=== PATIENT | male | born 1955 | race Caucasian/White ===

== ENCOUNTER 2019-12-01 15:38 | Emergency (ER) | payer MEDICARE, SELFPAY ==
[2019-12-01 15:40] VITALS: BP 156/96; PULSE 65; RESP 12; TEMP 37.3; O2SAT 98; BMI 23.6
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
== END 2019-12-01 17:07 | disposition home or self-care (01) ==
LOC: ED 17:04
PROVIDERS: Emergency Provider Emergency Medicine
DX: S06.9X1A Unspecified intracranial injury with loss of consciousness of 30 minutes or less, initial encounter (principal); S16.1XXA Strain of muscle, fascia and tendon at neck level, initial encounter; S70.01XA Contusion of right hip, initial encounter; V43.54XA Car driver injured in collision with van in traffic accident, initial encounter; Y93.89 Activity, other specified; Y92.9 Unspecified place or not applicable; E78.00 Pure hypercholesterolemia, unspecified; Z72.0 Tobacco use; Z86.73 Personal history of transient ischemic attack (TIA), and cerebral infarction without residual deficits
CPT/HCPCS: 70450; 72125; 73502; 99282

== ENCOUNTER 2020-04-28 11:32 | Inpatient (IN) | payer MEDICARE, SELFPAY ==
[2020-04-28] VITALS (30 sets, daily range): BP systolic 94–154; BP diastolic 35–95; PULSE 70–141; RESP 17–31; TEMP 36.3–36.6; O2SAT 95–100; BMI 23.7; BMI 24.2
--- NOTE | 2020-04-28 11:40 | RAD_ITS ---
STUDY: X-RAY CHEST REASON FOR EXAM: Male, 65 years old. Chest pain TECHNIQUE: Frontal view of the chest COMPARISON: None. FINDINGS: There is patchy opacity in the left lower lung field. The lungs are otherwise clear. There are no pleural effusions. There is no pneumothorax. The heart is normal in size. The visualized osseous structures are within normal limits. RAD/Chest 1 View (Portable) IMPRESSION: Patchy opacity in the left lower lung field which is likely infectious in etiology. Electronically Signed: Gavin Noel, at 12:05 EDT Tel , Service support ,
--- NOTE | 2020-04-28 11:40 | EKG12_ITS ---
Test Reason : CHEST PAIN Blood Pressure : / mmHG Vent. Rate : 082 BPM Atrial Rate : 082 BPM P-R Int : 156 ms QRS Dur : 094 ms QT Int : 366 ms P-R-T Axes : 037 -14 -35 degrees QTc Int : 427 ms Normal sinus rhythm Inferior infarct , recent T wave abnormality, consider anterolateral ischemia Abnormal ECG Confirmed by ANGELINE COLLINS, JAZ ([id number]), assignment desk editor ELLIOTT TRACEY ([id number]) on 04/30/2020 1:07:09 PM Referred By: Fito Qiu Confirmed By:JAZ MARCUS MD
--- NOTE | 2020-04-28 11:45 | CM.ED ---
SOCIAL WORK Reason for Consult: STEMI Responded to STEMI alert. Nursing and physician in with patient. No family present at this time. This worker to remain available for needs. Barbara Malhotra, PROTECTIVE SIGNAL REPAIRER, BALLOON TESTER
--- NOTE | 2020-04-28 11:54 | ED.VIS.GEN ---
History of Present Illness Chief Complaint: Chest Pain Informant: Patient Narrative: Patient is a 65-year-old male who presents to the emerge department for chest pain which is been ongoing for the past 2 days. He initially stated that lying down flat relieved his pain but his pain has become more constant and that is why is coming into the emerge department today. No associated shortness of breath. He feels like the pain is sharp stabbing over his left chest wall. He states feels like my lung is collapsed. He has not taken any aspirin today. He has never had this pain before in the past. Otherwise no known aggravating or relieving factors. No swelling or pain in his calves. No history of heart attacks, DVT/PE. He does have a distant history of stroke. He does not currently take any medications. He does have history of hyperlipidemia. Current every day smoker. Denies any alcohol or drug abuse. Past Medical History - Allergies and Home Meds Allergies/Adverse Reactions: Allergies BEES Allergy (Uncoded 04/28/20 11:38) Anaphylaxis Prior records reviewed: Yes Past Medical History: - - Stroke, hyperlipidemia Smoking Status: Current every day smoker Alcohol: None Drugs: None Review of Systems All systems negative except as indicated General: Denies: Chills, Fever, Sweats Eyes: Denies: Visual changes - bilaterally, Diplopia ENT: Denies: Rhinorrhea, Sore throat Cardiovascular: Reports: Chest pain. Denies: Palpitations Respiratory: Denies: Dyspnea, Cough, Dyspnea on exertion Gastrointestinal: Denies: Abdominal pain, Nausea, Vomiting, Diarrhea Genitourinary: Denies: Dysuria, Hematuria, Frequency Musculoskeletal: Denies: Back pain, Extremity Pain Skin: Denies: Rash, Wounds Neurological: Denies: Headache, Weakness, Numbness Physical Exam Vital Signs/Narrative: Vital Signs Temp Pulse Resp BP Pulse Ox 04/28/20 11:36 97.4 F L 85 22 H 132/35 H 95 Inital Vital Signs reviewed: Yes General: Well nourished, Well developed, Acute Distress, - - Patient moaning and grunting holding his chest. Head: Normocephalic, Atraumatic Eyes: Perrl, EOMI ENT: Moist mucous membranes, No rhinorrhea Neck: Supple, Nontender Cardiovascular: Regular rate, Regular rhythm, No murmurs Respiratory: No distress, CTA bilaterally, Chest nontender Abdomen: Soft, Nontender, Nondistended, Normal bowel sounds Back: Nontender, Normal Inspection Extremities: Nontender, No edema Skin: Normal color, No rash Neurological: Alert, Oriented x3, Cranial nerves II-XII grossly intact, Normal Strength, Normal Sensation Diagnostic/Tx/Re-eval - EKG Initial EKG Interpretation: - - EKG shows a rate of 82 bpm in sinus rhythm. Normal intervals. Left axis deviation. He does have ST elevations in lead II, III and aVF. He also has some elevations in V3 through V5. There are some Q wave changes. No prior EKG for comparison. STEMI alert is called. - Medical Decision Making Patient presents to the emerge department for chest pain last 2 days. Upon arrival an EKG was obtained which did show evidence of ST elevation ND. Heart stat was called and I spoke to Dr. Qiu. Give aspirin, Brilinta, heparin and morphine. Blood work being obtained along with chest x-ray. Patient's chest x-ray did show evidence of consolidation and will treat with community-acquired antibiotics including azithromycin and Rocephin. Blood cultures being obtained. Patient requiring multiple dose of morphine for symptomatic treatment. We will hold off on nitroglycerin given the inferior ND. Patient transported to catheter lab with lead java j2ee developer. Hospitalist aware of patient. - Critical Care Time Critical care time (excluding procedures): 30-74 minutes, Discussing w/Patient &/or Family/Ice Puller, Discussing w/Consultants, Arranging Admission or Transfer, Performing Direct Patient Care at Bedside ED Disposition - Plan for ED Patient: Disposition: Home or Assisted Living Diagnosis: STEMI (ST elevation myocardial infarction), Community acquired pneumonia
[2020-04-28] MEDS: Heparin Injection (Vial) 5,000 UNIT/ML VIAL 4000 UNIT IV (11:55)
[2020-04-28] MEDS: TICAGRELOR 90 MG TABLET 180 MG PO (11:55)
[2020-04-28] MEDS: Aspirin 81 MG TAB.CHEW 324 MG PO (11:56)
[2020-04-28] MEDS: Morphine 4 MG/ML Syringe IV (11:56)
[2020-04-28 11:58] LABS: Absolute Lymphocyte Count 2.92 X10^3/uL (0.83-4.51); Absolute Neutrophil Count 17.1 X10^3/uL (2.0-7.7); Basophil# 0.05 X10^3/uL; Basophil% 0.2 % (0-1); Eosinophil# 0.05 X10^3/uL; Eosinophils% 0.2 % (0-5); Hematocrit 53.6 % (40-54); Hemoglobin 17.4 g/dL (13.0-16.5); Lymphocyte # 2.92 X10^3/ul (4.0); Lymphocyte % 12.7 % (19-41); Mean Corp Hgb Conc 32.5 g/dL (32-36); Mean Corpuscular Volume 98.7 fL (80-94); Mean Platelet Vol. 11.2 fl (6.2-12.0); Monocyte# 2.64 X10^3/uL; Monocyte% 11.5 % (0-10); NRBC Flagged by Analyzer 0 % (0-5); Neutrophil # 17.05 X10^3/uL (2.7-7.7); Neutrophil % 74.1 % (47-70); POSITIVE DIFFERENTIAL YES; Platelet Count 290 K/mm3 (150-450); RBC Distribution Width CV 13.8 % (11.6-14.6); RBC Distribution Width SD 49.9 fl (35.1-43.9); Red Blood Count 5.43 M/mm3 (4.6-6.2)
[2020-04-28 12:02] LABS: Differential Indicated SCAN CRITERIA MET
[2020-04-28 12:17] LABS: International Normalized Ratio 1.1; Prothrombin Time (Protime)PT. 13.3 SECONDS (11.7-14.9)
[2020-04-28] MEDS: HYDROmorphone 1 MG/ML Syringe IV ×3 (12:17→19:13)
[2020-04-28 12:18] LABS: Partial Thromboplast Time 26.9 Seconds (24.1-36.2)
[2020-04-28] MEDS: Ketorolac 30 MG/ML Syringe IV ×2 (12:20→22:10)
--- NOTE | 2020-04-28 12:31 | HP.PCM_ITS ---
Problem List (1) STEMI (ST elevation myocardial infarction) Status: Acute (2) Community acquired pneumonia Status: Acute (3) History of stroke Status: Chronic (4) Hyperlipidemia Status: Chronic History of Present Illness Date of Admission: 04/28/20 Chief Complaint: Chest pain. The patient is a 65 year old M with past medical history as mentioned above presented to the emergency room because of chest pain. This pain started 2 days ago, left-sided chest pain, sharp pain, was mild and has been progressing, today pain went up to 10 constant in severity, radiates to his left upper extremity, associated with shortness of breath and without relieving or aggravating factors. He denies syncope or presyncope. Currently, he is in severe pain, received a total of 4 mg of IV morphine as well as IV Dilaudid with no improvement. He mentioned that he had a fever at home but he is not sure how much it was. He denied cough or sputum production. He denied abdominal pain, nausea or vomiting. In the emergency department, he was afebrile, blood pressure was stable, was dyspneic and tachypneic, pulse ox is 95% on room air. Routine blood work was remarkable for significant leukocytosis, otherwise normal. Chest x-ray revealed left lower lobe linear opacity as well as questionable left basilar infiltrate. EKG revealed normal sinus rhythm, minimal ST elevation in leads II, III, aVF, V3 and V4. Troponin was elevated at 20.5. Patient underwent emergent cardiac catheterization. Past Medical History Past Medical History (Chronic Problems): Chronic Problems Tobacco abuse (Chronic) History of stroke (Chronic) Hyperlipidemia (Chronic) Allergies BEES Allergy (Uncoded 04/28/20 11:38) Anaphylaxis Home Medications: Ambulatory Orders Medication Instructions Recorded NK 12/01/19 Surgical History: no surgical history Lives: Alone Smoking Status: Current every day smoker Tobacco Use: Cigarettes Alcohol: Occasional Drugs: None - *Family History Maternal History Items: No pertinent history Paternal History Items: No pertinent history Review of Systems Constitutional: Reports: Fever. Denies: Anorexia, Chills, Weakness Eyes: Denies: Blurred vision, Double vision, Drainage, Vision Change HEENT: Denies: Difficulty Hearing, Ear Pain, Eye Pain, Nasal Congestion, Sinus Drainage, Sore Throat Cardiovascular: Reports: Chest Pain, Chest Pressure. Denies: Edema, Heaviness, Light Headedness, Orthopnea, Palpitations, Paroxysmal Noc. Dyspnea, Syncope Respiratory: Reports: Pleuritic Pain, Shortness of breath at rest, Shortness of breath upon exertion. Denies: Cough, Sputum production, Wheezing Gastrointestinal: Denies: Abdominal Pain, Constipation, Diarrhea, Nausea, Vomiting Genitourinary: Denies: Dysuria, Frequency, Hematuria Musculoskeletal: Denies: Arm Pain, Back Pain, Foot Pain Skin: Denies: Dryness, Rash Neurological: Denies: Balance problems, Double vision, Change in Speech, Slurred speech, Confusion, Headaches, Incoordination, Numbness Psychiatric: Denies: Anxiety, Depression Endocrine: Denies: Change in Body Habitus, Polydipsia, Polyuria VTE Information - Inpt Only VTE Present on Admission: No VTE Mechan Device Prophylaxis: None VTE Pharm Prophylaxis ordered?: Yes Patient Problems: Active and Suspected Problems STEMI (ST elevation myocardial infarction) (Acute) Community acquired pneumonia (Acute) - Physical Exam Vitals/I&O's: Vital Signs Temp Pulse Resp BP Pulse Ox 97.4 F L 85 25 H 142/93 H 95 04/28/20 11:36 04/28/20 11:36 04/28/20 11:50 04/28/20 11:50 04/28/20 11:36 Oxygen Flow Rate (L/min) 2 Oxygen Delivery Method Nasal Cannula Weight: 170 lb Body Mass Index (BMI) 23.7 General: Alert, Oriented x3, Cooperative, - - He is in severe pain, distress. HEENT: Atraumatic, PERRLA, EOMI, Normocephalic Oral: Moist Mucosa, No Gingival or Mucosal Lesions/ Ulcerations Neck: Supple, No JVD, Negative Carotid Bruits, Trachea Midline, Thyroid Normal Size and Texture Lungs: No wheeze, Diminished, Rales, Rhonchi, Short of Breath, - - Decreased breath sounds bilateral, bilateral rhonchi. Cardiovascular: Regular rate, Regular Rhythm, Normal S1, Normal S2, No murmurs, PMI Normal Abdomen: Bowel Sounds Present, Soft, Non Tender, Non-Distended, No Hepato- splenomegaly Extremities: No cyanosis, No edema Skin: No rashes, No breakdown Lymphatic: No Cervical, Supraclavicular, or Inguinal Adenopathy Neurological: Cranial nerves II-XII grossly intact, Motor Exam 5/5 strength throughout Psych/Mental Status: Anxious, Restless, Alert and oriented to time, place, person, mood and affect Laboratory Results 04/28/20 11:40: WBC 23.0 H, RBC 5.43, Hgb 17.4 H, Hct 53.6, MCV 98.7 H, MCH 32.0, MCHC 32.5, RDW Std Deviation 49.9 H, RDW Coeff of Julita 13.8, Plt Count 290, MPV 11.2, Immature Gran % (Auto) 1.300 H, Neut % (Auto) 74.1 H, Lymph % (Auto) 12.7 L, [place] % (Auto) 11.5 H, Eos % (Auto) 0.2, Baso % (Auto) 0.2, Absolute Neuts (auto) 17.1 H, Absolute Lymphs (auto) 2.92, Nucleated RBC % 0, Diff Path Review February04/28/20 11:40: Sodium Pending, Potassium Pending, Chloride Pending, Carbon Dioxide Pending, Anion Gap Pending, BUN Pending, Creatinine Pending, Est GFR (MDRD) Af Amer Pending, Est GFR (MDRD) Non-Af Pending, BUN/Creatinine Ratio Pending, Glucose Pending, Calcium Pending, Magnesium Pending, Troponin I Pending 04/28/20 11:40: PT 13.3, INR 1.1, APTT 26.9 Laboratory Tests 04/28/20 04/28/20 04/28/20 Range/Units 11:40 11:40 11:40 WBC 23.0 H (4.4-11.0) K/mm3 RBC 5.43 (4.6-6.2) M/mm3 Hgb 17.4 H (13.0-16.5) g/dL Hct 53.6 (40-54) % MCV 98.7 H (80-94) fL MCH 32.0 (27.0-32.0) pg MCHC 32.5 (32-36) g/dL RDW Std Deviation 49.9 H (35.1-43.9) fl RDW Coeff of Julita 13.8 (11.6-14.6) % Plt Count 290 (150-450) K/mm3 MPV 11.2 (6.2-12.0) fl Immature Gran % (Auto) 1.300 H (0.0-0.9) % Neut % (Auto) 74.1 H (47-70) % Lymph % (Auto) 12.7 L (19-41) % [place] % (Auto) 11.5 H (0-10) % Eos % (Auto) 0.2 (0-5) % Baso % (Auto) 0.2 (0-1) % Absolute Neuts (auto) 17.1 H (2.0-7.7) X10^3/uL Absolute Lymphs (auto) 2.92 (0.83-4.51) X10^3/uL Nucleated RBC % 0 (0-5) % Diff Path Review February foll PT 13.3 (11.7-14.9) SECONDS INR 1.1 APTT 26.9 (24.1-36.2) Seconds Sodium 137 (136-145) mmol/L Potassium 4.4 (3.5-5.1) mmol/L Chloride 103 (98-107) mmol/L Carbon Dioxide 29.0 (21.0-32.0) mmol/L Anion Gap 5 (5-15) BUN 13 (7-18) mg/dL Creatinine 1.30 (0.70-1.30) mg/dL Estim Creat Clear Calc 61.95 ml/min Est GFR (MDRD) Af Amer 72 (>60) mL/min Est GFR (MDRD) Non-Af 59 L (>60) mL/min BUN/Creatinine Ratio 10.0 (10-20) RATIO Glucose 119 H (74-106) mg/dL Calcium 9.4 (8.5-10.1) mg/dL Magnesium 2.5 (1.6-2.6) mg/dL Troponin I 20.500 H* (<0.045) ng/mL Clinical Impression(s) from Imaging Studies Chest X-Ray 04/28/20 11:40 IMPRESSION: Patchy opacity in the left lower lung field which is likely infectious in etiology. Electronically Signed: Gavin Noel, at 12:05 EDT Tel , Service support , Current Medications Ceftriaxone Sodium 2 gm/ (Sodium Chloride) 50 mls @ 100 mls/hr IV X1 ONE Stop: 04/28/20 12:40 Azithromycin 500 mg/ Dextrose 255 mls @ 250 mls/hr IV X1 ONE Stop: 04/28/20 13:13 Assessment/Plan All Active Problems STEMI (ST elevation myocardial infarction) (Acute) Community acquired pneumonia (Acute) This is a 65 years old male patient presented to the emergency room because of chest pain or shortness of breath, found to have acute ST elevation MS, underwent emergent cardiac catheterization and also found to have community- acquired pneumonia. #[address] elevation MS: Patient currently having chest pain. EKG revealed normal sinus rhythm, minimal ST elevation in leads II, III, aVF, V3 and V4. He received aspirin, IV heparin and loading Brilinta. He underwent emergent cardiac catheterization, found to have occluded RCA, status post stenting. Reportedly, pain resolved after stenting of the RCA. Plan: Admit to ICU, complete bedrest, cardiac diet, gentle IV fluids for hydration, IV morphine PRN for pain, Tylenol PRN, start aspirin, Lipitor, Brilinta, beta blockers, 2D echocardiogram, cardiology consult, repeat CBC and CMP tomorrow morning, fasting lipid profile, hemoglobin A1c, TSH, PT OT evaluation and treatment when appropriate. #2 bilateral community-acquired pneumonia: This is based on history of fever, pleuritic chest pain, chest x-ray findings with significant leukocytosis. Although patient denied significant cough or phlegm. Chest x-ray reviewed. Plan: Blood culture, urinalysis, urine culture, lactic acid, start IV Rocephin and Zithromax, albuterol PRN, COVID-19 PCR, pneumococcal and Legionella antigen. #3 history of stroke: With no focal deficit. Patient will be on aspirin and statins. #4 hyperlipidemia: Currently not taking medications. Plan to check fasting lipid profile, start Lipitor. #5 tobacco abuse: NicoDerm patch. #6 DVT prophylaxis: Subcu Lovenox. This note was generated with [employer]up dictation software. It may contain incorrect words, spelling, and punctuation that were not noted in checking the note before signing. Inpatient E&M: 42571 Init Hosp L3
[2020-04-28 12:36] LABS: Anion Gap 5 (5-15); BUN 13 mg/dL (7-18); Calcium,Total 9.4 mg/dL (8.5-10.1); Chloride 103 mmol/L (98-107); EST Glomerular Filtration Rate 59 mL/min (>60); Est Glom Filt Rate - Afr Amer 72 mL/min (>60); Estimated Creatinine Clearance 61.95 ml/min; Glucose 119 mg/dL (74-106); Magnesium 2.5 mg/dL (1.6-2.6); Potassium 4.4 mmol/L (3.5-5.1); Sodium Level 137 mmol/L (136-145)
[2020-04-28 13:56] LABS: ACT Activated Clotting Time 285 sec (74-137)
--- NOTE | 2020-04-28 14:00 | EKG12_ITS ---
Test Reason : AM EKG Blood Pressure : / mmHG Vent. Rate : 063 BPM Atrial Rate : 063 BPM P-R Int : 186 ms QRS Dur : 100 ms QT Int : 424 ms P-R-T Axes : 007 -01 -18 degrees QTc Int : 433 ms Normal sinus rhythm Inferior infarct , age undetermined Abnormal ECG When compared with ECG of 29-APR-2020 11:47, MANUAL COMPARISON REQUIRED, DATA IS UNCONFIRMED Confirmed by ANGELINE COLLINS, JAZ ([id number]), medical editor ELLIOTT TRACEY ([id number]) on 05/01/2020 10:11:51 AM Referred By: Fito Qiu Confirmed By:JAZ MARCUS MD
--- NOTE | 2020-04-28 14:04 | CL.I_ITS ---
Patient Name: ALANA GONGORA Study Date: 04/28/2020 Performing: Fito Qiu MD Ht: 70.86 inches 180 cm : 1955 Wt: 169.76 lbs 77 kg Age: 65 Gender: male BSA: 1.96 PROCEDURE(S) PERFORMED QD80-EMU/COR/LV HM75-PDL, CUBA AND/OR PTCA, ARTERY OR GRAFT, SINGLE VESSEL CLINICAL PROFILE AND CO-MORBIDITIES Patient presents with STEMI for emergent cardiac cath. Indications: ACS > 24 hrs, New Onset Angina <= 2 months, Suspected CAD Heart Failure: None Stress/Imaging Stress/Image Study Performed: No Angina Classification Anginal Classification w/in 2 Weeks: CCS IV CAD Presentations: Unstable angina. STEMI. Symptom onset Date/Time: 04/28/2020 11:00:00 Time Shahida mated Comorbidities/Risk Factors: Current/Recent Smoker (< 1year) Hypertension Dyslipidemia CONCLUSIONS Single vessel CAD of the RCA Non obstructive coronary arteries Segmented LV systolic dysfunction- Mild LVEF: by LV gram 45-50 % Normal Left Ventricular End Diastolic Pressure Successful Emergent heparin/brilinta assisted PTCA/CUBA mid/distal RCA with a 2.25 x 38 Promus Stent, post dilated with a 3.0 x 12 NC Balloon; 100%-->0%, no dissection. Successful PTCA/CUBA proximal/mid RCA with a 2.5 x 24 Promus Synergy, post dilated throughout with a 3 .5 x 12 NC balloon; 100%-->0%, no dissection. small segment of ectasia treated with NC balloon with good stent apposition. RECOMMENDATIONS Referred for immediate PCI Highly recommend quitting all tobacco products Follow up with primary hand hardener Risk factor modification ASA Indefinitley Plavix for at least 12 months Routine post interventional care Refer for Outpatient Cardiac Rehab Manual sheath removal per protocol Follow up with Dr. Qiu Stress test in 3 weeks to eval proximal LCX lesion. Pt is too thin for Mynx closure. Manual sheath removal. D/w Dr Moe. DESCRIPTION OF PROCEDURE The patient arrived to the procedure lab. The risks and benefits of the procedure as well as a full d escription of our services here and lack of surgical backup were fully explained to the patient and/o r their significant other prior to the catheterization. The Timeout was completed, verifying the enoc ect patient and procedure. The patient's procedural site was prepped and draped in the usual fashion. Local anesthetic was given subcutaneously to right groin region with Lidocaine 2%. Using a modified Seldinger technique, arterial access was obtained via the right femoral artery, a 6Fr sheath was inse rted.. Left Coronary Artery selective angiography was performed in multiple views using a 4 Fr. JL5 catheter. Left Coronary Artery selective angiography was performed in multiple views using a 4 Fr. JL 4 catheter. Left Ventriculography was performed in FELIPE projection using a 4 Fr. Pigtail catheter. LV to AO pullback pressures were then recordedThe images were reviewed and options discussed. A decision was then made to proceed with an Intervention, IVUS or other adjunct procedure. HSI Guide catheter was inserted and engaged into the RCA. Runthrough Guide wire was advanced to t he RCA. HSI Guide catheter was exchanged for a HSII 2x12 Emerge Balloon catheter was inserted. Balloo n catheter was advanced across lesion in the right coronary, mid. PTCA balloon inflated at 6 atms for 6 secs. PTCA balloon inflated at 10 atms for 8 secs. Angiogram performed post balloon dilatation. 2. 5x24 Synergy Drug Eluting stent was inserted. Drug Eluting stent was removed intact, failed to cross lesion 2.5x12 Emerge Balloon catheter was inserted. Balloon catheter was advanced across lesion in th e right coronary, mid. PTCA balloon inflated at 6 atms for 8 secs. PTCA balloon inflated at 6 atms fo r 8 secs. PTCA balloon inflated at 6 atms for 6 secs. Angiogram performed post balloon dilatation. 2x 12 Emerge Balloon catheter was inserted. Balloon catheter was advanced across lesion in the right cor onary, distal. PTCA balloon inflated at 6 atms for 6 secs. PTCA balloon inflated at 6 atms for 8 secs. PTCA balloon inflated at 8 atms for 8 secs. 2.25x38 Synergy Drug Eluting stent was insert ed. Drug Eluting stent was removed intact, failed to cross lesion 2.5x12 Emerge Balloon catheter was inserted. Balloon catheter was advanced across lesion in the right coronary, mid. PTCA balloon inflat ed at 10atms for 10 secs. PTCA balloon inflated at 12 atms for 20 secs. PTCA balloon inflated at 12 a tms for 15 secs. 2.25x38 Synergy Drug Eluting stent was inserted. Drug Eluting stent was removed inta ct, failed to cross lesion BMW Guide wire was inserted as a allen wire 3x12 Emerge Balloon catheter w as inserted. Balloon catheter was advanced across lesion in the right coronary, mid. PTCA balloon inf lated at 6 atms for 6 secs. PTCA balloon inflated at 6 atms for 6 secs. PTCA balloon inflated at 6 at ms for 10 secs. 2.25x38 Synergy Drug Eluting stent was reinserted Drug Eluting stent was removed inta ct, failed to cross lesion 2.5x12 Emerge Balloon catheter was reinserted Balloon catheter was advanced across lesion in the right coronary, distal. PTCA balloon inflated at 6 atms for 8 secs. PTCA balloon inflated at 6 atms for 8 secs. 2.25x38 Synergy Drug Eluting stent was reinserted Drug E luting stent was advanced across the lesion in the right coronary, mid. Angiogram performed post sten t deployment. 2.5x24 Synergy Drug Eluting stent was inserted. Drug Eluting stent was advanced across the lesion in the right coronary, proximal. 3.5x12 NC Emerge Balloon catheter was inserted. Balloon c atheter was advanced across lesion in the right coronary, proximal. Angiogram performed post balloon dilatation. Balloon catheter was repositioned to additional lesion in the right coronary, proximal. A ngiogram performed post balloon dilatation. The arterial sheath was exchanged to upsize due to blee ding around the insertion site. The arterial sheath was left in to be pulled in the unit / patient ro om. The arterial sheath was sutured in place and capped CORONARY ANGIOGRAPHY DOMINANCE: Right Dominant LEFT HEART ASSESSMENT Left Ventricular Ejection Fraction: by LV Gram 45-50 % LVEDP: 7 mmHg Depressed Left Ventricular systolic function Normal Left Ventricular End Diastolic Pressure Inferior Basal Hypokinesis - Mild LEFT MAIN: Angiographically normal LEFT ANTERIOR DESCENDING ARTERY: PROX LAD: Mild luminal irregularities less than 30% CIRCUMFLEX ARTERY: PROX CIRC: 65 % Stenosis OM 1: Proximal - Mild luminal irregularities less than 30% RIGHT CORONARY ARTERY: PROX RCA: 75 % Stenosis MID RCA: is occluded DISTAL RCA: 85 % Stenosis RT PDA: Mid - 65, too small for stent % Stenosis COLLATERAL FLOW: Collateral flow from Left to Right INTERVENTION INFORMATION LESION SITE: RCA (Mid) Lesion Complexity: High/C, lesion at bifurcation: No, thrombus present: Yes, lesion length: 24 mm, cu lprit lesion: Yes Pre Stenosis: 100 % Pre intervention MERYL flow: 0 PROCEDURE: Drug Eluting Stent with pre and post dilatation Post Stenosis: 0 % Post intervention MERYL flow: 3 Lesion Devices: Terumo .014 Runthrough Extra Floppy 180cm straight Medtronic 6 Fr HS1 100cm Guide Catheter Medtronic 6 Fr HSII 100cm Guide Catheter Carlos Sci EMERGE MR 2.00x12 BALLOON Carlos Sci EMERGE MR 2.50x12 BALLOON Carlos Sci Synergy MR CUBA 2.25x38 [place] .014 BMW Raymond Straight 190cm Carlos Sci EMERGE MR 3.00x12 BALLOON LESION SITE: RCA (Distal) Lesion Complexity: High/C, lesion at bifurcation: No, thrombus present: No, lesion length: 38 mm, cul prit lesion: No Pre Stenosis: 100 % Pre intervention MERYL flow: 0 PROCEDURE: Drug Eluting Stent with pre and post dilatation Post Stenosis: 0 % Lesion Devices: Terumo .014 Runthrough Extra Floppy 180cm straight Medtronic 6 Fr HSII 100cm Guide Catheter Carlos Sci EMERGE MR 2.00x12 BALLOON Carlos Sci EMERGE MR 2.50x12 BALLOON [place] .014 BMW Raymond Straight 190cm LESION SITE: RCA (Proximal) Lesion Devices: Terumo .014 Runthrough Extra Floppy 180cm straight Carlos Sci Synergy MR CUBA 2.50x24 Carlos Sci NC EMERGE MR 3.50x12 BALLOON COMPLICATIONS No Complications PROCEDURE MEDICATIONS Fentanyl 25 mcg IV Fentanyl 25 mcg IV Oxygen: 2 L/min via nasal cannula Heparin 6000 unit(s) IV 04/28/2020 12:46:01 Heparin 4000 unit(s) IV 04/28/2020 13:08:26 Nitro 200 mcg IC 04/28/2020 12:51:38 Nitro 200 mcg IC 04/28/2020 12:51:38 Nitro 200 mcg IC 04/28/2020 13:28:25 SUMMARY OF HEMODYNAMIC DATA Time AIR REST ECG 12:30:18 AO 150/83 (110) SA 12:41:52 LV 125/-18, 8 13:44:05 LV 125/-15, 9 13:44:12 LVp 123/-14, 7 13:44:17 AOp 105/57 (77) 13:44:22 AO 113/60 (82) 13:44:27 Signed By Fito Qiu MD On 04/28/2020 14:04:15 Fito Qiu MD
--- NOTE | 2020-04-28 14:07 | ECHOCS_ITS ---
Reason For Study: S/P SD Procedure This was a 2D Doppler, Color Flow transthoracic echocardiogram. Exam performed portable in ICU/CCU. Left Ventricle Moderate concentric left ventricular hypertrophy. Stage 2 diastolic dysfunction. No regional wall motion abnormalities noted. Right Ventricle Normal size and thickness. Normal systolic function. Atria Normal left atrium. Normal right atrium. Normal atrial septum. Mitral Valve The mitral valve is structurally normal. No prolapse or stenosis seen. Mild (1+) mitral valve insufficiency. Tricuspid Valve Normal tricuspid valve. Mild (1+) tricuspid valve insufficiency. Right ventricular systolic pressure estimated to be 24 mmHg. Aortic Valve Trisinus/trileaflet aortic valve. Mild focal aortic valve thickening. There is no aortic stenosis. Pulmonic Valve Normal pulmonic valve. Great Vessels Normal aortic root. Normal arch. Normal inferior vena cava. Inferior vena cava collapse with sniff. Pericardium/Pleural No pericardial effusion. MMode/2D Measurements & Calculations LVIDd: 4.3 cm IVSd: 1.6 cm LA dimension: 3.6 cm LVIDs: 2.8 cm LVPWd: 1.3 cm FS: 33.9 % LAV(MOD-bp): 53.1 ml LA A4 area: 18.2 cm2 RA A4 area: 17.3 cm2 LAV(MOD-bp) Indexed: 26.5 ml/m2 LAV(MOD-sp2): 60.7 ml LAV(MOD-sp4): 41.7 ml Time Measurements MV dec time: 0.23 sec Doppler Measurements & Calculations MV E max angel: 88.3 cm/sec Lat Peak E' Angel: 15.9 cm/sec Med Peak E' Angel: 6.3 cm/sec MV A max angel: 61.9 cm/sec E/E' lat: 5.5 E/E' med: 14.0 MV E/A: 1.4 MV V2 max: 100.2 cm/sec MV P1/2t max angel: 102.1 cm/sec Ao V2 max: 196.5 cm/sec MV max P.0 mmHg MV P1/2t: 104.7 msec Ao max P.4 mmHg MV V2 mean: 60.6 cm/sec MV dec slope: 285.7 cm/sec2 Ao V2 mean: 132.3 cm/sec MV mean P.6 mmHg MVA(P1/2t): 2.1 cm2 Ao mean P.0 mmHg MV V2 VTI: 28.4 cm Ao V2 VTI: 41.3 cm LV V1 max: 119.9 cm/sec MR max angel: 563.9 cm/sec PA V2 max: 81.9 cm/sec LV V1 max P.8 mmHg MR max P.2 mmHg LV V1 mean P.7 mmHg MR mean angel: 443.6 cm/sec LV V1 mean: 75.2 cm/sec MR mean P.7 mmHg LV V1 VTI: 26.6 cm MR VTI: 192.6 cm TR max angel: 216.5 cm/sec TR max P.7 mmHg Interpretation Summary Moderate concentric left ventricular hypertrophy. Stage 2 diastolic dysfunction. Mild (1+) mitral valve insufficiency. Mild (1+) tricuspid valve insufficiency. Right ventricular systolic pressure estimated to be 24 mmHg. There is no aortic stenosis. There is no comparison study available. Ordering Physician: Fito Qiu Referring Physician: Fito Qiu Performed By: Chaz Pat RCS
[2020-04-28] MEDS: 0.9% Normal Saline 1,000 ML 150 ML IV (14:13)
[2020-04-28 14:31] LABS: ACT Activated Clotting Time 175 sec (74-137)
[2020-04-28 14:43] LABS: Hemoglobin A1c 5.2 % (3.8-5.6)
[2020-04-28 14:44] LABS: Thyroid Stim Hormone (TSH) 0.38 uIU/mL (0.358-3.74)
[2020-04-28] MEDS: diazePAM 5 MG Tablet PO (14:47)
[2020-04-28] MEDS: Ceftriaxone 1 GM/50 ML BAG IV (14:49)
[2020-04-28 15:17] LABS: Lactic Acid 1.3 mmol/L (0.4-1.9)
[2020-04-28 17:00] LABS: Probe Check PASS; Specimen Processing Control PASS
[2020-04-28 17:16] LABS: ACT Activated Clotting Time 158 sec (74-137)
[2020-04-28 17:16] LABS: ACT Activated Clotting Time 213 sec (74-137)
[2020-04-28] MEDS: fentaNYL 100 MCG/2 ML Ampul 25 MCG IV (17:43)
[2020-04-28] MEDS: Midazolam 2 MG/2 ML Syringe IV (17:43)
--- NOTE | 2020-04-28 19:34 | NURSING ---
pt restless knee immobilizer to rt leg co chest pain ekg completed sent to dr holt orders received, medicated as ordered with relief of pain
[2020-04-28] MEDS: Metoprolol Tartrate 25 MG Tablet 12.5 MG PO (21:58)
[2020-04-28] MEDS: Atorvastatin Calcium 80 MG Tablet PO (21:58)
[2020-04-28] MEDS: TICAGRELOR 90 MG TABLET PO (21:58)
[2020-04-28] MEDS: Zolpidem Tartrate 5 MG Tablet PO (22:09)
--- NOTE | 2020-04-28 22:09 | NURSING ---
right groin dressing with blood on gauze, drainage marked, sandbag remains in place. educated patient in depth on brilinta, lipitor, lopressor, and aspirin, as well as keeping right leg straight and still and head on the pillow. Discussed risks with pt if bleeding occurs from sheath site. Pt needs lots of reinforcement. This RN will exit room and see pt on camera lifting head up, restless in bed. PRN pain meds and insomnia med to be given per request. Will cont to monitor and educate.
[2020-04-28] MEDS: 0.9% Saline Lock 10 ML Syringe IV ×2 (22:10→23:18)
[2020-04-28] MEDS: 0.9% Normal Saline 1,000 ML 75 ML IV (22:15)
[2020-04-28 22:20] LABS: Mucous, Urine 0 SEEN /hpf (<or=2+); Red Blood Cells-Urine 0 SEEN /hpf (0-5); Squamous Epithelial Cells - UA 0 SEEN /hpf (0-5)
[2020-04-28 22:23] LABS: Color, Urine Yellow (Yellow); Glucose, Dipstick Normal (Normal); Ketone-Dipstick 50 mg/dl (Negative); Leukocyte Esterase-Dipstick Negative /ul (Negative); Nitrite-Dipstick Negative (Negative); Occult Blood-Urine 10 /ul (Negative); Protein-Dipstick 30 mg/dl (Negative); Specific Gravity, Urine 1.015 (1.002-1.030); Urine Bilirubin Dipstick Negative (Negative); Urine Clarity Sl. Cloudy (Clear); Urine Urobilinogen 1 mg/dl (Normal)
--- NOTE | 2020-04-28 22:47 | EKG12_ITS ---
Test Reason : CONVERTED TO SR Blood Pressure : / mmHG Vent. Rate : 068 BPM Atrial Rate : 068 BPM P-R Int : 182 ms QRS Dur : 102 ms QT Int : 412 ms P-R-T Axes : 010 -10 -29 degrees QTc Int : 438 ms Normal sinus rhythm Inferior infarct ,recent Anterior injury pattern Abnormal ECG When compared with ECG of 29-APR-2020 04:55, MANUAL COMPARISON REQUIRED, DATA IS UNCONFIRMED Confirmed by ANGELINE COLLINS, JAZ ([id number]), online editor ELLIOTT TRACEY ([id number]) on 05/01/2020 10:12:17 AM Referred By: Fito Qiu Confirmed By:JAZ MARCUS MD
--- NOTE | 2020-04-28 22:49 | EKG12_ITS ---
Test Reason : EKG CHANGES Blood Pressure : / mmHG Vent. Rate : 137 BPM Atrial Rate : 159 BPM P-R Int : 000 ms QRS Dur : 100 ms QT Int : 308 ms P-R-T Axes : 000 -12 -43 degrees QTc Int : 465 ms Atrial fibrillation Inferior infarct , age undetermined Anterior injury pattern Abnormal ECG Confirmed by ANGELINE COLLINS, JAZ ([id number]), editor producer BREANN HERNANDEZ ([id number]) on 05/03/2020 9:45:55 AM Referred By: Fito Qiu Confirmed By:JAZ MARCUS MD
[2020-04-28 22:53] LABS: Bacteria RARE /hpf (None Seen); White Blood Cells 0-5 SEEN /hpf (0-5)
[2020-04-28] MEDS: Metoprolol Tartrate 5 MG/5 ML Vial IV (23:18)
[2020-04-29] VITALS (44 sets, daily range): BP systolic 79–132; BP diastolic 47–90; PULSE 58–140; RESP 14–36; TEMP 36.1–36.6; O2SAT 18–100
[2020-04-29] MEDS: Amiodarone 360 MG in Dextrose 5% Viaflo Bag 192.8 ML 33.3 MG CONT INF (01:15)
[2020-04-29] MEDS: fentaNYL 100 MCG/2 ML Ampul 25 MCG IV ×2 (02:16→20:26)
[2020-04-29] MEDS: 0.9% Saline Lock 10 ML Syringe IV (02:16)
[2020-04-29 04:11] LABS: Absolute Lymphocyte Count 2.54 X10^3/uL (0.83-4.51); Absolute Neutrophil Count 11.8 X10^3/uL (2.0-7.7); Basophil# 0.02 X10^3/uL; Basophil% 0.1 % (0-1); Eosinophil# 0.02 X10^3/uL; Eosinophils% 0.1 % (0-5); Hematocrit 42.3 % (40-54); Hemoglobin 13.9 g/dL (13.0-16.5); Lymphocyte # 2.54 X10^3/ul (4.0); Lymphocyte % 15.4 % (19-41); Mean Corp Hgb Conc 32.9 g/dL (32-36); Mean Corpuscular Hgb 32.1 pg (27.0-32.0); Mean Corpuscular Volume 97.7 fL (80-94); Mean Platelet Vol. 11.4 fl (6.2-12.0); Monocyte# 1.98 X10^3/uL; NRBC Flagged by Analyzer 0 % (0-5); Neutrophil # 11.83 X10^3/uL (2.7-7.7); POSITIVE DIFFERENTIAL YES; Platelet Count 227 K/mm3 (150-450); RBC Distribution Width CV 13.4 % (11.6-14.6); RBC Distribution Width SD 48.4 fl (35.1-43.9); Red Blood Count 4.33 M/mm3 (4.6-6.2); White Blood Count 16.5 K/mm3 (4.4-11.0)
[2020-04-29 04:16] LABS: Differential Indicated SCAN CRITERIA MET
[2020-04-29 05:03] LABS: ALB/GLOB Ratio 0.7 RATIO (0.9-2.4); AST(SGOT) 93 U/L (15-37); Alanine Aminotransfer ALT/SGPT 44 U/L (16-61); Albumin, Serum 2.6 g/dL (3.2-5.0); Alkaline Phosphatase 70 U/L (45-117); Anion Gap 9 (5-15); BUN 16 mg/dL (7-18); BUN/Creat Ratio 15.1 RATIO (10-20); Calcium,Total 7.9 mg/dL (8.5-10.1); Chloride 106 mmol/L (98-107); Cholesterol 158 mg/dL (200); Creatinine, Serum 1.06 mg/dL (0.70-1.30); EST Glomerular Filtration Rate 75 mL/min (>60); Est Glom Filt Rate - Afr Amer 91 mL/min (>60); Estimated Creatinine Clearance 75.97 ml/min; Globulin 3.7 g/dL (2.2-4.2); Glucose 115 mg/dL (74-106); High Density Lipoprotein 36 mg/dL; Protein, Total 6.3 g/dL (6.4-8.2); Sodium Level 138 mmol/L (136-145); Triglycerides 61 mg/dL; Very Low Density Lipoprotein 12 mg/dL (5-40)
[2020-04-29 05:13] LABS: Differential Comment SCANNED; Reactive Lymphocyte 2+
[2020-04-29] MEDS: 0.9% Normal Saline 1,000 ML 999 ML IV (05:40)
[2020-04-29] MEDS: Amiodarone 360 MG in Dextrose 5% Viaflo Bag 192.8 ML 16.7 MG CONT INF (07:27)
--- NOTE | 2020-04-29 08:26 | PN.CARD_ITS ---
Subjectve: Patient seen and evaluated. Events of yesterday noted. Has some constant chest discomfort worse on taking in deep breaths. Objective: Vital Signs Temp Pulse Resp BP Pulse Ox 97.5 F L 94 24 H 103/59 L 95 04/29/20 04:00 04/29/20 06:30 04/29/20 06:00 04/29/20 06:30 04/29/20 06:00 Oxygen Flow Rate (L/min) 2 Oxygen Delivery Method Nasal Cannula Weight: 177 lb 14.609 oz Body Mass Index (BMI) 24.2 Intake and Output for Last 24 Hours 04/27/20 04/28/20 04/29/20 23:59 23:59 23:59 Intake Total 1665 / 1665 1599.60 / 1599.60 Output Total 600 / 600 100 / 100 Balance 1065 / 1065 1499.60 / 1499.60 General: Awake, Alert, Oriented x 3 HEENT: PERRL, EOMI, Sclera Non Icteric Neck: Supple, Good ROM, No Lymph Node Enlargement Lungs: Clear to auscultation Cardiovascular: Irregular Rhythm, Normal S1, Normal S2, No Murmurs, No Rubs, No Gallops Vascular: No Carotid Bruits, Normal Femoral Pulses, Normal Radial Pulses, Normal Dorsalis Pedal Pulse, Normal Posterior Tibial Pulses Abdomen: Bowel Sounds Present, Soft, Non Tender, No HSM, No Organomegaly Extremities: No Cyanosis, No Clubbing, No edema Musculoskeletal: No Erythema Skin: No Rashes Lymphatic: No Lymph Node Enlargement Neurological: No Focal Motor or Sensory Deficit Psych/Mental Status: Appropriate 04/28/20 11:40: WBC 23.0 H, RBC 5.43, Hgb 17.4 H, Hct 53.6, MCV 98.7 H, MCH 32.0, MCHC 32.5, Plt Count 290, MPV 11.2, Immature Gran % (Auto) 1.300 H, Neut % (Auto) 74.1 H, Lymph % (Auto) 12.7 L, [place] % (Auto) 11.5 H, Eos % (Auto) 0.2, Baso % (Auto) 0.2, Absolute Neuts (auto) 17.1 H, Nucleated RBC % 0 04/28/20 11:40: Sodium 137, Potassium 4.4, Chloride 103, Carbon Dioxide 29.0, Anion Gap 5, BUN 13, Creatinine 1.30, Est GFR (MDRD) Af Amer 72, Est GFR (MDRD) Non-Af 59 L, BUN/Creatinine Ratio 10.0, Glucose 119 H, Calcium 9.4, Magnesium 2.5, Troponin I 20.500 H* 04/28/20 11:40: PT 13.3, INR 1.1, APTT 26.9 04/28/20 11:40: Hemoglobin A1c 5.2 04/28/20 14:20: D-Dimer Quant (PE/DVT) 1.00 H* 04/28/20 14:20: Lactic Acid 1.3 04/28/20 21:45: Urine Color Yellow, Urine Clarity Sl. Cloudy, Urine pH 5.0, Ur Specific [place] 1.015, Urine Protein 30 H, Urine Glucose (UA) Normal, Urine Ketones 50 H, Urine Occult Blood 10 H, Urine Nitrite Negative, Urine Bilirubin Negative, Urine Urobilinogen 1 H, Ur Leukocyte Esterase Negative, Urine RBC 0 SEEN, Urine WBC 0-5 SEEN 04/28/20 22:40: Troponin I 38.800 H* 04/29/20 04:05: WBC 16.5 H, RBC 4.33 L, Hgb 13.9, Hct 42.3, MCV 97.7 H, MCH 32.1 H, MCHC 32.9, Plt Count 227, MPV 11.4, Immature Gran % (Auto) 0.400, Neut % (Auto) 72.0 H, Lymph % (Auto) 15.4 L, [place] % (Auto) 12.0 H, Eos % (Auto) 0.1, Baso % (Auto) 0.1, Absolute Neuts (auto) 11.8 H, Nucleated RBC % 0 04/29/20 04:05: Sodium 138, Potassium 4.0, Chloride 106, Carbon Dioxide 23.0, Anion Gap 9, BUN 16, Creatinine 1.06, Est GFR (MDRD) Af Amer 91, Est GFR (MDRD) Non-Af 75, BUN/Creatinine Ratio 15.1, Glucose 115 H, Calcium 7.9 L, Total Bilirubin 1.20 H, Triglycerides 61, Cholesterol 158, LDL Cholesterol 110, VLDL C holesterol 12, HDL Cholesterol 36 L Rhythm: EKG: ECHO: Stress Test: Cardiac Cath: PCI: CT Surgery: Holter monitor: EPS: PPM: CXR: Chest CT Scan: Medical Necessity - Tobacco Use Smoking Status: Current every day smoker Tobacco Use: Cigarettes Assessment/Plan 1. Recent inferior wall myocardial infarction * Patient presented with chest discomfort was noted to have EKG changes with T wave inversions noted in the inferior leads and Q waves suggestive of a subacute inferior wall myocardial infarction. The patient was taken to the cardiac catheterization lab was noted to have a totally occluded right coronary artery for which he underwent angioplasty and stenting successfully. Mild disease was noted in the left anterior descending artery and moderate disease noted in the circumflex artery. * The plan will be to continue current medical therapy and evaluated the circumflex artery with stress testing at some point though it appears nonobstructive at this particular time * Will obtain echocardiogram to assess left ventricular function * 2. Post TX pericarditis * His chest discomfort this morning is suggestive of a post TX pericarditis. There is ST elevation noted in lead V2 and V1 in 1 and aVL. In addition due to the characterization of the chest discomfort in the late presentation I suspect that this is the etiology. * Will start colchicine 0.6 mg twice daily * Will start Indocin 25 mg 3 times daily with GI protection * Prefer to have patient in the 45 or 60 degree position * Keep in the ICU 1 more day * 3. Atrial fibrillation * Patient developed atrial fibrillation with a rapid ventricular response rate * Currently being treated with intravenous amiodarone * Will hold off on any systemic anticoagulation for now * The above is likely secondary to the pericarditis * 4. Risk factor modification * Patient to continue with aggressive risk factor modification including smoking cessation as well as high intensity statin use. * * Thank you for allowing me to participate in the care of your patient. Please don't hesitate to call if any issues arise.
--- NOTE | 2020-04-29 08:30 | PCM.PROGNOTE ---
Patient Problems: Active and Suspected Problems STEMI (ST elevation myocardial infarction) (Acute) Community acquired pneumonia (Acute) Subjective: Chief complaint: Follow-up after admission for acute versus subacute ST elevation CA, probable pericarditis and community-acquired pneumonia. Patient seen and examined. Earlier this morning, patient had an episode of severe chest pain. Nursing staff mentioned that patient was charting because of pain. He had similar episode in the ED yesterday. At this time, he has no more chest pain. Denied shortness of breath. Denies dizziness or lightheadedness. He went into A. fib with RVR, given 1 dose of IV metoprolol and he became hypotensive. He was started on IV amiodarone drip for A. fib with RVR. Currently, he remained in A. fib with RVR, heart rate has been around 100, blood pressure is borderline, pulse ox is 97% on 2 L. - Physical Exam Vitals/I&O's: Vital Signs Temp Pulse Resp BP Pulse Ox 97.5 F L 93 36 H 94/59 L 97 04/29/20 04:00 04/29/20 07:00 04/29/20 07:00 04/29/20 07:00 04/29/20 07:00 Oxygen Flow Rate (L/min) 2 Oxygen Delivery Method Nasal Cannula Weight: 177 lb 14.609 oz Body Mass Index (BMI) 24.2 Intake and Output for Last 24 Hours 04/27/20 04/28/20 04/29/20 23:59 23:59 23:59 Intake Total 1665 / 1665 1599.60 / 1599.60 Output Total 600 / 600 100 / 100 Balance 1065 / 1065 1499.60 / 1499.60 General: Alert, Oriented x3, Cooperative, No apparent distress HEENT: Atraumatic, PERRLA, EOMI, Normocephalic Oral: Moist Mucosa, No Gingival or Mucosal Lesions/ Ulcerations Neck: Supple, No JVD, Negative Carotid Bruits, Trachea Midline, Thyroid Normal Size and Texture Lungs: No wheeze, No rales, Diminished, Rhonchi, - - Diminished breath sounds bilateral, scattered rhonchi. Cardiovascular: Normal S1, Normal S2, No murmurs, PMI Normal, Irregular Rate, Tachycardic Abdomen: Bowel Sounds Present, Soft, Non Tender, Non-Distended, No Hepato-splenomegaly Extremities: No clubbing, No cyanosis, No edema Skin: No rashes, No breakdown Lymphatic: No Cervical, Supraclavicular, or Inguinal Adenopathy Neurological: Cranial nerves II-XII grossly intact, Neuro grossly intact Psych/Mental Status: Normal Affect, Appropriate, Alert and oriented to time, place, person, mood and affect Microbiology Past 72 Hours 04/28/20 21:45 Urine, Random Streptococcus pneumoniae Antigen (M - Final 04/28/20 21:45 Urine, Random Legionella Antigen - Final Laboratory Results 04/28/20 11:40: WBC 23.0 H, RBC 5.43, Hgb 17.4 H, Hct 53.6, MCV 98.7 H, MCH 32.0, MCHC 32.5, RDW Std Deviation 49.9 H, RDW Coeff of Julita 13.8, Plt Count 290, MPV 11.2, Immature Gran % (Auto) 1.300 H, Neut % (Auto) 74.1 H, Lymph % (Auto) 12.7 L, [place] % (Auto) 11.5 H, Eos % (Auto) 0.2, Baso % (Auto) 0.2, Absolute Neuts (auto) 17.1 H, Absolute Lymphs (auto) 2.92, Nucleated RBC % 0, Diff Path Review February04/28/20 11:40: Sodium 137, Potassium 4.4, Chloride 103, Carbon Dioxide 29.0, Anion Gap 5, BUN 13, Creatinine 1.30, Estim Creat Clear Calc 61.95, Est GFR (MDRD) Af Amer 72, Est GFR (MDRD) Non-Af 59 L, BUN/Creatinine Ratio 10.0, Glucose 119 H, Calcium 9.4, Magnesium 2.5, Troponin I 20.500 H* 04/28/20 11:40: PT 13.3, INR 1.1, APTT 26.9 04/28/20 11:40: Hemoglobin A1c 5.2 04/28/20 11:40: TSH 0.38 04/28/20 12:43: Activated Clotting Time 175 H 04/28/20 13:44: Activated Clotting Time 285 H 04/28/20 14:20: D-Dimer Quant (PE/DVT) 1.00 H* 04/28/20 14:20: Lactic Acid 1.3 04/28/20 15:20: COVID-19 (LONG) Negative 04/28/20 15:54: Activated Clotting Time 213 H 04/28/20 17:02: Activated Clotting Time 158 H 04/28/20 21:45: Urine Color Yellow, Urine Clarity Sl. Cloudy, Urine pH 5.0, Ur Specific [place] 1.015, Urine Protein 30 H, Urine Glucose (UA) Normal, Urine Ketones 50 H, Urine Occult Blood 10 H, Urine Nitrite Negative, Urine Bilirubin Negative, Urine Urobilinogen 1 H, Ur Leukocyte Esterase Negative, Urine RBC 0 SEEN, Urine WBC 0-5 SEEN, Ur Squamous Epith Cells 0 SEEN, Urine Bacteria RARE, Urine Mucus 0 SEEN 04/28/20 22:40: Troponin I 38.800 H* 04/29/20 04:05: WBC 16.5 H, RBC 4.33 L, Hgb 13.9, Hct 42.3, MCV 97.7 H, MCH 32.1 H, MCHC 32.9, RDW Std Deviation 48.4 H, RDW Coeff of Julita 13.4, Plt Count 227, MPV 11.4, Immature Gran % (Auto) 0.400, Neut % (Auto) 72.0 H, Lymph % (Auto) 15.4 L, [place] % (Auto) 12.0 H, Eos % (Auto) 0.1, Baso % (Auto) 0.1, Absolute Neuts (auto) 11.8 H, Absolute Lymphs (auto) 2.54, Nucleated RBC % 0, Differential Comment SCANNED, Diff Path Review February, Reactive Lymphocytes 2+ 04/29/20 04:05: Sodium 138, Potassium 4.0, Chloride 106, Carbon Dioxide 23.0, Anion Gap 9, BUN 16, Creatinine 1.06, Estim Creat Clear Calc 75.97, Est GFR (MDRD) Af Amer 91, Est GFR (MDRD) Non-Af 75, BUN/Creatinine Ratio 15.1, Glucose 115 H, Calcium 7.9 L, Total Bilirubin 1.20 H, AST 93 H, ALT 44, Alkaline Phosphatase 70, Total Protein 6.3 L, Albumin 2.6 L, Globulin 3.7, Albumin/Globulin Ratio 0.7 L, Triglycerides 61, Cholesterol 158, LDL Cholesterol 110, VLDL Cholesterol 12, HDL Cholesterol 36 L Current Medications Acetaminophen (Tylenol) 650 mg PO Q6H PRN PRN PRN Reason: Pain Score 1-10/Temp > 100.7 F Albuterol Sulfate (Ventolin Aerosols) 2.5 mg INHALATION Q4H PRN PRN PRN Reason: Shortness of breath, wheezing Aspirin (Ecotrin) 81 mg PO DAILY@0800 [facility] Atorvastatin Calcium (Lipitor) 80 mg PO QHS [facility] Last Admin: 04/28/20 21:58 Dose: 80 mg Documented by: Atropine Sulfate () 0.5 mg IV UD PRN PRN Reason: HR <50 bpm Colchicine (Colchicine) 0.6 mg PO BID [facility] Diazepam (Valium) 5 mg PO Q6H PRN PRN PRN Reason: BACK SPASMS/ANXIETY Last Admin: 04/28/20 14:47 Dose: 5 mg Documented by: Enoxaparin Sodium (Lovenox) 40 mg SC DAILY [facility] Fentanyl Citrate (Sublimaze (100mcg Ampule)) 25 mcg IV Q6H PRN PRN PRN Reason: Pain Score 6-10/10 Last Admin: 04/29/20 02:16 Dose: 25 mcg Documented by: Heparin Sodium (Beef Lung) (Heparin 500 Unit/5 Ml (100/Ml)) 500 unit IV UD PRN PRN Reason: HEPARIN FLUSH Ceftriaxone Sodium (Rocephin) 1 gm in 50 mls @ 100 mls/hr IV Q24 [facility] Last Infusion: 04/28/20 15:54 Dose: Infused Documented by: Azithromycin 500 mg/ Dextrose 255 mls @ 250 mls/hr IV Q24 [facility] Last Infusion: 04/28/20 16:56 Dose: Infused Documented by: Amiodarone HCl 360 mg/ (Dextrose) 200 mls @ 16.667 mls/hr CONT INF .Q12H [facility] Stop: 04/30/20 00:57 Last Admin: 04/29/20 07:27 Dose: 0.5 mg/min, 16.7 mls/hr Documented by: Sodium Chloride () 1,000 mls @ 60 mls/hr IV .[id number] [facility] Indomethacin (Indocin) 25 mg PO TIDCM [facility] Lisinopril (Zestril) 2.5 mg PO DAILY [facility] Metoclopramide HCl (Reglan) 5 mg IV Q6H PRN PRN PRN Reason: NAUSEA/VOMITING Metoprolol Tartrate (Lopressor (Beta Andres)) 12.5 mg PO BID [facility] Last Admin: 04/28/20 21:58 Dose: 12.5 mg Documented by: Nicotine (Nicoderm Cq (Pbkc)) 21 mg TRANSDERM. DAILY [facility] Last Admin: 04/28/20 21:58 Dose: 21 mg Documented by: Nitroglycerin (Nitrostat) 0.4 mg SUBLINGUAL Q5M PRN PRN Reason: CARDIAC/CHEST PAIN Ondansetron HCl (Zofran) 4 mg IV Q8H PRN PRN PRN Reason: NAUSEA/VOMITING Oxycodone HCl (Oxyir) 5 mg PO Q4H PRN PRN PRN Reason: Pain Score 4-5/10 Pantoprazole Sodium (Protonix) 40 mg PO BID [facility] Senna/Docusate Sodium (Senokot-S, Brittaney-Colace) 2 tablet PO BID PRN PRN Reason: Constipation Sodium Chloride () 500 ml IV BOLUS PRN PRN Reason: VASO-VAGAL PROTOCOL Sodium Chloride () 10 - 40 ml IV UD PRN PRN Reason: SALINE FLUSH Last Admin: 04/29/20 02:16 Dose: 20 ml Documented by: Ticagrelor (Brilinta) 90 mg PO BID [facility] Last Admin: 04/28/20 21:58 Dose: 90 mg Documented by: Zolpidem Tartrate (Ambien (Generic)) 5 mg PO QHS PRN PRN PRN Reason: INSOMNIA Last Admin: 04/28/20 22:09 Dose: 5 mg Documented by: Medical Necessity - Tobacco Use Smoking Status: Current every day smoker Tobacco Use: Cigarettes Assessment/Plan All Active Problems STEMI (ST elevation myocardial infarction) (Acute) Community acquired pneumonia (Acute) This is a 65 years old male patient presented to the emergency room because of chest pain or shortness of breath, found to have acute ST elevation CA, underwent emergent cardiac catheterization and also found to have community-acquired pneumonia. #[address] elevation CA/probable pericarditis: Status post cardiac catheterization, found to have occluded RCA, status post PTCA/CUBA to distal and proximal/mid RCA. Patient still having episodes of chest pain that got worse with taking a deep breath. Pericarditis is suspected. Currently, patient is on aspirin, statins, Brilinta, lisinopril and metoprolol. He is in A. fib with RVR, blood pressure is borderline. At this time, he is chest pain-free. 2D echocardiogram ordered, to be done probably tomorrow. Cardiology on the case. Plan to start him on colchicine and indomethacin for probable pericarditis, patient will need GI prophylaxis with PPI. #2 new onset A. fib with RVR: EKG reviewed. Patient currently on IV amiodarone drip as well as p.o. metoprolol. Heart rate has been around 100, blood pressure is borderline. Serum electrolytes including potassium, magnesium are normal. TSH was normal. Plan to continue same treatment. #2 suspected bilateral community-acquired pneumonia: He is on IV Rocephin and Zithromax. Denied any cough or sputum production. He has been afebrile, WBC is trending down. Pneumococcal and Legionella antigen were negative. Blood and urine cultures are pending. Plan to continue same treatment. #3 history of stroke: With no focal deficit. Continue aspirin and statins. #4 hyperlipidemia: He is on Lipitor. Lipid profile revealed total cholesterol of 151, LDL cholesterol of 110 and HDL cholesterol of 36. #5 tobacco abuse: NicoDerm patch. #6 DVT prophylaxis: Subcu Lovenox. This note was generated with [employer] dictation software. It may contain incorrect words, spelling, and punctuation that were not noted in checking the note before signing. Inpatient E&M: 97660 Subs Hosp L3
--- NOTE | 2020-04-29 10:00 | EKG12_ITS ---
Test Reason : CP Blood Pressure : / mmHG Vent. Rate : 094 BPM Atrial Rate : 094 BPM P-R Int : 156 ms QRS Dur : 094 ms QT Int : 344 ms P-R-T Axes : 056 -08 -34 degrees QTc Int : 430 ms Normal sinus rhythm Inferior infarct , age undetermined Anterior injury pattern Abnormal ECG No previous ECGs available Confirmed by ANGELINE COLLINS, JAZ ([id number]), newspaper editor ELLIOTT TRACEY ([id number]) on 05/01/2020 10:12:54 AM Referred By: Fito Qiu Confirmed By:JAZ MARCUS MD
[2020-04-29] MEDS: Ceftriaxone 1 GM/50 ML BAG IV (10:29)
[2020-04-29] MEDS: Indomethacin 25 MG Capsule PO ×2 (10:30→16:52)
[2020-04-29] MEDS: Lisinopril 5 MG Tablet PO (10:31)
[2020-04-29] MEDS: TICAGRELOR 90 MG TABLET PO ×2 (10:32→21:29)
[2020-04-29] MEDS: Enoxaparin 40 MG/0.4 ML Syringe SC (10:34)
[2020-04-29] MEDS: Metoprolol Tartrate 25 MG Tablet 12.5 MG PO ×2 (10:34→21:29)
[2020-04-29] MEDS: Aspirin E.C. 81 MG Tablet PO (10:36)
[2020-04-29] MEDS: Lisinopril 2.5 MG Tablet PO (10:38)
[2020-04-29] MEDS: Pantoprazole Sodium 40 MG Tablet PO ×2 (10:38→21:30)
[2020-04-29] MEDS: Ondansetron 4 MG/2 ML Vial IV (11:55)
--- NOTE | 2020-04-29 14:00 | EKG12_ITS ---
Test Reason : AM EKG Blood Pressure : / mmHG Vent. Rate : 093 BPM Atrial Rate : 234 BPM P-R Int : 000 ms QRS Dur : 100 ms QT Int : 358 ms P-R-T Axes : 000 -05 -41 degrees QTc Int : 445 ms Atrial fibrillation Inferior infarct , age undetermined Anterior injury pattern Abnormal ECG When compared with ECG of 28-APR-2020 22:49, MANUAL COMPARISON REQUIRED, DATA IS UNCONFIRMED Confirmed by ANGELINE COLLINS, JAZ ([id number]), book editor ELLIOTT TRACEY ([id number]) on 05/01/2020 10:12:35 AM Referred By: Fito Qui Confirmed By:JAZ MARCUS MD
[2020-04-29] MEDS: 0.9% Normal Saline 1,000 ML 60 ML IV (19:15)
[2020-04-29] MEDS: Atorvastatin Calcium 80 MG Tablet PO (21:29)
[2020-04-30] VITALS (17 sets, daily range): BP systolic 82–113; BP diastolic 55–71; PULSE 56–77; RESP 14–28; TEMP 36.3–36.4; O2SAT 90–98
[2020-04-30] MEDS: Zolpidem Tartrate 5 MG Tablet PO (00:18)
[2020-04-30 04:00] LABS: Absolute Lymphocyte Count 2.31 X10^3/uL (0.83-4.51); Absolute Neutrophil Count 5.1 X10^3/uL (2.0-7.7); Basophil# 0.02 X10^3/uL; Basophil% 0.2 % (0-1); Eosinophil# 0.15 X10^3/uL; Eosinophils% 1.7 % (0-5); Hemoglobin 11.8 g/dL (13.0-16.5); Lymphocyte # 2.31 X10^3/ul (4.0); Lymphocyte % 26.9 % (19-41); Mean Corp Hgb Conc 32.8 g/dL (32-36); Mean Corpuscular Hgb 31.8 pg (27.0-32.0); Mean Platelet Vol. 10.9 fl (6.2-12.0); Monocyte# 0.97 X10^3/uL; Monocyte% 11.3 % (0-10); NRBC Flagged by Analyzer 0 % (0-5); Neutrophil # 5.11 X10^3/uL (2.7-7.7); Neutrophil % 59.7 % (47-70); Platelet Count 230 K/mm3 (150-450); RBC Distribution Width CV 13.3 % (11.6-14.6); RBC Distribution Width SD 47.5 fl (35.1-43.9); Red Blood Count 3.71 M/mm3 (4.6-6.2); White Blood Count 8.6 K/mm3 (4.4-11.0)
[2020-04-30 04:13] LABS: Anion Gap 6 (5-15); BUN 16 mg/dL (7-18); BUN/Creat Ratio 16.8 RATIO (10-20); Calcium,Total 7.9 mg/dL (8.5-10.1); Chloride 110 mmol/L (98-107); Creatinine, Serum 0.95 mg/dL (0.70-1.30); EST Glomerular Filtration Rate 85 mL/min (>60); Est Glom Filt Rate - Afr Amer 103 mL/min (>60); Estimated Creatinine Clearance 84.77 ml/min; Glucose 95 mg/dL (74-106); Potassium 3.9 mmol/L (3.5-5.1); Sodium Level 142 mmol/L (136-145)
--- NOTE | 2020-04-30 07:13 | CRPHASE1_ITS ---
Patient Communication Former Patient:: Phase I PHII Cardiac Rehab Discussed with Patient:: Yes Guide to Cardiac Rehab Given to Patient:: Yes Cardiac Rehab Facility Choice List Given to Patient:: Yes Choice Program [facility] CR PHII:: Communication Given to CR Choice Program Other:: Communication Given to CR Steel Crane Operator:: Dr. Qiu Refer Phase II Cardiac Rehab:: Yes Sessions:: 36 sessions - 3 days/wk, 12 weeks Risk Factors/Lifestyle Smoking Status: Current every day smoker Hx Dyslipidemia: Yes Stress: Long-standing, Home/Family Caffeine: Yes Risk Factor for Sedentary Lifestyle: Moderate Risk Laboratory Values: Cardiac Rehab Phase I Labs Hemoglobin A1c 5.2 % (3.8-5.6) 04/28/20 11:40 Triglycerides 61 mg/dL (-199) 04/29/20 04:05 Cholesterol 158 mg/dL (200) 04/29/20 04:05 LDL Cholesterol 110 mg/dL (0-130) 04/29/20 04:05 HDL Cholesterol 36 mg/dL (40-) L 04/29/20 04:05 Phase I Education Given On:: [place], Nutrition, Antiplatelet medication, Smoking cessation Issues Affecting Care:: None Knowledge of Condition:: No Cardiac Rehabilitation Info Cardiac Rehabilitation Program Information: Cardiac Rehabilitation is important for patients like you who are recovering from a heart problem. Cardiac rehabilitation programs are recognized as integral to the continued care of the patient with coronary heart disease. The cardiac rehabilitation program is designed to optimize a patient's physical, psychological, and social functioning. Health health careers instructor work in cardiac rehabilitation programs and assist you with getting the treatments you need to get stronger and healthier - like exercise, healthy eating habits, and medications. Cardiac rehabilitation has been show to help people with heart problems live longer and have better life enjoyment than people who do not go to cardiac rehabilitation. Please contact the Cardiac Rehabilitation Program at [facility] at in two weeks if you have not heard from them.
--- NOTE | 2020-04-30 07:16 | CRPH1.INST_ITS ---
General Education CAD and cardiac anatomy and function:: Patient communicates acknowledgment Explanation of diagnoses and procedures:: Patient communicates acknowledgment Sign/Symptoms of [place]:: Patient communicates acknowledgment Antiplatelet therapy: Patient communicates acknowledgment Proper use of NTG-SL: Patient communicates acknowledgment Emergency procedures and activation of EMS: Patient communicates acknowledgment Compliance of all prescribed medications: Patient communicates acknowledgment Smoking Patient Nicotine/Smoking Risk Factors Are:: Cigarettes Recommendations Include:: Smoking cessation strategies/Smoking packet, Second- hand smoke recommendation, Participation in a smoking cessation program Nicotine/Smoking Response Code:: Patient communicates acknowledgment Dyslipidemia Patient Dyslipidemia Risk Factors Are:: HDL Recommendations Include:: Therapeutic Lifestyle Change dietary guidelines Dyslipidemia Response Code:: Patient communicates acknowledgment Stress Recommendations Include:: Identification of stressors, and assessment of coping skills, Stress management techniques Stress Response Code:: Patient communicates acknowledgment
--- NOTE | 2020-04-30 07:49 | PN.CARD_ITS ---
Subjectve: Patient seen and evaluated. Appears to be doing well. Has been walking the hallways. Objective: Vital Signs Temp Pulse Resp BP Pulse Ox 97.5 F L 67 16 106/71 96 04/30/20 04:00 04/30/20 07:00 04/30/20 07:00 04/30/20 07:00 04/30/20 07:16 Oxygen Flow Rate (L/min) 2 Oxygen Delivery Method Room Air Weight: 177 lb 0.499 oz Body Mass Index (BMI) 24.2 Intake and Output for Last 24 Hours 04/28/20 04/29/20 04/30/20 23:59 23:59 23:59 Intake Total 1665 / 1665 4448.00 / 4448.00 120 / 120 Output Total 600 / 600 2075 / 2075 450 / 450 Balance 1065 / 1065 2373.00 / 2373.00 -330 / -330 General: Awake, Alert, Oriented x 3 HEENT: PERRL, EOMI, Sclera Non Icteric Neck: Supple, Good ROM, No Lymph Node Enlargement Lungs: Clear to auscultation Cardiovascular: Regular Rhythm, Normal S1, Normal S2, No Murmurs, No Rubs, No Gallops Vascular: No Carotid Bruits, Normal Femoral Pulses, Normal Radial Pulses, Normal Dorsalis Pedal Pulse, Normal Posterior Tibial Pulses Abdomen: Bowel Sounds Present, Soft, Non Tender, No HSM, No Organomegaly Extremities: No Cyanosis, No Clubbing, No edema Musculoskeletal: No Erythema Skin: No Rashes Lymphatic: No Lymph Node Enlargement Neurological: No Focal Motor or Sensory Deficit 04/30/20 03:50: WBC 8.6, RBC 3.71 L, Hgb 11.8 L, Hct 36.0 L, MCV 97.0 H, MCH 31.8, MCHC 32.8, Plt Count 230, MPV 10.9, Immature Gran % (Auto) 0.200, Neut % (Auto) 59.7, Lymph % (Auto) 26.9, [place] % (Auto) 11.3 H, Eos % (Auto) 1.7, Baso % (Auto) 0.2, Absolute Neuts (auto) 5.1, Nucleated RBC % 0 04/30/20 03:50: Sodium 142, Potassium 3.9, Chloride 110 H, Carbon Dioxide 26.0, Anion Gap 6, BUN 16, Creatinine 0.95, Est GFR (MDRD) Af Amer 103, Est GFR (MDRD) Non-Af 85, BUN/Creatinine Ratio 16.8, Glucose 95, Calcium 7.9 L Rhythm: EKG: ECHO: Stress Test: Cardiac Cath: PCI: CT Surgery: Holter monitor: EPS: PPM: CXR: Chest CT Scan: Medical Necessity - Tobacco Use Smoking Status: Current every day smoker Tobacco Use: Cigarettes Assessment/Plan 1. Recent inferior wall myocardial infarction * Patient presented with chest discomfort was noted to have EKG changes with T wave inversions noted in the inferior leads and Q waves suggestive of a subacute inferior wall myocardial infarction. The patient was taken to the cardiac catheterization lab was noted to have a totally occluded right coronary artery for which he underwent angioplasty and stenting successfully. Mild disease was noted in the left anterior descending artery and moderate disease noted in the circumflex artery. * The plan will be to continue current medical therapy and evaluated the circumflex artery with stress testing at some point though it appears nonobstructive at this particular time * Will obtain echocardiogram to assess left ventricular function this morning. * 2. Post [place] pericarditis * His chest discomfort this morning is suggestive of a post [place] pericarditis. There is ST elevation noted in lead V2 and V1 in 1 and aVL. In addition due to the characterization of the chest discomfort in the late presentation I suspect that this is the etiology. * Will continue colchicine 0.6 mg twice daily for 3 days * Will continue Indocin 25 mg 3 times daily with GI protection for 1 week * * 3. Atrial fibrillation * Patient developed atrial fibrillation with a rapid ventricular response rate, he converted to normal sinus rhythm * * Will hold off on any systemic anticoagulation for now * The above is likely secondary to the pericarditis * 4. Risk factor modification * Patient to continue with aggressive risk factor modification including smoking cessation as well as high intensity statin use. * * * If patient remained stable by this afternoon may be able to go home. * Thank you for allowing me to participate in the care of your patient. Please don't hesitate to call if any issues arise.
[2020-04-30] MEDS: Indomethacin 25 MG Capsule PO ×2 (08:02→12:39)
[2020-04-30] MEDS: Aspirin E.C. 81 MG Tablet PO (08:02)
--- NOTE | 2020-04-30 08:14 | PN_ITS ---
Patient Problems: Active and Suspected Problems STEMI (ST elevation myocardial infarction) (Acute) Community acquired pneumonia (Acute) Reason for Visit: Subacute inferior wall NC Objective: The patient does not have chest pain. Mild left scapular pain probably positional because of sleep. No shortness of breath. Patient has chronic lower urinary tract symptoms including increased frequency, hesitancy, and increased straining for urination. Probably BPH and has appointment with [place] [facility] today but needs to be postponed. Echo scheduled for today. General: Alert, Oriented x3, Cooperative HEENT: Atraumatic, PERRLA, EOMI, Normocephalic Oral: No Gingival or Mucosal Lesions/ Ulcerations Neck: Supple, No JVD, Negative Carotid Bruits Lungs: Air entry equal in bilateral lung bases. No crepitation/rhonchi Cardiovascular: Regular rate, Regular Rhythm, Normal S1, Normal S2, No murmurs Abdomen: Bowel Sounds Present, Soft, Non Tender, Non-Distended : No renal angle tenderness. No suprapubic tenderness. Extremities: No edema, Capillary Refill Less than 3 Seconds. Mild muscular tenderness over the left scapular region Skin: No rashes, No breakdown Musculoskeletal: No Tenderness to Palpation of Joints or Extremities Neurological: Cranial nerves II-XII grossly intact, Deep Tendon Reflexes 2+/4 and Symmetrical, Neuro grossly intact Psych/Mental Status: Normal Affect, Appropriate Vitals/I&O's: Vital Signs Temp Pulse Resp BP Pulse Ox 97.5 F L 67 16 106/71 96 04/30/20 04:00 04/30/20 07:00 04/30/20 07:00 04/30/20 07:00 04/30/20 07:16 Oxygen Flow Rate (L/min) 2 Oxygen Delivery Method Room Air Weight: 177 lb 0.499 oz Body Mass Index (BMI) 24.2 Intake and Output for Last 24 Hours 04/28/20 04/29/20 04/30/20 23:59 23:59 23:59 Intake Total 1665 / 1665 4448.00 / 4448.00 120 / 120 Output Total 600 / 600 2075 / 2075 450 / 450 Balance 1065 / 1065 2373.00 / 2373.00 -330 / -330 Microbiology Past 72 Hours 04/28/20 21:45 Urine, Random Streptococcus pneumoniae Antigen (M - Final 04/28/20 21:45 Urine, Random Legionella Antigen - Final Laboratory Results 04/30/20 03:50: WBC 8.6, RBC 3.71 L, Hgb 11.8 L, Hct 36.0 L, MCV 97.0 H, MCH 31.8, MCHC 32.8, RDW Std Deviation 47.5 H, RDW Coeff of Julita 13.3, Plt Count 230, MPV 10.9, Immature Gran % (Auto) 0.200, Neut % (Auto) 59.7, Lymph % (Auto) 26.9, Roosevelt % (Auto) 11.3 H, Eos % (Auto) 1.7, Baso % (Auto) 0.2, Absolute Neuts (auto) 5.1, Absolute Lymphs (auto) 2.31, Nucleated RBC % 0 04/30/20 03:50: Sodium 142, Potassium 3.9, Chloride 110 H, Carbon Dioxide 26.0, Anion Gap 6, BUN 16, Creatinine 0.95, Estim Creat Clear Calc 84.77, Est GFR (MDRD) Af Amer 103, Est GFR (MDRD) Non-Af 85, BUN/Creatinine Ratio 16.8, Glucose 95, Calcium 7.9 L Current Medications Acetaminophen (Tylenol) 650 mg PO Q6H PRN PRN PRN Reason: Pain Score 1-10/Temp > 100.7 F Albuterol Sulfate (Ventolin Aerosols) 2.5 mg INHALATION Q4H PRN PRN PRN Reason: Shortness of breath, wheezing Aspirin (Ecotrin) 81 mg PO DAILY@0800 [facility] Last Admin: 04/30/20 08:02 Dose: 81 mg Documented by: Atorvastatin Calcium (Lipitor) 80 mg PO QHS [facility] Last Admin: 04/29/20 21:29 Dose: 80 mg Documented by: Atropine Sulfate () 0.5 mg IV UD PRN PRN Reason: HR <50 bpm Colchicine (Colchicine) 0.6 mg PO BID [facility] Last Admin: 04/29/20 21:30 Dose: 0.6 mg Documented by: Diazepam (Valium) 5 mg PO Q6H PRN PRN PRN Reason: BACK SPASMS/ANXIETY Last Admin: 04/28/20 14:47 Dose: 5 mg Documented by: Enoxaparin Sodium (Lovenox) 40 mg SC DAILY [facility] Last Admin: 04/29/20 10:34 Dose: 40 mg Documented by: Fentanyl Citrate (Sublimaze (100mcg Ampule)) 25 mcg IV Q6H PRN PRN PRN Reason: Pain Score 6-10/10 Last Admin: 04/29/20 20:26 Dose: 25 mcg Documented by: Heparin Sodium (Beef Lung) (Heparin 500 Unit/5 Ml (100/Ml)) 500 unit IV UD PRN PRN Reason: HEPARIN FLUSH Ceftriaxone Sodium (Rocephin) 1 gm in 50 mls @ 100 mls/hr IV Q24 [facility] Last Infusion: 04/29/20 10:59 Dose: Infused Documented by: Azithromycin 500 mg/ Dextrose 255 mls @ 250 mls/hr IV Q24 [facility] Last Infusion: 04/29/20 13:00 Dose: Infused Documented by: Sodium Chloride () 1,000 mls @ 60 mls/hr IV .[id number] [facility] Last Admin: 04/30/20 02:41 Dose: Not Given Documented by: Indomethacin (Indocin) 25 mg PO TIDCM [facility] Last Admin: 04/30/20 08:02 Dose: 25 mg Documented by: Lisinopril (Zestril) 2.5 mg PO DAILY [facility] Last Admin: 04/29/20 10:38 Dose: 2.5 mg Documented by: Metoclopramide HCl (Reglan) 5 mg IV Q6H PRN PRN PRN Reason: NAUSEA/VOMITING Metoprolol Tartrate (Lopressor (Beta Andres)) 12.5 mg PO BID [facility] Last Admin: 04/29/20 21:29 Dose: 12.5 mg Documented by: Nicotine (Nicoderm Cq (Pbkc)) 21 mg TRANSDERM. DAILY [facility] Last Admin: 04/29/20 10:32 Dose: 21 mg Documented by: Nitroglycerin (Nitrostat) 0.4 mg SUBLINGUAL Q5M PRN PRN Reason: CARDIAC/CHEST PAIN Ondansetron HCl (Zofran) 4 mg IV Q8H PRN PRN PRN Reason: NAUSEA/VOMITING Last Admin: 04/29/20 11:55 Dose: 4 mg Documented by: Oxycodone HCl (Oxyir) 5 mg PO Q4H PRN PRN PRN Reason: Pain Score 4-5/10 Pantoprazole Sodium (Protonix) 40 mg PO BID [facility] Last Admin: 04/29/20 21:30 Dose: 40 mg Documented by: Senna/Docusate Sodium (Senokot-S, Brittaney-Colace) 2 tablet PO BID PRN PRN Reason: Constipation Sodium Chloride () 500 ml IV BOLUS PRN PRN Reason: VASO-VAGAL PROTOCOL Sodium Chloride () 10 - 40 ml IV UD PRN PRN Reason: SALINE FLUSH Last Admin: 04/29/20 02:16 Dose: 20 ml Documented by: Sodium Chloride () 10 - 40 ml IV UD PRN PRN Reason: SALINE FLUSH Ticagrelor (Brilinta) 90 mg PO BID [facility] Last Admin: 04/29/20 21:29 Dose: 90 mg Documented by: Zolpidem Tartrate (Ambien (Generic)) 5 mg PO QHS PRN PRN PRN Reason: INSOMNIA Last Admin: 04/30/20 00:18 Dose: 5 mg Documented by: STROKE Vital Signs/Narrative: Vital Signs Pulse Resp BP Pulse Ox 04/30/20 07:16 96 04/30/20 07:00 67 16 106/71 95 04/30/20 06:00 63 22 H 98/67 95 04/30/20 05:00 58 L 15 108/55 L 96 Medical Necessity - Tobacco Use Smoking Status: Current every day smoker Tobacco Use: Cigarettes Assessment/Plan All Active Problems STEMI (ST elevation myocardial infarction) (Acute) Community acquired pneumonia (Acute) This is a 65 years old male patient presented to the emergency room because of chest pain or shortness of breath, found to have acute ST elevation NC, underwent emergent cardiac catheterization and also found to have community- acquired pneumonia. [address] elevation NC/probable pericarditis: Status post cardiac catheterization, found to have occluded RCA, status post PTCA/CUBA to distal and proximal/mid RCA. Continue aspirin, statin, Brilinta, lisinopril and metoprolol. 2D echo scheduled for today. Fasting profile total cholesterol 158, LDL 110, TG 61. 2. Post NC pericarditis: Patient had chest discomfort on 05/09 which is resolved. Patient does not have pericardial knock. ST elevation in lead V1 V2, 1 and aVL. On colchicine 0.6 mg twice daily for 3 days and Indocin 25 mg 3 times daily with GI prophylaxis, PPI. 3. New onset A. fib with RVR probably secondary to pericarditis: EKG reviewed. Converted to normal sinus rhythm. Patient currently on IV amiodarone drip as w ell as p.o. metoprolol. Heart rate and BP is controlled. Patient completed IV amiodarone drip. Serum electrolytes within normal limit. TSH normal. 4. Suspected bilateral community-acquired pneumonia: He is on IV Rocephin and Zithromax. Chest x-ray individually reviewed. Patchy infiltrate in left lingular lobe. Denied any cough or sputum production. He has been afebrile, WBC is trending down. Pneumococcal and Legionella antigen were negative. Culture negative for 48 hours. Urine culture pending. 5. History of stroke: With no focal deficit. Continue aspirin and statins. 6. Hyperlipidemia: He is on Lipitor. Lipid profile revealed total cholesterol of 151, LDL cholesterol of 110 and HDL cholesterol of 36. 7. Tobacco abuse: History of smoking a pack per day since age 24. NicoDerm patch. Head. DVT prophylaxis: Subcu Lovenox. Clinical Impression(s) from Imaging Studies Chest X-Ray 04/28/20 11:40 IMPRESSION: Patchy opacity in the left lower lung field which is likely infectious in etiology. Total time of the visit including total time spent in counseling or coordination of care, (more than 50% of the total time, spent in obtaining medical information from nurses and other ancillary care providers), discussion with sediment remediation consultant, review of labs and imaging is 30 minutes Inpatient E&M: [id number] [facility] L3
--- NOTE | 2020-04-30 09:48 | CASEMGMT ---
Addendum entered by Peewee Montalvo 04/30/20 11:41: SAMSON COLLINS Assessment PCP: none. List of area physicians given. Patient states he goes to [facility] and had appt today. SAMSON COLLINS offered to cancel appt for patient and he agreed. Called to [facility] and appt cancelled. Pt will call to reschedule tomorrow. No other dc needs identified @ this time. -Prescriptions have been ordered, call to [facility] pharmacy for cost. They will call adult protective caseworker with cost amount when processed. Pharmacist updated that Brilinta card has been sent down. Alma WOODS RN AC Original Note: SAMSON COLLINS Note: Intro role of CM to patient who states he does not have prescription coverage and will need assistance with prescriptions. Pt may need Brilinta on dc. Discussed Brilinta cost, savings card and [place] packet given to patient to finish completing and send to them. Reviewed form with patient including cardiology to complete prescription portion when he goes to office. Patient states he will call the phone number on dc and talk to them. No Pharmacy listed. Patient is agreeable to have prescriptions filled @[facility] and may need prescription assistance program if unable to afford. -Brilinta savings card sent to pharmacy for patient on dc. -VICENTE consult: Carroll ZHANG updated patient may need assistance with homegoing medications. Alma WOODS RN AC
--- NOTE | 2020-04-30 10:00 | EKG12_ITS ---
Test Reason : POST STEMI Blood Pressure : / mmHG Vent. Rate : 069 BPM Atrial Rate : 069 BPM P-R Int : 170 ms QRS Dur : 100 ms QT Int : 404 ms P-R-T Axes : 047 000 -39 degrees QTc Int : 432 ms Normal sinus rhythm Inferior infarct , recent Anterior injury pattern Abnormal ECG No previous ECGs available Confirmed by ANGELINE COLLINS, JAZ ([id number]), editor continuity and script ELLIOTT TRACEY ([id number]) on 05/01/2020 10:13:20 AM Referred By: Fito Qiu Confirmed By:JAZ MARCUS MD
[2020-04-30] MEDS: Ceftriaxone 1 GM/50 ML BAG IV (10:15)
[2020-04-30] MEDS: 0.9% Normal Saline 1,000 ML 60 ML IV (10:16)
[2020-04-30] MEDS: TICAGRELOR 90 MG TABLET PO (10:20)
[2020-04-30] MEDS: Enoxaparin 40 MG/0.4 ML Syringe SC (10:20)
[2020-04-30] MEDS: Pantoprazole Sodium 40 MG Tablet PO (10:21)
[2020-04-30] MEDS: Lisinopril 2.5 MG Tablet PO (10:22)
[2020-04-30] MEDS: Metoprolol Tartrate 25 MG Tablet 12.5 MG PO (10:22)
[2020-04-30] MEDS: fentaNYL 100 MCG/2 ML Ampul 25 MCG IV (10:31)
--- NOTE | 2020-04-30 11:36 | DCINST_ITS ---
- Discharge Diagnoses Current Active Problems: Current Active and Chronic Problems Tobacco abuse (Chronic) STEMI (ST elevation myocardial infarction) (Acute) Community acquired pneumonia (Acute) History of stroke (Chronic) Hyperlipidemia (Chronic) You will use the following diet at home:: Cardiac Your food should be the consistency of: Regular Discharge Activity: Return to Normal Activity, May Not Drive - FOR 5 DAYS Weight Bearing Status: Weight bearing as tolerated Call your doctor if you observe: Fever of 101 or Higher, Coldness, Increased Pain, Change in Color, Inability to urinate, Inability to have a bowel movement, Shortness of breath, Dizziness, Fainting spells, Swelling in the ankles, Chest pain, Prolonged hiccoughing, Increased palpitations (irregular heartbeat), Calf discomfort, Uncontrolled pain Allergies/Adverse Reactions: Allergies BEES Allergy (Uncoded 04/28/20 11:38) Anaphylaxis Medications to take at Discharge Aspirin E.C. [Ecotrin] 81 mg PO DAILY@0800 #30 tab 04/30/20 Atorvastatin Calcium [Lipitor] 80 mg PO QHS #30 tab 04/30/20 Colchicine 0.6 mg PO BID #6 tab 04/30/20 Indomethacin [Indocin] 25 mg PO TIDCM #21 cap 04/30/20 Levofloxacin [Levaquin] 500 mg PO DAILY #5 tab 04/30/20 Lisinopril [Zestril] 2.5 mg PO DAILY #30 tab 04/30/20 Metoprolol Tartrate [Lopressor (beta bakari)] 12.5 mg PO BID #60 tab 04/30/20 Nicotine [Nicoderm Cq] 21 mg TRANSDERM. DAILY #30 patch 04/30/20 Nitroglycerin (INPATIENT USE) [Nitrostat] 0.4 mg SUBLINGUAL Q5M PRN #30 tab.subl 04/30/20 Pantoprazole Sodium [Protonix] 40 mg PO DAILY #30 tab 04/30/20 Ticagrelor [Brilinta] 90 mg PO BID #60 tab 04/30/20 The following prescriptions were given: Ticagrelor [Brilinta] 90 mg PO BID #60 tab Transmission Status: Pending to [facility] Colchicine 0.6 mg PO BID #6 tab Transmission Status: Pending to [facility] Aspirin E.C. [Ecotrin] 81 mg PO DAILY@0800 #30 tab Transmission Status: Pending to [facility] Indomethacin [Indocin] 25 mg PO TIDCM #21 cap Transmission Status: Pending to [facility] Levofloxacin [Levaquin] 500 mg PO DAILY #5 tab Transmission Status: Pending to [facility] Atorvastatin Calcium [Lipitor] 80 mg PO QHS #30 tab Transmission Status: Pending to [facility] Metoprolol Tartrate [Lopressor (beta bakari)] 12.5 mg PO BID #60 tab Transmission Status: Pending to [facility] Nicotine [Nicoderm Cq] 21 mg TRANSDERM. DAILY #30 patch Transmission Status: Pending to [facility] Nitroglycerin (INPATIENT USE) [Nitrostat] 0.4 mg SUBLINGUAL Q5M PRN #30 tab.subl PRN Reason: Cardiac/Chest Pain Transmission Status: Pending to [facility] Pantoprazole Sodium [Protonix] 40 mg PO DAILY #30 tab Transmission Status: Pending to [facility] Lisinopril [Zestril] 2.5 mg PO DAILY #30 tab Transmission Status: Pending to [facility] Primary Care Physician: Care Physician,No Primary [Primary Care Provider] - Please follow up with your Primary Care Physician in: IN 2 WEEKS Test Results: Test results from this visit will be discussed in further detail at your follow- up appointment, if applicable. Please Follow Up With: Fito Qiu MD When: IN 2 WEEKS
--- NOTE | 2020-04-30 11:38 | PCM.DC.SUM ---
Discharge Date and Diagnosis - Problem List Patient Problems: Active and Suspected Problems (Last Updated 04/30/20 @ 13:27 by Dejah Deleon) STEMI (ST elevation myocardial infarction) (Acute) Community acquired pneumonia (Acute) Date of Admission: 04/28/20 Date of Discharge: 04/30/20 - Primary Discharge Diagnosis Acute Problems: Active Problems Recent Subacute Inferior wall MT. Community acquired pneumonia (Acute) - Secondary Discharge Diagnosis Chronic Problems: Chronic Problems Tobacco abuse (Chronic) History of stroke (Chronic) Hyperlipidemia (Chronic) Hospital Course and Treatment Summary of Care Provided: [] This is a 65 years old male patient presented to the emergency room because of chest pain or shortness of breath, found to have acute ST elevation MT, underwent emergent cardiac catheterization and also found to have community-acquired pneumonia. [address] elevation MT: Status post cardiac catheterization, found to have occluded RCA, status post PTCA/CUBA to distal and proximal/mid RCA. Continue aspirin, statin, Brilinta, lisinopril and metoprolol. Fasting profile total cholesterol 158, LDL 110, TG 61. Discussed with the carbonation equipment tender Dr. bell and formal echo report is still pending but shows EF 50 to 55%. Advised to discharge patient on above medications including short course of colchicine and Indocin as mentioned below. 2. Post MT pericarditis: Patient had chest discomfort on 05/09 which is resolved. Patient does not have pericardial knock. ST elevation in lead V1 V2, 1 and aVL. On colchicine 0.6 mg twice daily for 3 days and Indocin 25 mg 3 times daily for 1 week with GI prophylaxis, PPI. 3. New onset A. fib with RVR probably secondary to pericarditis: EKG reviewed. Converted to normal sinus rhythm. Continue p.o. metoprolol. Heart rate and BP is controlled. Patient completed IV amiodarone drip. Serum electrolytes within normal limit. TSH normal. 4. Suspected bilateral community-acquired pneumonia: He is on IV Rocephin and Zithromax. Chest x-ray individually reviewed. Patchy infiltrate in left lingular lobe. Denied any cough or sputum production. He has been afebrile, WBC is trending down. Pneumococcal and Legionella antigen were negative. Culture negative for 48 hours. Urine culture is negative for 48 hours. Patient is discharged on Levaquin for 5 more days. 5. History of stroke: With no focal deficit. Continue aspirin and statins. 6. Hyperlipidemia: He is on Lipitor. Lipid profile revealed total cholesterol of 151, LDL cholesterol of 110 and HDL cholesterol of 36. 7. Tobacco abuse: History of smoking a pack per day since age 24. NicoDerm patch. DVT prophylaxis: Subcu Lovenox. Discharge medication reconciliation done. Discharge follow-up instructions completed. Discharge process discussed with the patient and all questions were answered to patient's satisfaction. Patient was advised cardiac rehab and protocol as per STEMI Total time spent, exact 35 minutes on discharge meds reconciliation, examination, coordination of care with nurses and ancillary staff, review of imaging and blood test and discussion with the patient on follow-up instructions Clinical Impression(s) from Imaging Studies Chest X-Ray 04/28/20 11:40 IMPRESSION: Patchy opacity in the left lower lung field which is likely infectious in etiology. Patient Problems: Active and Suspected Problems (Last Updated 04/30/20 @ 13:27 by Dejah Deleon) STEMI (ST elevation myocardial infarction) (Acute) Community acquired pneumonia (Acute) Subjective: Please see progress note of the same date - Physical Exam Vitals/I&O's: Vital Signs Temp Pulse Resp BP Pulse Ox 97.6 F L 77 28 H 104/67 97 04/30/20 10:00 04/30/20 10:22 04/30/20 10:00 04/30/20 10:00 04/30/20 10:00 Oxygen Flow Rate (L/min) 2 Oxygen Delivery Method Room Air Weight: 177 lb 0.499 oz Body Mass Index (BMI) 24.2 Intake and Output for Last 24 Hours 04/28/20 04/29/20 04/30/20 23:59 23:59 23:59 Intake Total 1665 / 1665 4448.00 / 4448.00 1080 / 1080 Output Total 600 / 600 2075 / 2075 450 / 450 Balance 1065 / 1065 2373.00 / 2373.00 630 / 630 Microbiology Past 72 Hours 04/28/20 21:45 Urine, Random Urine Culture - Preliminary Culture exhibits no growth. 04/28/20 12:25 Blood Culture (Wb) - Anticubital Right Blood Culture - Preliminary No growth in 48 hours. 04/28/20 12:20 Blood Culture (Wb) - Anticubital Left Blood Culture - Preliminary No growth in 48 hours. 04/28/20 21:45 Urine, Random Streptococcus pneumoniae Antigen (M - Final 04/28/20 21:45 Urine, Random Legionella Antigen - Final Laboratory Results 04/30/20 03:50: WBC 8.6, RBC 3.71 L, Hgb 11.8 L, Hct 36.0 L, MCV 97.0 H, MCH 31.8, MCHC 32.8, RDW Std Deviation 47.5 H, RDW Coeff of Julita 13.3, Plt Count 230, MPV 10.9, Immature Gran % (Auto) 0.200, Neut % (Auto) 59.7, Lymph % (Auto) 26.9, Morrow % (Auto) 11.3 H, Eos % (Auto) 1.7, Baso % (Auto) 0.2, Absolute Neuts (auto) 5.1, Absolute Lymphs (auto) 2.31, Nucleated RBC % 0 04/30/20 03:50: Sodium 142, Potassium 3.9, Chloride 110 H, Carbon Dioxide 26.0, Anion Gap 6, BUN 16, Creatinine 0.95, Estim Creat Clear Calc 84.77, Est GFR (MDRD) Af Amer 103, Est GFR (MDRD) Non-Af 85, BUN/Creatinine Ratio 16.8, Glucose 95, Calcium 7.9 L Current Medications Acetaminophen (Tylenol) 650 mg PO Q6H PRN PRN PRN Reason: Pain Score 1-10/Temp > 100.7 F Albuterol Sulfate (Ventolin Aerosols) 2.5 mg INHALATION Q4H PRN PRN PRN Reason: Shortness of breath, wheezing Aspirin (Ecotrin) 81 mg PO DAILY@0800 [facility] Last Admin: 04/30/20 08:02 Dose: 81 mg Documented by: Atorvastatin Calcium (Lipitor) 80 mg PO QHS [facility] Last Admin: 04/29/20 21:29 Dose: 80 mg Documented by: Atropine Sulfate () 0.5 mg IV UD PRN PRN Reason: HR <50 bpm Colchicine (Colchicine) 0.6 mg PO BID [facility] Last Admin: 04/30/20 10:20 Dose: 0.6 mg Documented by: Diazepam (Valium) 5 mg PO Q6H PRN PRN PRN Reason: BACK SPASMS/ANXIETY Last Admin: 04/28/20 14:47 Dose: 5 mg Documented by: Enoxaparin Sodium (Lovenox) 40 mg SC DAILY [facility] Last Admin: 04/30/20 10:20 Dose: 40 mg Documented by: Fentanyl Citrate (Sublimaze (100mcg Ampule)) 25 mcg IV Q6H PRN PRN PRN Reason: Pain Score 6-10/10 Last Admin: 04/30/20 10:31 Dose: 25 mcg Documented by: Heparin Sodium (Beef Lung) (Heparin 500 Unit/5 Ml (100/Ml)) 500 unit IV UD PRN PRN Reason: HEPARIN FLUSH Ceftriaxone Sodium (Rocephin) 1 gm in 50 mls @ 100 mls/hr IV Q24 [facility] Last Infusion: 04/30/20 10:50 Dose: Infused Documented by: Azithromycin 500 mg/ Dextrose 255 mls @ 250 mls/hr IV Q24 [facility] Last Infusion: 04/29/20 13:00 Dose: Infused Documented by: Sodium Chloride () 1,000 mls @ 60 mls/hr IV .[id number] [facility] Last Infusion: 04/30/20 10:50 Dose: 60 mls/hr Documented by: Indomethacin (Indocin) 25 mg PO TIDCM [facility] Last Admin: 04/30/20 08:02 Dose: 25 mg Documented by: Lisinopril (Zestril) 2.5 mg PO DAILY [facility] Last Admin: 04/30/20 10:22 Dose: 2.5 mg Documented by: Metoclopramide HCl (Reglan) 5 mg IV Q6H PRN PRN PRN Reason: NAUSEA/VOMITING Metoprolol Tartrate (Lopressor (Beta Andres)) 12.5 mg PO BID [facility] Last Admin: 04/30/20 10:22 Dose: 12.5 mg Documented by: Nicotine (Nicoderm Cq (Pbkc)) 21 mg TRANSDERM. DAILY [facility] Last Admin: 04/30/20 10:21 Dose: 21 mg Documented by: Nitroglycerin (Nitrostat) 0.4 mg SUBLINGUAL Q5M PRN PRN Reason: CARDIAC/CHEST PAIN Ondansetron HCl (Zofran) 4 mg IV Q8H PRN PRN PRN Reason: NAUSEA/VOMITING Last Admin: 04/29/20 11:55 Dose: 4 mg Documented by: Oxycodone HCl (Oxyir) 5 mg PO Q4H PRN PRN PRN Reason: Pain Score 4-5/10 Pantoprazole Sodium (Protonix) 40 mg PO BID [facility] Last Admin: 04/30/20 10:21 Dose: 40 mg Documented by: Senna/Docusate Sodium (Senokot-S, Brittaney-Colace) 2 tablet PO BID PRN PRN Reason: Constipation Sodium Chloride () 500 ml IV BOLUS PRN PRN Reason: VASO-VAGAL PROTOCOL Sodium Chloride () 10 - 40 ml IV UD PRN PRN Reason: SALINE FLUSH Last Admin: 04/29/20 02:16 Dose: 20 ml Documented by: Sodium Chloride () 10 - 40 ml IV UD PRN PRN Reason: SALINE FLUSH Ticagrelor (Brilinta) 90 mg PO BID [facility] Last Admin: 04/30/20 10:20 Dose: 90 mg Documented by: Zolpidem Tartrate (Ambien (Generic)) 5 mg PO QHS PRN PRN PRN Reason: INSOMNIA Last Admin: 04/30/20 00:18 Dose: 5 mg Documented by: Discharge Activity: Return to Normal Activity, May Not Drive - FOR 5 DAYS Weight Bearing Status: Weight bearing as tolerated Call your doctor if you observe: Fever of 101 or Higher, Coldness, Increased Pain, Change in Color, Inability to urinate, Inability to have a bowel movement, Shortness of breath, Dizziness, Fainting spells, Swelling in the ankles, Chest pain, Prolonged hiccoughing, Increased palpitations (irregular heartbeat), Calf discomfort, Uncontrolled pain Home Medications: Medications to take at Discharge Aspirin E.C. [Ecotrin] 81 mg PO DAILY@0800 #30 tab 04/30/20 Atorvastatin Calcium [Lipitor] 80 mg PO QHS #30 tab 04/30/20 Colchicine 0.6 mg PO BID #6 tab 04/30/20 Indomethacin [Indocin] 25 mg PO TIDCM #21 cap 04/30/20 Levofloxacin [Levaquin] 500 mg PO DAILY #5 tab 04/30/20 Lisinopril [Zestril] 2.5 mg PO DAILY #30 tab 04/30/20 Metoprolol Tartrate [Lopressor (beta andres)] 12.5 mg PO BID #60 tab 04/30/20 Nicotine [Nicoderm Cq] 21 mg TRANSDERM. DAILY #30 patch 04/30/20 Nitroglycerin (INPATIENT USE) [Nitrostat] 0.4 mg SUBLINGUAL Q5M PRN #30 tab.subl 04/30/20 Pantoprazole Sodium [Protonix] 40 mg PO DAILY #30 tab 04/30/20 Ticagrelor [Brilinta] 90 mg PO BID #60 tab 04/30/20 Following Prescrptions Were Given to Patient: Ticagrelor [Brilinta] 90 mg PO BID #60 tab Transmission Status: Received by [facility] Colchicine 0.6 mg PO BID #6 tab Transmission Status: Received by [facility] Aspirin E.C. [Ecotrin] 81 mg PO DAILY@0800 #30 tab Transmission Status: Received by [facility] Indomethacin [Indocin] 25 mg PO TIDCM #21 cap Transmission Status: Received by [facility] Levofloxacin [Levaquin] 500 mg PO DAILY #5 tab Transmission Status: Received by [facility] Atorvastatin Calcium [Lipitor] 80 mg PO QHS #30 tab Transmission Status: Received by [facility] Metoprolol Tartrate [Lopressor (beta andres)] 12.5 mg PO BID #60 tab Transmission Status: Received by [facility] Nicotine [Nicoderm Cq] 21 mg TRANSDERM. DAILY #30 patch Transmission Status: Received by [facility] Nitroglycerin (INPATIENT USE) [Nitrostat] 0.4 mg SUBLINGUAL Q5M PRN #30 tab.subl PRN Reason: Cardiac/Chest Pain Transmission Status: Received by [facility] Pantoprazole Sodium [Protonix] 40 mg PO DAILY #30 tab Transmission Status: Received by [facility] Lisinopril [Zestril] 2.5 mg PO DAILY #30 tab Transmission Status: Received by [facility] Other Amb Orders: Phase II, Outpatient Cardiac Rehab Location: None Selected Primary Care Physician: Care Physician,No Primary [Primary Care Provider] - Please follow up with your Primary Care Physician in: IN 2 WEEKS Please Follow Up With: Fito Qiu MD When: IN 2 WEEKS Medical Necessity - Tobacco Use Smoking Status: Current every day smoker Tobacco Use: Cigarettes Meaningful Use Info Meaningful Use Diagnoses (Choose all that apply): AMI - AMI/Post PCI/Angioplasty Aspirin given w/in 24hrs of arrival?: Yes ASA at discharge?: Yes Antiplatelet Therapy at Discharge:: Yes Statins at discharge?: Yes Arsenio/ARB at discharge?: Yes Beta Andres at discharge?: Yes Done w/ Acute MT measure.: Yes Documented LVEF (%): 50 Please, delete the charge of progress note of the same date 04/30/2020 Inpatient E&M: [id number] Disch Hosp
--- NOTE | 2020-04-30 12:33 | CASEMGMT ---
SAMSON CM Note: Call from dequan Dunham. Cost of Prescription medication is $159.14, OTC asa is $3.00 and Nicoderm patches are 39.54/box and 2 boxes were ordered. Patient cannot afford the OTC nicoderm patches, can afford the asa and states he cannot afford the presciptions. Call to [facility] to update that pt will need hospital assistance for his prescriptions. Pharmacist will fill medications, and has free Brilinta card. Alma WOODS RN ACM
--- NOTE | 2020-04-30 12:56 | CASEMGMT ---
SW completed [facility] prescription assistance form and tubed to [facility] retail pharmacy as patient does not have prescription coverage. SW also called [facility] and notified Elisabeth this form was sent. Maritza DRUMMOND
[2020-04-30 13:09] LABS: Pathologist Review Reviewed
[2020-05-01 12:42] LABS: Pathologist Review Reviewed
== END 2020-04-30 14:10 | disposition home or self-care (01) | DRG 246 ==
LOC: ED 11:52 → ICU 12:24
PROVIDERS: Hospitalist; Admitting Provider Internal Medicine Cardiovascular Disease; Emergency Provider Emergency Medicine; Referring Provider Internal Medicine Cardiovascular Disease; Visit Provider Internal Medicine
DX: I21.19 ST elevation (STEMI) myocardial infarction involving other coronary artery of inferior wall (principal); J18.9 Pneumonia, unspecified organism; I24.1 Dressler's syndrome; I48.91 Unspecified atrial fibrillation; I10 Essential (primary) hypertension; I25.110 Atherosclerotic heart disease of native coronary artery with unstable angina pectoris; E78.5 Hyperlipidemia, unspecified; F17.210 Nicotine dependence, cigarettes, uncomplicated; Z79.82 Long term (current) use of aspirin; Z79.899 Other long term (current) drug therapy; Z86.73 Personal history of transient ischemic attack (TIA), and cerebral infarction without residual deficits
CPT/HCPCS: 71045; 80048; 80053; 80061; 81001; 83036; 83605; 83735; 84443; 84484; 85025; 85347; 85379; 85610; 85730; 87040; 87086; 87449; 87635; 92941; 93005; 93306; 93458; 97802; 99152; 99153; 99285; G2023; J7030; J7040; J7050; Q9967; A4216; C1725; C1769; C1874; C1887; C1894; C8929; C9606; J2405; U0003

== ENCOUNTER 2021-07-31 12:57 | Emergency (ER) | payer MEDICARE, SELFPAY ==
[2021-07-31 12:57] VITALS: BP 151/76; PULSE 77; RESP 16; TEMP 37.4; O2SAT 100; BMI 26.6
--- NOTE | 2021-07-31 13:30 | RAD_ITS ---
STUDY: X-RAY CHEST REASON FOR EXAM: Male, 66 years old. Cough, fever and chills. Body aches. TECHNIQUE: Single AP portable view of the chest. COMPARISON: Comparison is made with prior study dated 04/28/2020. FINDINGS: There is hyperinflation of the lungs consistent with chronic obstructive lung disease (COPD). There is no demonstrated pleural abnormality. Normal size heart. Calcified bilateral hilar lymph nodes. Normal visualized pulmonary arteries. Normal visualized aortic arch and descending thoracic aorta. Normal visualized thoracic spine. Normal visualized ribs, clavicles, and shoulders. There is no demonstrated abnormality of the visualized soft tissue structures of the upper abdomen. RAD/Chest 1 View IMPRESSION: Hyperinflation. The lungs are clear. Electronically Signed: Nicolás Delarosa MD at 14:00 EDT , Service support ,
[2021-07-31 13:40] VITALS: BP 129/99; PULSE 73; RESP 13; O2SAT 99
--- NOTE | 2021-07-31 14:08 | EKG12_ITS ---
Test Reason : SOBB Blood Pressure : / mmHG Vent. Rate : 072 BPM Atrial Rate : 072 BPM P-R Int : 162 ms QRS Dur : 086 ms QT Int : 366 ms P-R-T Axes : -13 020 007 degrees QTc Int : 400 ms Poor data quality, interpretation may be adversely affected Normal sinus rhythm T wave abnormality, consider inferior ischemia Abnormal ECG Confirmed by JAZ MARCUS MD ([id number]), continuity editor ELLIOTT TRACEY ([id number]) on 08/06/2021 6:35:39 AM Referred By: Confirmed By:JAZ MARCUS MD
--- NOTE | 2021-07-31 14:10 | EDS_ITS ---
HPI History of Present Illness Chief Complaint: Shortness of Breath Informant: patient Onset/Context/Timing Onset: Days (3 days ago) Current Severity: Moderate Maximum Severity: Moderate Narrative Narrative: Patient presents secondary to cough and fever. Symptoms started 3 days ago. He reports fever up to 105 at home with chills. Last dose of Tylenol was 6 hours ago. Patient reports a nonproductive cough, nausea, decreased p.o. intake. He states he had chest pain earlier in the day but denies pain currently. He did not get the Covid vaccine. [facility] Medical History Arteriosclerosis of coronary artery in patient with history of myocardial infarction Community acquired pneumonia History of stroke Hyperlipidemia STEMI (ST elevation myocardial infarction) Tobacco abuse Home Medications aspirin 81 mg PO DAILY@0800 #30 tab 04/30/20 [Rx Last Taken Unknown] atorvastatin 80 mg PO QHS #30 tab 04/30/20 [Rx Last Taken Unknown] colchicine 0.6 mg PO BID #6 tab 04/30/20 [Rx Last Taken Unknown] indomethacin 25 mg PO TIDCM #21 cap 04/30/20 [Rx Last Taken Unknown] levofloxacin 500 mg PO DAILY #5 tab 04/30/20 [Rx Last Taken Unknown] lisinopril 2.5 mg PO DAILY #30 tab 04/30/20 [Rx Last Taken Unknown] metoprolol tartrate 12.5 mg PO BID #60 tab 04/30/20 [Rx Last Taken Unknown] nicotine 21 mg TRANSDERM. DAILY #30 patch 04/30/20 [Rx Last Taken Unknown] nitroglycerin 0.4 mg SUBLINGUAL Q5M PRN #30 tab.subl 04/30/20 [Rx Last Taken Unknown] pantoprazole 40 mg PO DAILY #30 tab 04/30/20 [Rx Last Taken Unknown] Brilinta 90 mg tablet 90 mg PO BID #180 tab NS 05/08/20 [Rx Last Taken Unknown] dexamethasone [Decadron] 6 mg PO DAILY #10 tab 07/31/21 [Rx Last Taken Unknown] ondansetron 4 mg PO Q8H PRN #10 tab 07/31/21 [Rx Last Taken Unknown] Allergy/AdvReac Type Severity Reaction Status Date / Time BEES Allergy Anaphylaxis Uncoded 04/28/20 11:38 Surgical History Stented coronary artery (04/28/20) Social History Smoking Status: Current every day smoker tobacco type: cigarettes ROS ROS ED Constitutional Constitutional ED: Reports chills and fever(s) Eyes Eyes: Denies change in vision ENT ENT ED: Denies sore throat Cardiovascular Cardiovascular: Reports chest pain Respiratory/Chest Respiratory/Chest: Reports cough and dyspnea Gastrointestinal Gastrointestinal: Reports nausea; Denies abdominal pain, diarrhea or vomiting Genitourinary Genitourinary ED: Denies dysuria Musculoskeletal Musculoskeletal: Reports myalgias; Denies back pain Integumentary Denies rash Neurologic Neurologic: Denies headache(s) or weakness Allergic/Immunologic Allergic/Immunologic ED: Denies urticaria EXAM Physical Exam Narrative Exam Narrative: Frequent moist cough during exam. Const Vital Signs: 07/31/21 12:57 07/31/21 13:40 07/31/21 14:25 Temperature 99.3 F H Temperature Source Temporal Pulse Rate 77 73 Respiratory Rate 16 13 Respiratory Effort Normal Non-Labored Respiratory Depth Normal Respiratory Pattern Normal Blood Pressure 151/76 H 129/99 H Blood Pressure Mean 101 109 Pulse Ox 100 99 Oxygen Delivery Method Room Air Room Air Room Air 07/31/21 15:13 Temperature Temperature Source Pulse Rate 72 Respiratory Rate 20 H Respiratory Effort Respiratory Depth Respiratory Pattern Blood Pressure 123/91 H Blood Pressure Mean 101 Pulse Ox 98 Oxygen Delivery Method Room Air Positive well nourished and well developed General Appearance ED: well developed HEENT Reports normocephalic and head/scalp atraumatic Eyes PERRL and EOMs intact bilaterally Neck supple Chest Wall inspection of chest normal and palpation of chest normal Resp normal respiratory effort and clear to auscultation bilaterally Cardio regular rate and regular rhythm GI non-tender Auscultation: hypoactive bowel sounds Palpation: soft Back/Spine Negative for no CVA tenderness Extremity normal to inspection Neuro oriented x3 Sensorium / Orientation: alert Psych mental status grossly normal Skin no rashes or lesions noted MDM MDM MDM Narrative Medical decision making narrative: Chest x-ray, EKG, Covid swab, labs obtained. Lab Data Attestation: I reviewed the patient's lab results. Labs: Laboratory Results - last 24 hr 07/31/21 07/31/21 07/31/21 14:25 14:25 14:25 WBC 3.6 L RBC 5.10 Hgb 16.3 Hct 47.0 MCV 92.2 MCH 32.0 MCHC 34.7 RDW Std Deviation 44.1 H RDW Coeff of Julita 13.0 Plt Count 92 L MPV 11.1 Immature Gran % (Auto) 0.600 Neut % (Auto) 64.7 Lymph % (Auto) 26.3 Waldo % (Auto) 8.1 Eos % (Auto) 0.0 Baso % (Auto) 0.3 Absolute Neuts (auto) 2.3 Absolute Lymphs (auto) 0.94 Nucleated RBC % 0 Differential Comment SCANNED D-Dimer Quant (PE/DVT) 0.82 H* Sodium 136 Potassium 3.7 Chloride 103 Carbon Dioxide 24.0 Anion Gap 9 BUN 18 Creatinine 1.27 Estim Creat Clear Calc 58.76 Est GFR (MDRD) Af Amer 73 Est GFR (MDRD) Non-Af 61 BUN/Creatinine Ratio 14.2 Glucose 92 Lactic Acid Calcium 8.2 L Total Bilirubin 0.60 AST 33 ALT 38 Alkaline Phosphatase 86 Troponin I High Sens 16 Total Protein 7.1 Albumin 3.3 Globulin 3.8 Albumin/Globulin Ratio 0.9 07/31/21 14:25 WBC RBC Hgb Hct MCV MCH MCHC RDW Std Deviation RDW Coeff of Julita Plt Count MPV Immature Gran % (Auto) Neut % (Auto) Lymph % (Auto) Waldo % (Auto) Eos % (Auto) Baso % (Auto) Absolute Neuts (auto) Absolute Lymphs (auto) Nucleated RBC % Differential Comment D-Dimer Quant (PE/DVT) Sodium Potassium Chloride Carbon Dioxide Anion Gap BUN Creatinine Estim Creat Clear Calc Est GFR (MDRD) Af Amer Est GFR (MDRD) Non-Af BUN/Creatinine Ratio Glucose Lactic Acid 1.3 Calcium Total Bilirubin AST ALT Alkaline Phosphatase Troponin I High Sens Total Protein Albumin Globulin Albumin/Globulin Ratio Radiography Chest X-Ray - ED: 1 View, Read by ED Physician and Chronic Changes Diagnostic Testing: Clinical Impression(s) from Imaging Studies Chest X-Ray 07/31/21 13:30 IMPRESSION: Hyperinflation. The lungs are clear. Electronically Signed: Nicolás Delarosa MD at 14:00 EDT , Service support , Chest CTA 07/31/21 15:06 IMPRESSION: No evidence of pulmonary embolism. Findings suggestive of a mild degree of scarring with bilateral patchy infiltrates. There is evidence of a nodular infiltrate in the peripheral lateral aspect of the left upper lobe as described. This measures 1.3 cm x 1.6 cm. Radiographic follow-up is recommended. Electronically Signed: Nicolás Delarosa MD at 15:43 EDT , Service support , EKG Initial EKG: Attestation: I personally reviewed and interpreted this EKG as follows: Interpretation: Sinus Rhythm (Sinus at [address] change.) Treatment and Re-Evaluation Comments:: Patient's lab work is reviewed. D-dimer is elevated at 0.82. He is sent for CTA of the chest. He was given Tylenol as well as Toradol to help with fever and body aches. CTA reveals patchy infiltrates but no evidence of PE. Patient's O2 sat remains in the high 90s. We discussed treatment at home with Decadron and Zofran as well as referral for monoclonal antibody treatment. He is in agreement with this plan. Discharge Plan Triage Chief Complaint: Shortness of Breath ED Provider: Bety Doty Dx/Rx/DC Orders Clinical Impression: COVID-19 Instructions: Coronavirus Disease 2019 (COVID-19): Overview, Coronavirus Disease 2019 (COVID-19): Caring for Yourself or Others Prescriptions: New dexamethasone [Decadron] 6 mg tablet 6 mg PO DAILY Qty: 10 RF: 0 ondansetron 4 mg tablet,disintegrating 4 mg PO Q8H PRN (Reason: nausea and vomiting) Qty: 10 RF: 0 No Action atorvastatin 80 MG tablet 80 mg PO QHS Qty: 30 RF: 1 aspirin 81 MG tablet 81 mg PO DAILY@0800 Qty: 30 RF: 1 pantoprazole 40 MG tablet 40 mg PO DAILY Qty: 30 RF: 0 indomethacin 25 MG capsule 25 mg PO TIDCM Qty: 21 RF: 0 nicotine 21 MG patch 21 mg TRANSDERM. DAILY Qty: 30 RF: 0 nitroglycerin 0.4 MG tablet, sublingual 0.4 mg sublingual Q5M PRN (Reason: Cardiac/Chest Pain) Qty: 30 RF: 0 lisinopril 2.5 MG tablet 2.5 mg PO DAILY Qty: 30 RF: 1 metoprolol tartrate 25 MG tablet 12.5 mg PO BID Qty: 60 RF: 1 colchicine 0.6 MG tablet 0.6 mg PO BID Qty: 6 RF: 0 levofloxacin 500 MG tablet 500 mg PO DAILY Qty: 5 RF: 0 Brilinta 90 mg tablet 90 mg PO BID Qty: 180 RF: 3 Other Ambulatory Orders: COVID Outpatient Monoclonal Antibody Referral (Routine) Timeframe: 1 Day Facility: [facility] - Location: [facility] Ordered By: Dr. Bety Doty Primary Care Provider: Care Physician,No Primary Referrals: Leona Morelos MD [STAFF PHYSICIAN] - 1-2 Weeks Care Physician,No Primary [Primary Care Provider] - Disposition Disposition: Home, Self Care
[2021-07-31 14:25] VITALS: O2SAT 97
[2021-07-31 14:34] LABS: Absolute Lymphocyte Count 0.94 X10^3/uL (0.83-4.51); Absolute Neutrophil Count 2.3 X10^3/uL (2.0-7.7); Basophil# 0.01 X10^3/uL; Basophil% 0.3 % (0-1); Hemoglobin 16.3 g/dL (13.0-16.5); Lymphocyte # 0.94 X10^3/ul (0.83-4.51); Lymphocyte % 26.3 % (19-41); Mean Corp Hgb Conc 34.7 g/dL (32-36); Mean Corpuscular Volume 92.2 fL (80-94); Mean Platelet Vol. 11.1 fl (6.2-12.0); Monocyte# 0.29 X10^3/uL; Monocyte% 8.1 % (0-10); NRBC Flagged by Analyzer 0 % (0-5); Neutrophil # 2.31 X10^3/uL (2.7-7.7); Neutrophil % 64.7 % (47-70); POSITIVE COUNT YES; Platelet Count 92 K/mm3 (150-450); RBC Distribution Width SD 44.1 fl (35.1-43.9); White Blood Count 3.6 K/mm3 (4.4-11.0)
[2021-07-31 14:41] LABS: Differential Indicated SCAN CRITERIA MET
[2021-07-31 14:48] LABS: ALB/GLOB Ratio 0.9 RATIO (0.9-2.4); AST(SGOT) 33 U/L (15-37); Alanine Aminotransfer ALT/SGPT 38 U/L (16-61); Albumin, Serum 3.3 g/dL (3.2-5.0); Alkaline Phosphatase 86 U/L (45-117); Anion Gap 9 (5-15); BUN 18 mg/dL (7-18); BUN/Creat Ratio 14.2 RATIO (10-20); Calcium,Total 8.2 mg/dL (8.5-10.1); Chloride 103 mmol/L (98-107); Creatinine, Serum 1.27 mg/dL (0.70-1.30); EST Glomerular Filtration Rate 61 mL/min (>60); Est Glom Filt Rate - Afr Amer 73 mL/min (>60); Estimated Creatinine Clearance 58.76 ml/min; Globulin 3.8 g/dL (2.2-4.2); Glucose 92 mg/dL (74-106); Potassium 3.7 mmol/L (3.5-5.1); Protein, Total 7.1 g/dL (6.4-8.2); Sodium Level 136 mmol/L (136-145); Troponin-I HS 16 pg/mL (3.0-78.0)
[2021-07-31 14:58] LABS: Lactic Acid 1.3 mmol/L (0.4-1.9)
[2021-07-31 15:05] LABS: D-Dimer Quantitative (DVT/PE) 0.82 FEU/ug/m (0.27-0.49)
--- NOTE | 2021-07-31 15:06 | CT_ITS ---
STUDY: CTA CHEST REASON FOR EXAM: Male, 66 years old. Pulmonary embolism RADIATION DOSAGE (If Supplied By Facility): CTDIvol = ( 12.96 ) mGy, DLP = ( 338.67 ) mGycm TECHNIQUE: The examination was performed with the intravenous administration of IV 100mL Isovue-370. Post-processing of the angiographic images was performed, with multiplanar reformation and 3D reconstruction. Individualized dose optimization techniques were used for this CT. COMPARISON: Comparison is made with prior chest radiograph done earlier in the day. FINDINGS: Normal enhancement of the main pulmonary artery and right and left pulmonary arteries. Normal enhancement of the bilateral peripheral pulmonary arteries. There is no demonstrated pulmonary embolism. Normal thoracic aorta and visualized great vessels. There is no demonstrated aortic dissection. There are calcifications of the coronary arteries. Normal mediastinum. Normal hilar regions. Normal visualized trachea and bronchi. The lungs are well expanded. Minimal increased markings in the anterior medial aspect of the right upper lobe suggestive of scarring. Patchy peripheral infiltrates in the anterior aspect of the right middle lobe as well as in the lateral aspect of the right lower lobe and superior segment of the left upper lobe. The infiltrate in the superior segment of the left upper lobe has a nodular appearance. Follow-up is recommended. Normal pleura. Normal chest wall structures. There are degenerative changes of thoracic spine. Focal sclerotic changes at multiple endplates. This may be related to Schmorl''s nodes. Calcified splenic granulomas. CT/CTA Chest W/WO Contrast IMPRESSION: No evidence of pulmonary embolism. Findings suggestive of a mild degree of scarring with bilateral patchy infiltrates. There is evidence of a nodular infiltrate in the peripheral lateral aspect of the left upper lobe as described. This measures 1.3 cm x 1.6 cm. Radiographic follow-up is recommended. Electronically Signed: Nicolás Delarosa MD at 15:43 EDT , Service support ,
[2021-07-31] MEDS: dexAMETHasone 4 MG/ML Vial 6 MG IV (15:10)
[2021-07-31 15:13] VITALS: BP 123/91; PULSE 72; RESP 20; O2SAT 98
[2021-07-31 15:39] LABS: Differential Comment SCANNED
[2021-07-31] MEDS: Ketorolac 30 MG/ML Syringe IV (15:50)
[2021-07-31] MEDS: Acetaminophen 500 MG Tablet 1000 MG PO (15:51)
[2021-07-31 16:58] VITALS: BP 105/63; PULSE 61; RESP 15; O2SAT 95
== END 2021-07-31 17:22 | disposition home or self-care (01) ==
PROVIDERS: Emergency Provider Emergency Medicine
DX: U07.1 COVID-19 (principal); I25.10 Atherosclerotic heart disease of native coronary artery without angina pectoris; I25.2 Old myocardial infarction; E78.5 Hyperlipidemia, unspecified; F17.210 Nicotine dependence, cigarettes, uncomplicated; Z79.82 Long term (current) use of aspirin; Z79.52 Long term (current) use of systemic steroids; Z79.899 Other long term (current) drug therapy; Z86.73 Personal history of transient ischemic attack (TIA), and cerebral infarction without residual deficits
CPT/HCPCS: 71045; 71275; 80053; 83605; 84484; 85025; 85379; 87040; 87426; 93005; 96374; 96375; 99285; Q9967; A4216

== ENCOUNTER 2021-08-10 16:47 | Inpatient (IN) | payer MEDICARE, SELFPAY ==
[2021-08-10] VITALS (8 sets, daily range): BP systolic 137–166; BP diastolic 74–90; PULSE 45–60; RESP 16–26; TEMP 35.8–36.3; O2SAT 96–98; BMI 22.6; BMI 24.4
--- NOTE | 2021-08-10 17:06 | CT_ITS ---
EXAM: CT HEAD WITHOUT INTRAVENOUS CONTRAST CLINICAL INDICATION: Encephalopathy acute TECHNIQUE: Multiple axial images were obtained of the head without intravenous contrast. This CT exam was performed using one or more of the following dose reduction techniques: automated exposure control, adjustment of the mA and/or kV according to patient size, and/or use of iterative reconstruction technique. This report was created using [employer] report generation technology. COMPARISON: 12/01/2019. FINDINGS: BRAIN AND EXTRA-AXIAL SPACES: Central parenchymal volume loss. White matter changes that are nonspecific but most commonly associated with chronic small vessel ischemic disease. No intra- or extra-axial hemorrhage. No intracranial mass or mass effect. Posterior fossa structures are unremarkable. Ventricles are appropriate for age. No hydrocephalus. Basal cisterns are patent. BONES/JOINTS: Unremarkable. No discrete lytic or blastic abnormalities. SINUSES: Unremarkable as visualized. Clear. MASTOID AIR CELLS: Unremarkable. Clear. ORBITS: Visualized globes, extraocular muscles, optic nerves and retrobulbar fat appear unremarkable. CT/Brain/Head without Contrast IMPRESSION: No acute findings in the head/brain. Electronically Signed: Leoenl Dennis MD ([place]) at 17:39 EDT , Service support ,
[2021-08-10 17:19] LABS: Absolute Lymphocyte Count 4.25 X10^3/uL (0.83-4.51); Absolute Neutrophil Count 11.3 X10^3/uL (2.0-7.7); Basophil# 0.06 X10^3/uL; Basophil% 0.3 % (0-1); Eosinophil# 0.08 X10^3/uL; Eosinophils% 0.5 % (0-5); Hemoglobin 15.3 g/dL (13.0-16.5); Lymphocyte # 4.25 X10^3/ul (0.83-4.51); Lymphocyte % 24.2 % (19-41); Mean Corpuscular Volume 94.1 fL (80-94); Mean Platelet Vol. 10.3 fl (6.2-12.0); Monocyte% 9.1 % (0-10); NRBC Flagged by Analyzer 0 % (0-5); Neutrophil # 11.34 X10^3/uL (2.7-7.7); Neutrophil % 64.8 % (47-70); POSITIVE DIFFERENTIAL YES; Platelet Count 337 K/mm3 (150-450); RBC Distribution Width CV 12.7 % (11.6-14.6); RBC Distribution Width SD 43.9 fl (35.1-43.9); Red Blood Count 4.78 M/mm3 (4.6-6.2); White Blood Count 17.5 K/mm3 (4.4-11.0)
[2021-08-10 17:20] LABS: Differential Indicated SCAN CRITERIA MET
[2021-08-10 17:30] LABS: ALB/GLOB Ratio 0.8 RATIO (0.9-2.4); AST(SGOT) 30 U/L (15-37); Alanine Aminotransfer ALT/SGPT 67 U/L (16-61); Albumin, Serum 2.9 g/dL (3.2-5.0); Alkaline Phosphatase 66 U/L (45-117); Anion Gap 6 (5-15); BUN 15 mg/dL (7-18); BUN/Creat Ratio 13.4 RATIO (10-20); Calcium,Total 9.5 mg/dL (8.5-10.1); Chloride 108 mmol/L (98-107); Creatinine, Serum 1.12 mg/dL (0.70-1.30); EST Glomerular Filtration Rate 70 mL/min (>60); Est Glom Filt Rate - Afr Amer 85 mL/min (>60); Estimated Creatinine Clearance 69.37 ml/min; Globulin 3.8 g/dL (2.2-4.2); Glucose 96 mg/dL (74-106); Potassium 3.5 mmol/L (3.5-5.1); Protein, Total 6.7 g/dL (6.4-8.2); Sodium Level 144 mmol/L (136-145)
[2021-08-10 17:49] LABS: Lactic Acid 1.1 mmol/L (0.4-1.9)
[2021-08-10 19:28] LABS: Mucous, Urine 0 SEEN /hpf (<or=2+); Red Blood Cells-Urine 0 SEEN /hpf (0-5); Squamous Epithelial Cells - UA 0 SEEN /hpf (0-5); White Blood Cells 0 SEEN /hpf (0-5)
[2021-08-10 19:37] LABS: Color, Urine Yellow (Yellow); Glucose, Dipstick Normal (Normal); Ketone-Dipstick Negative (Negative); Leukocyte Esterase-Dipstick Negative /ul (Negative); Nitrite-Dipstick Negative (Negative); Occult Blood-Urine Negative /ul (Negative); Protein-Dipstick 15 mg/dl (Negative); Specific Gravity, Urine 1.015 (1.002-1.030); Urine Bilirubin Dipstick Negative (Negative); Urine Clarity Clear (Clear); Urine Urobilinogen 1 mg/dl (Normal); Urine pH 6.5 (5.0 - 8.0)
[2021-08-10 19:46] LABS: Bacteria RARE /hpf (None Seen)
--- NOTE | 2021-08-10 20:44 | HP.PCM.HOS_ITS ---
HPI - General General Date of Admission: 08/10/21 Date of Service: 08/10/21 Chief Complaint: Recent COVID dx, increased confusion, transient R sided weakness, imbalance. HPI Narrative The patient is a 66 y/o M w/ PMHx: Prior CVA, HTN, HLD, CAD s/p STEMI w/ PCI, Tobacco use with recent ED evaluation 07/31/2021 with at that time onset sxs 3-4 days with fatigue, malaise, cough, fever, nausea, decreased oral intake, mild headache, mild sore throat, decreased sense of taste/smell without marked dyspnea, not COVID vaccinated with positive COVID diagnosis at this visit with discharge on Decadron and referral for monoclonal antibody treatment who now re- presents to the [facility] ED on 08/10/21 with history of ongoing Covid type symptoms however he feels more confused, weak with general malaise and poor oral intake with transient episode on day of presentation of right-sided upper and lower extremity weakness with difficulty with balance witnessed per his report per his brother prompting initial ED evaluation. Patient does report he has been taking his Decadron. Work-up in the ED included T 97.4, heart rate 59, BP 166/89, respiratory rate 26, 98% on room air, CBC with WC 17.5, hemoglobin 15.3, platelets 337 with left shift, CMP with chloride 108, lactic acid 1.1, AST/ALT 30/67 otherwise unremarkable hepatic profile, urinalysis not marked appearing, EKG with sinus bradycardia with nonspecific changes with no acute evidence of ischemia, chest x-ray with multifocal infiltrates bilaterally consistent with Covid pneumonia, CT head with no acute intracranial findings. [facility] Medical History Arteriosclerosis of coronary artery in patient with history of myocardial infarction Community acquired pneumonia History of stroke Hyperlipidemia STEMI (ST elevation myocardial infarction) Tobacco abuse Home Medications aspirin 81 mg PO DAILY@0800 #30 tab 04/30/20 [Rx Last Taken Unknown] atorvastatin 80 mg PO QHS #30 tab 04/30/20 [Rx Last Taken Unknown] colchicine 0.6 mg PO BID #6 tab 04/30/20 [Rx Last Taken Unknown] indomethacin 25 mg PO TIDCM #21 cap 04/30/20 [Rx Last Taken Unknown] levofloxacin 500 mg PO DAILY #5 tab 04/30/20 [Rx Last Taken Unknown] lisinopril 2.5 mg PO DAILY #30 tab 04/30/20 [Rx Last Taken Unknown] metoprolol tartrate 12.5 mg PO BID #60 tab 04/30/20 [Rx Last Taken Unknown] nitroglycerin 0.4 mg SUBLINGUAL Q5M PRN #30 tab.subl 04/30/20 [Rx Last Taken Unknown] pantoprazole 40 mg PO DAILY #30 tab 04/30/20 [Rx Last Taken Unknown] Brilinta 90 mg tablet 90 mg PO BID #180 tab NS 05/08/20 [Rx Last Taken Unknown] dexamethasone [Decadron] 6 mg PO DAILY #10 tab 07/31/21 [Rx Last Taken Unknown] ondansetron 4 mg PO Q8H PRN #10 tab 07/31/21 [Rx Last Taken Unknown] Allergy/AdvReac Type Severity Reaction Status Date / Time BEES Allergy Anaphylaxis Uncoded 04/28/20 11:38 Family History (Updated 08/10/21 @ 22:[address] Nicki Erazo MD) Mother CVA (cerebral vascular accident) Hypertension Father CVA (cerebral vascular accident) Hypertension Surgical History Stented coronary artery (04/28/20) Social History (Updated 08/10/21 @ 22:[address] Nicki Erazo MD) household members: none Smoking Status: Current every day smoker tobacco type: cigarettes Smoking packs per day: 1 Smoking cigarettes per day: 20.0 alcohol intake: current alcohol intake frequency: a few times a month substance use type: does not use ROS ROS Narrative Admission Review of Systems: CONSTITUTIONAL: No weight loss, + fever, chills, weakness or fatigue. HEENT: + Headache, sore throat. Eyes: No visual loss, blurred vision, double vision or yellow sclerae. Ears, Nose, Throat: No hearing loss, sneezing. SKIN: No rash or itching, lesions, wounds. CARDIOVASCULAR: No chest pain, chest pressure or chest discomfort, palpitations, edema, orthopnea, syncopal events. RESPIRATORY: + Cough, dyspnea, No sputum, wheezing, hemoptysis. GASTROINTESTINAL: + Anorexia, No nausea, vomiting or diarrhea, abdominal pain, melena, BRBPR. GENITOURINARY: No dysuria, frequency, urgency or retention. NEUROLOGICAL: + headache, confusion, episode R sided weakness/imbalance, No dizziness, syncope, numbness or tingling in the extremities, change in bowel or bladder control, seizure. MUSCULOSKELETAL: + muscle, back pain, joint pain or stiffness. HEMATOLOGIC: No anemia, bleeding or bruising. LYMPHATICS: No enlarged nodes. No history of splenectomy. PSYCHIATRIC: No history of depression or anxiety. ENDOCRINOLOGIC: No reports of sweating, cold or heat intolerance. No polyuria or polydipsia. ALLERGIES: No history of asthma, hives, eczema or rhinitis. Vital Signs Vital Signs Vital Signs: 08/10/21 16:49 08/10/21 16:55 08/10/21 19:07 Temperature 97.4 F L 97.4 F L Temperature Source Temporal Temporal Pulse Rate 59 L 59 L 60 Respiratory Rate 26 H 26 H 23 H Blood Pressure 166/89 H 166/89 H 147/90 H Blood Pressure Mean 114 114 109 Pulse Ox 98 98 Oxygen Delivery Method Room Air Room Air 08/10/21 20:01 Temperature Temperature Source Pulse Rate 59 L Respiratory Rate 24 H Blood Pressure 138/81 H Blood Pressure Mean 100 Pulse Ox 96 Oxygen Delivery Method Room Air Weight Weight: 162 lb 4.163 oz Body Mass Index (BMI) 22.6 Physical Exam Narrative Physical Examination: General: Awake, alert, oriented to self, place and some recent events but states he feels out of it and does appear confused, remains cooperative and does follow some commands but has gotten himself out of the ED bed and is sitting at the bedside with monitor off, no acute distress but does appear anxious. Skin: Normal color, normal turgor, no icterus, no cyanosis. HEENT: AT/NC, EOMI, PERRLA, dry MM, no carotid bruits or JVD noted. Lungs: Diffusely diminished, greater bases, mildly increased respiratory rate but no evidence of any distress, no rales, ronchi or wheezing. Heart: Bradycardic with regular rhythm; no gallop, rub audible. Abdomen: Soft, NTTP, ND, normal BS, no HSM. Extremities: No cyanosis, clubbing, or edema. Neurological: Patient awake, alert, oriented as noted, cognitive function not baseline intact; pupils equally reactive to light and accommodation, cranial nerves II-XII grossly normal, moving all 4 extremities, no focal deficits, sensation intact, negative Babinski, [id number]/finger nose negative, curre ntly generalized moderate to severe strength decrease. Psychiatric: Affect appears anxious, confused, no acute evidence of depressive feelings. Results Lab / Micro Data Result Diagrams: 08/10/21 16:50 08/10/21 16:50 Labs: Laboratory Results - last 24 hr 08/10/21 16:50: WBC 17.5 H, RBC 4.78, Hgb 15.3, Hct 45.0, MCV 94.1 H, MCH 32.0, MCHC 34.0, RDW Std Deviation 43.9, RDW Coeff of Julita 12.7, Plt Count 337, MPV 10.3, Immature Gran % (Auto) 1.100 H, Neut % (Auto) 64.8, Lymph % (Auto) 24.2, [place] % (Auto) 9.1, Eos % (Auto) 0.5, Baso % (Auto) 0.3, Absolute Neuts (auto) 11.3 H, Absolute Lymphs (auto) 4.25, Nucleated RBC % 0, Differential Comment 08/10/21 16:50: Sodium 144, Potassium 3.5, Chloride 108 H, Carbon Dioxide 30.0, Anion Gap 6, BUN 15, Creatinine 1.12, Estim Creat Clear Calc 69.37, Est GFR (MDRD) Af Amer 85, Est GFR (MDRD) Non-Af 70, BUN/Creatinine Ratio 13.4, Glucose 96, Calcium 9.5, Total Bilirubin 0.40, AST 30, ALT 67 H, Alkaline Phosphatase 66, Total Protein 6.7, Albumin 2.9 L, Globulin 3.8, Albumin/Globulin Ratio 0.8 L 08/10/21 17:15: Lactic Acid 1.1 08/10/21 19:10: Urine Color Yellow, Urine Clarity Clear, Urine pH 6.5, Ur Spe cific [place] 1.015, Urine Protein 15 H, Urine Glucose (UA) Normal, Urine Ket ones Negative, Urine Occult Blood Negative, Urine Nitrite Negative, Urine Bilirubin Negative, Urine Urobilinogen 1 H, Ur Leukocyte Esterase Negative, Urine RBC 0 SEEN, Urine WBC 0 SEEN, Ur Squamous Epith Cells 0 SEEN, Urine Bacteria RARE, Urine Mucus 0 SEEN Radiology Impression Brain CT 08/10/21 17:06 IMPRESSION: No acute findings in the head/brain. Electronically Signed: Leonel Dennis MD ([place]) at 17:39 EDT , Service support , Assessment & Plan Assessment/Plan (1) Pneumonia due to COVID-19 virus: (2) Encephalopathy acute: PLAN: The patient is a 66 y/o M w/ PMHx: Prior CVA, HTN, HLD, CAD s/p STEMI w/ PCI, Tobacco use with recent ED evaluation 07/31/2021 with at that time onset sxs x 3-4 days with positive COVID diagnosis at this visit with discharge on Decadron and referral for monoclonal antibody treatment who now re-presents to the [facility] ED on 08/10/21 with history of ongoing Covid type symptoms however he feels more confused, weak with general malaise and poor oral intake with transient episode on day of presentation of right-sided upper and lower extremity weakness with difficulty with balance witnessed per his report per his brother prompting initial ED evaluation. 1. Acute Bilateral Pneumonia secondary to Acute Viral Syndrome, COVID-19 with Acute encephalopathy possibly secondary to #2 versus Covid primarily related: Will admit to the PCU given concern for possible CVA which could certainly be related to Covid infection, given nonhypoxic patient has completed timeline of Covid quarantine therefore will not maintain on any further quarantine, will maintain on oxygen with wean as tolerated to room air, PRN albuterol, HOB, IS parameters w/ pending sputum cultures, respiratory viral panel and urine antigens, will obtain D-dimer, procalcitonin, CRP, CPK, Ferritin, LDH and BNP, continue supportive care including q 2 hour turning including prone given no prone bed availability and judicious hydration, closely monitor for worsening status for ARDS and multiorgan failure, patient is not hypoxic and completed Decadron therapy only recently. 2. Transient right-sided weakness, altered speech and imbalance concerning for CVA in the setting of #1 with increased confusion/encephalopathy: Will obtain MRI Brain, MRA Head and Neck, ECHO, PT/OT/Speech/Nutrition evaluation per protocol. Will allow permissive HTN given recent onset of these neurological symptoms, maintain on patient antiplatelet therapy, statin, fall precautions. Hemoglobin A1c, FLP, magnesium, TSH requested. 3. CAD: Status post PCI, we will continue patient home aspirin, Brilinta, statin therapy, temporarily holding patient home metoprolol and lisinopril for permissive hypertension, add back once appropriate. 4. Hypertension: Will transiently hold patient hypertensive regimen and allow permissive hypertension, add back once appropriate. 5. Hyperlipidemia: Continue home statin regimen. AM FLP. 6. GERD: We will continue patient home PPI. 7. Tobacco Abuse: Encouraged cessation, inpatient consultation per RT, NR if desired. 8. DVT prophylaxis: SCDs, Lovenox. 9. CODE status: Given Covid pneumonia and unvaccinated status, discussed CODE status at length including difference between FULL code, DNR-CCA and DNR-CC status. Following discussions about the differences in these status, requested Full Code status which will be continued for now however patient does report feeling confused and out of it, thus if anything untoward does occur will verify with family. Advanced Care Planning Face to Face Time: 16 minutes. Charges/Coding Visit Charges Inpatient E&M: 88995 Init Hosp L3 Procedures Hospitalists Procedures: 29101 Advncd Care Plan 30 Min
--- NOTE | 2021-08-10 20:49 | EDS_ITS ---
HPI History of Present Illness Chief Complaint: Neuro S/Sx Detail of Chief Complaint: Confusion and neuro symptoms per friend Informant: patient and family Limited: other Onset/Context/Timing Onset: - (Onset unknown) Context: - (Unknown) Timing: - (On known) Quality: Confusion and altered mental status Location: Lives at home by himself Worsened by: Unknown Relieved by: Unknown Associated Symptoms Associated Symptoms: I do not feel right and needs help Narrative Narrative: Patient is a 66-year-old male with history of coronary disease, [facility] pneumonia, prior stroke, hyperlipidemia and diagnosed with Covid infection July 31. He presents because of confusion. Friend found him not his normal self. He was brought to the emergency department. He states he does not feel well and states he needs help. Patient is not a good informant. He is very vague. Prior similar symptoms: No Recent Illness/Hospitalization: Yes [facility] Medical History Arteriosclerosis of coronary artery in patient with history of myocardial infarction Community acquired pneumonia History of stroke Hyperlipidemia STEMI (ST elevation myocardial infarction) Tobacco abuse Home Medications aspirin 81 mg PO DAILY@0800 #30 tab 04/30/20 [Rx Last Taken Unknown] atorvastatin 80 mg PO QHS #30 tab 04/30/20 [Rx Last Taken Unknown] colchicine 0.6 mg PO BID #6 tab 04/30/20 [Rx Last Taken Unknown] indomethacin 25 mg PO TIDCM #21 cap 04/30/20 [Rx Last Taken Unknown] levofloxacin 500 mg PO DAILY #5 tab 04/30/20 [Rx Last Taken Unknown] lisinopril 2.5 mg PO DAILY #30 tab 04/30/20 [Rx Last Taken Unknown] metoprolol tartrate 12.5 mg PO BID #60 tab 04/30/20 [Rx Last Taken Unknown] nitroglycerin 0.4 mg SUBLINGUAL Q5M PRN #30 tab.subl 04/30/20 [Rx Last Taken Unknown] pantoprazole 40 mg PO DAILY #30 tab 04/30/20 [Rx Last Taken Unknown] Brilinta 90 mg tablet 90 mg PO BID #180 tab NS 05/08/20 [Rx Last Taken Unknown] dexamethasone [Decadron] 6 mg PO DAILY #10 tab 07/31/21 [Rx Last Taken Unknown] ondansetron 4 mg PO Q8H PRN #10 tab 07/31/21 [Rx Last Taken Unknown] Allergy/AdvReac Type Severity Reaction Status Date / Time BEES Allergy Anaphylaxis Uncoded 04/28/20 11:38 Surgical History Stented coronary artery (04/28/20) Social History (Updated 08/10/21 @ 20:[address] Cedrick Payne MD) household members: none Smoking Status: Current every day smoker tobacco type: cigarettes details: Unknown alcohol use substance use type: does not use ROS ROS ED Review of Systems ROS Unobtainable: due to mental status EXAM Physical Exam Const Vital Signs: 08/10/21 16:49 08/10/21 16:55 08/10/21 19:07 Temperature 97.4 F L 97.4 F L Temperature Source Temporal Temporal Pulse Rate 59 L 59 L 60 Respiratory Rate 26 H 26 H 23 H Blood Pressure 166/89 H 166/89 H 147/90 H Blood Pressure Mean 114 114 109 Pulse Ox 98 98 Oxygen Delivery Method Room Air Room Air 08/10/21 20:01 Temperature Temperature Source Pulse Rate 59 L Respiratory Rate 24 H Blood Pressure 138/81 H Blood Pressure Mean 100 Pulse Ox 96 Oxygen Delivery Method Room Air Positive well nourished and well developed General Appearance ED: well developed and NAD; Negative for cyanotic, diaphoretic or other HEENT Reports TM's clear and moist mucous membranes Tympanic Membrane ED: Yes TM's clear MDM MDM Lab Data Labs: Laboratory Results - last 24 hr 08/10/21 08/10/21 08/10/21 16:50 16:50 17:15 WBC 17.5 H RBC 4.78 Hgb 15.3 Hct 45.0 MCV 94.1 H MCH 32.0 MCHC 34.0 RDW Std Deviation 43.9 RDW Coeff of Julita 12.7 Plt Count 337 MPV 10.3 Immature Gran % (Auto) 1.100 H Neut % (Auto) 64.8 Lymph % (Auto) 24.2 [place] % (Auto) 9.1 Eos % (Auto) 0.5 Baso % (Auto) 0.3 Absolute Neuts (auto) 11.3 H Absolute Lymphs (auto) 4.25 Nucleated RBC % 0 Differential Comment Sodium 144 Potassium 3.5 Chloride 108 H Carbon Dioxide 30.0 Anion Gap 6 BUN 15 Creatinine 1.12 Estim Creat Clear Calc 69.37 Est GFR (MDRD) Af Amer 85 Est GFR (MDRD) Non-Af 70 BUN/Creatinine Ratio 13.4 Glucose 96 Lactic Acid 1.1 Calcium 9.5 Total Bilirubin 0.40 AST 30 ALT 67 H Alkaline Phosphatase 66 Total Protein 6.7 Albumin 2.9 L Globulin 3.8 Albumin/Globulin Ratio 0.8 L Urine Color Urine Clarity Urine pH Ur Specific [place] Urine Protein Urine Glucose (UA) Urine Ketones Urine Occult Blood Urine Nitrite Urine Bilirubin Urine Urobilinogen Ur Leukocyte Esterase Urine RBC Urine WBC Ur Squamous Epith Cells Urine Bacteria Urine Mucus 08/10/21 19:10 WBC RBC Hgb Hct MCV MCH MCHC RDW Std Deviation RDW Coeff of Julita Plt Count MPV Immature Gran % (Auto) Neut % (Auto) Lymph % (Auto) [place] % (Auto) Eos % (Auto) Baso % (Auto) Absolute Neuts (auto) Absolute Lymphs (auto) Nucleated RBC % Differential Comment Sodium Potassium Chloride Carbon Dioxide Anion Gap BUN Creatinine Estim Creat Clear Calc Est GFR (MDRD) Af Amer Est GFR (MDRD) Non-Af BUN/Creatinine Ratio Glucose Lactic Acid Calcium Total Bilirubin AST ALT Alkaline Phosphatase Total Protein Albumin Globulin Albumin/Globulin Ratio Urine Color Yellow Urine Clarity Clear Urine pH 6.5 Ur Specific [place] 1.015 Urine Protein 15 H Urine Glucose (UA) Normal Urine Ketones Negative Urine Occult Blood Negative Urine Nitrite Negative Urine Bilirubin Negative Urine Urobilinogen 1 H Ur Leukocyte Esterase Negative Urine RBC 0 SEEN Urine WBC 0 SEEN Ur Squamous Epith Cells 0 SEEN Urine Bacteria RARE Urine Mucus 0 SEEN Radiography Diagnostic Testing: Clinical Impression(s) from Imaging Studies Brain CT 08/10/21 17:06 IMPRESSION: No acute findings in the head/brain. Electronically Signed: Leonel Dennis MD ([place]) at 17:39 EDT , Service support , Discharge Plan Triage Chief Complaint: Neuro S/Sx ED Provider: Cedrick Payne Dx/Rx/DC Orders Prescriptions: No Action atorvastatin 80 MG tablet 80 mg PO QHS Qty: 30 RF: 1 aspirin 81 MG tablet 81 mg PO DAILY@0800 Qty: 30 RF: 1 pantoprazole 40 MG tablet 40 mg PO DAILY Qty: 30 RF: 0 indomethacin 25 MG capsule 25 mg PO TIDCM Qty: 21 RF: 0 nitroglycerin 0.4 MG tablet, sublingual 0.4 mg sublingual Q5M PRN (Reason: Cardiac/Chest Pain) Qty: 30 RF: 0 lisinopril 2.5 MG tablet 2.5 mg PO DAILY Qty: 30 RF: 1 metoprolol tartrate 25 MG tablet 12.5 mg PO BID Qty: 60 RF: 1 colchicine 0.6 MG tablet 0.6 mg PO BID Qty: 6 RF: 0 levofloxacin 500 MG tablet 500 mg PO DAILY Qty: 5 RF: 0 dexamethasone [Decadron] 6 mg tablet 6 mg PO DAILY Qty: 10 RF: 0 ondansetron 4 mg tablet,disintegrating 4 mg PO Q8H PRN (Reason: nausea and vomiting) Qty: 10 RF: 0 Brilinta 90 mg tablet 90 mg PO BID Qty: 180 RF: 3 Primary Care Provider: Care Physician,No Primary
--- NOTE | 2021-08-10 21:08 | ED.VIS.STROK ---
HPI History of Present Illness Chief Complaint: Neuro S/Sx Detail of Chief Complaint: Neighbor brought him in because of concern for stroke Informant: patient and friend Onset/Context/Timing Onset: - (Unknown) Context: - (Unknown) Timing: - Onset: OnKnown on known Worsened by: Unknown Relieved by: Unknown Associated Symptoms Associated Symptoms: Negative for Headache, Nausea, Vomiting and Chest Pain Narrative Narrative: Patient is a 66-year-old male with history coronary disease, CVA, hyperlipidemia and recent diagnosis for Covid. He was diagnosed with Covid on July 31. He was discharged home with Decadron. According to friend he lives alone. Friend states he is does not know when this started. Patient apparently told the triage nurse that he is having a stroke and has right-sided weakness. He informed me that I do not feel well and I need help . He also states there is something wrong. When asked why he believes he has a stroke he was not able to give any specifics. He denies headache. He denies visual, ocular auditory symptoms. Friend states he has problem with speech. There has been stuttering. There is been no slurring or problem with fluency. He denies blurred vision, double vision or loss of vision. He denies ringing in his ears decreased hearing. He denies cardiac respiratory symptoms. He apparently had no vomiting diarrhea. He denies rash. He denies numbness or tingling upper lower extremity. Has had no trouble with his balance that he is aware of. Prior similar symptoms: No Recent Illness/Hospitalization: Yes [facility] Medical History Arteriosclerosis of coronary artery in patient with history of myocardial infarction Community acquired pneumonia History of stroke Hyperlipidemia STEMI (ST elevation myocardial infarction) Tobacco abuse Home Medications aspirin 81 mg PO DAILY@0800 #30 tab 04/30/20 [Rx Last Taken Unknown] atorvastatin 80 mg PO QHS #30 tab 04/30/20 [Rx Last Taken Unknown] colchicine 0.6 mg PO BID #6 tab 04/30/20 [Rx Last Taken Unknown] indomethacin 25 mg PO TIDCM #21 cap 04/30/20 [Rx Last Taken Unknown] levofloxacin 500 mg PO DAILY #5 tab 04/30/20 [Rx Last Taken Unknown] lisinopril 2.5 mg PO DAILY #30 tab 04/30/20 [Rx Last Taken Unknown] metoprolol tartrate 12.5 mg PO BID #60 tab 04/30/20 [Rx Last Taken Unknown] nitroglycerin 0.4 mg SUBLINGUAL Q5M PRN #30 tab.subl 04/30/20 [Rx Last Taken Unknown] pantoprazole 40 mg PO DAILY #30 tab 04/30/20 [Rx Last Taken Unknown] Brilinta 90 mg tablet 90 mg PO BID #180 tab NS 05/08/20 [Rx Last Taken Unknown] dexamethasone [Decadron] 6 mg PO DAILY #10 tab 07/31/21 [Rx Last Taken Unknown] ondansetron 4 mg PO Q8H PRN #10 tab 07/31/21 [Rx Last Taken Unknown] Allergy/AdvReac Type Severity Reaction Status Date / Time BEES Allergy Anaphylaxis Uncoded 04/28/20 11:38 Surgical History Stented coronary artery (04/28/20) Social History household members: none Smoking Status: Current every day smoker tobacco type: cigarettes details: Unknown alcohol use substance use type: does not use ROS ROS ED Constitutional Constitutional ED: Denies chills, fever(s), subjective, sweats or weakness Eyes Eyes: Denies blurry vision, change in vision or diplopia ENT ENT ED: Denies ear pain, rhinorrhea or sore throat Cardiovascular Cardiovascular: Reports palpitations and racing heartbeat; Denies chest pain or paroxysmal nocturnal dyspnea Respiratory/Chest Respiratory/Chest: Denies cough, dyspnea, dyspnea on exertion or paroxysmal nocturnal dyspnea Gastrointestinal Gastrointestinal: Denies abdominal pain, diarrhea, nausea or vomiting Genitourinary Genitourinary ED: Denies dysuria, hematuria or urinary frequency Musculoskeletal Musculoskeletal: Denies arthralgias, myalgias or neck pain Integumentary Denies Abrasions or rash Neurologic Neurologic: Denies headache(s) or weakness Endocrine Endocrinology: Denies polydipsia or polyuria Hematologic/Lymphatic Hematologic/Lymphatic: Denies easy bleeding or easy bruising EXAM Physical Exam Const Vital Signs: 08/10/21 16:49 08/10/21 16:55 08/10/21 19:07 Temperature 97.4 F L 97.4 F L Temperature Source Temporal Temporal Pulse Rate 59 L 59 L 60 Respiratory Rate 26 H 26 H 23 H Blood Pressure 166/89 H 166/89 H 147/90 H Blood Pressure Mean 114 114 109 Pulse Ox 98 98 Oxygen Delivery Method Room Air Room Air 08/10/21 20:01 Temperature Temperature Source Pulse Rate 59 L Respiratory Rate 24 H Blood Pressure 138/81 H Blood Pressure Mean 100 Pulse Ox 96 Oxygen Delivery Method Room Air Positive well nourished and well developed General Appearance ED: well developed and NAD HEENT Reports TM's clear and moist mucous membranes atraumatic Tympanic Membrane ED: Yes TM's clear Eyes PERRL and EOMs intact bilaterally General Eye ED: Negative for pale conjunctiva or scleral icterus Neck no lymphadenopathy, supple and no JVD Resp normal respiratory effort and clear to auscultation bilaterally Cardio no murmurs Rate: tachycardic Rhythm: abnormal rhythm GI normal to inspection, nondistended, normoactive bowel sounds Palpation: Negative for hepatomegaly or splenomegaly Back/Spine no CVA tenderness Extremity normal to inspection General Extremety ED: Negative for deformity or tenderness General Extremity: Negative for deformity Neuro oriented x3 and CN's II-XII intact bilaterally [place] Coma Scale: document GCS findings Spontaneous Obeys Commands Oriented 15 Sensorium / Orientation: alert Speech: speech normal Psych mental status grossly normal Skin no wounds General Skin Exam: Negative for jaundice Lesions: no lesions Rashes: no rashes STROKE Vital Signs/Narrative: Vital Signs Pulse Resp BP Pulse Ox 08/10/21 20:01 59 L 24 H 138/81 H 96 08/10/21 19:07 60 23 H 147/90 H MDM MDM MDM Narrative Medical decision making narrative: Patient presents with altered mental status. Uncertain when this started. This may represent stroke, encephalopathy, delirium. Need to evaluate for infectious versus metabolic causes. After discussion with hospitalist she requested a chest x-ray. This was performed. Lab Data Attestation: I reviewed the patient's lab results. Labs: Laboratory Results - last 24 hr 08/10/21 08/10/21 08/10/21 16:50 16:50 17:15 WBC 17.5 H RBC 4.78 Hgb 15.3 Hct 45.0 MCV 94.1 H MCH 32.0 MCHC 34.0 RDW Std Deviation 43.9 RDW Coeff of Julita 12.7 Plt Count 337 MPV 10.3 Immature Gran % (Auto) 1.100 H Neut % (Auto) 64.8 Lymph % (Auto) 24.2 Drew % (Auto) 9.1 Eos % (Auto) 0.5 Baso % (Auto) 0.3 Absolute Neuts (auto) 11.3 H Absolute Lymphs (auto) 4.25 Nucleated RBC % 0 Differential Comment Sodium 144 Potassium 3.5 Chloride 108 H Carbon Dioxide 30.0 Anion Gap 6 BUN 15 Creatinine 1.12 Estim Creat Clear Calc 69.37 Est GFR (MDRD) Af Amer 85 Est GFR (MDRD) Non-Af 70 BUN/Creatinine Ratio 13.4 Glucose 96 Lactic Acid 1.1 Calcium 9.5 Total Bilirubin 0.40 AST 30 ALT 67 H Alkaline Phosphatase 66 Total Protein 6.7 Albumin 2.9 L Globulin 3.8 Albumin/Globulin Ratio 0.8 L Urine Color Urine Clarity Urine pH Ur Specific [place] Urine Protein Urine Glucose (UA) Urine Ketones Urine Occult Blood Urine Nitrite Urine Bilirubin Urine Urobilinogen Ur Leukocyte Esterase Urine RBC Urine WBC Ur Squamous Epith Cells Urine Bacteria Urine Mucus 08/10/21 19:10 WBC RBC Hgb Hct MCV MCH MCHC RDW Std Deviation RDW Coeff of Julita Plt Count MPV Immature Gran % (Auto) Neut % (Auto) Lymph % (Auto) [place] % (Auto) Eos % (Auto) Baso % (Auto) Absolute Neuts (auto) Absolute Lymphs (auto) Nucleated RBC % Differential Comment Sodium Potassium Chloride Carbon Dioxide Anion Gap BUN Creatinine Estim Creat Clear Calc Est GFR (MDRD) Af Amer Est GFR (MDRD) Non-Af BUN/Creatinine Ratio Glucose Lactic Acid Calcium Total Bilirubin AST ALT Alkaline Phosphatase Total Protein Albumin Globulin Albumin/Globulin Ratio Urine Color Yellow Urine Clarity Clear Urine pH 6.5 Ur Specific [place] 1.015 Urine Protein 15 H Urine Glucose (UA) Normal Urine Ketones Negative Urine Occult Blood Negative Urine Nitrite Negative Urine Bilirubin Negative Urine Urobilinogen 1 H Ur Leukocyte Esterase Negative Urine RBC 0 SEEN Urine WBC 0 SEEN Ur Squamous Epith Cells 0 SEEN Urine Bacteria RARE Urine Mucus 0 SEEN Radiography Diagnostic Testing: Clinical Impression(s) from Imaging Studies Brain CT 08/10/21 17:06 IMPRESSION: No acute findings in the head/brain. Electronically Signed: Leonel Dennis MD ([place]oks) at 17:39 EDT , Service support , Single view chest x-ray reveals chronic changes with mild hyperaeration. Cardiac silhouette size normal. Mediastinum is normal. Osseous structures unremarkable. Portable chest x-ray was interpreted by me at 2149. EKG Initial EKG: Attestation: I personally reviewed and interpreted this EKG as follows: Interpretation: Sinus Bradycardia (Ventricular rate is 47. NV interval is 164 ms. Cures duration 88 ms. QT duration 4 to 30 ms. [place] is normal. There is flipped T waves in the inferior leads.) Stroke Documentation Questions Stroke Team Activated: No Reviewed Inclusion/Exclusion criteria: No Was Patient considered for Endovascular Intervention?: No IV Alteplase (t-PA) Administered: No No contraindications for IV Alteplase (t-PA) administration.: No Alteplase (t-PA) risks, benefits, alternative discussed: No Discharge Plan Dx/Rx/DC Orders Clinical Impression: Acute delirium, History of stroke, COVID-19 virus infection, Encephalopathy acute Disposition Disposition: Acute Care [facility]
--- NOTE | 2021-08-10 21:21 | RAD_ITS ---
STUDY: X-RAY CHEST REASON FOR EXAM: Male, 66 years old. OVID POSITIVE. LAST KNOWN WELL UNKNOWN, PT REPORTED DIDN''T FEEL GOOD LAST NIGHT, C/O H/A, BALANCE IS OFF WHEN AMBULATING, SPEECH AFFECTED, WEAKNESS TO RIGHT SIDE OF BODY. TECHNIQUE: AP COMPARISON: 07/31/2021 FINDINGS: There are patchy reticular and groundglass opacities in the lung bases, new. There is no demonstrated pleural abnormality. Normal size heart. Normal mediastinum and josh. Normal visualized pulmonary arteries. There is atherosclerotic tortuosity of the aortic arch and descending thoracic aorta. Normal visualized thoracic spine. Normal visualized ribs, clavicles, and shoulders. There is no demonstrated abnormality of the visualized soft tissue structures of the upper abdomen. RAD/Chest 1 View (Portable) IMPRESSION: Multifocal infiltrates with features commonly reported with COVID pneumonia. Electronically Signed: Leonel Dennis MD (Brooks) at 22:02 EDT , Service support ,
[2021-08-10 22:05] LABS: D-Dimer Quantitative (DVT/PE) 0.36 FEU/ug/m (0.27-0.49)
--- NOTE | 2021-08-10 22:16 | ECHOD_ITS ---
Reason For Study: CVA Procedure This was a 2D Doppler, Color Flow transthoracic echocardiogram. Exam performed portable in patient room. The exam was abbreviated due to the COVID 19 protocol. Left Ventricle Normal LV size. Left ventricular systolic function is normal. The estimated ejection fraction is 60 %. No regional wall motion abnormalities noted. Right Ventricle Normal RV size. Normal systolic function. Atria Normal left atrium. Normal right atrium. Mitral Valve Normal mitral valve. Tricuspid Valve Normal tricuspid valve. Mild tricuspid valve insufficiency. Aortic Valve Trisinus/trileaflet aortic valve. Mild focal aortic valve calcification. Pulmonic Valve Normal pulmonic valve. Great Vessels Mildly dilated aortic root. The pulmonary artery is normal size. Normal inferior vena cava. Pericardium/Pleural No pericardial effusion. MMode/2D Measurements & Calculations LVIDd: 4.7 cm IVSd: 1.4 cm Ao root diam: 3.8 cm LVIDs: 2.9 cm LVPWd: 0.91 cm RVDd: 3.6 cm FS: 38.2 % LAV(MOD-bp): 47.1 ml LA A4 area: 14.8 cm2 LA dimension(2D): 3.3 cm LAV(MOD-bp) Indexed: 24.4 ml/m2 LAV(MOD-sp2): 58.6 ml LAV(MOD-sp4): 36.8 ml RA A4 area: 19.9 cm2 Doppler Measurements & Calculations Ao V2 max: 146.4 cm/sec LV V1 max: 92.7 cm/sec PA V2 max: 111.5 cm/sec Ao max P.6 mmHg LV V1 max P.4 mmHg TR max kal: 196.3 cm/sec TR max P.5 mmHg ECHO/Echo Complete Interpretation Summary Normal LV size. Left ventricular systolic function is normal. The estimated ejection fraction is 60 %. Structurally normal valves. Ordering Physician: Nicki Erazo Referring Physician: TAMMIE PCP Performed By: Henna aCrmichael, FLORENCIO, RVT
--- NOTE | 2021-08-10 22:31 | PCS.PANDOC ---
PANDEMIC DOCUMENTATION INITIATED: Date: 06/03/2021 Time: 190
[2021-08-10] MEDS: Acetaminophen 325 MG Tablet 650 MG PO (22:42)
[2021-08-10 22:47] LABS: BNP,B-Type NATRIURETIC PEPTIDE 75.1 pg/mL (0-100)
[2021-08-10 22:50] LABS: CRP 5.52 mg/L (0.0-3.0); Ferritin 576 ng/mL (26-388); LDH 284 U/L (87-241); Magnesium 2.1 mg/dL (1.6-2.6)
[2021-08-10] MEDS: Enoxaparin 30 MG/0.3 ML Syringe SC (23:01)
[2021-08-10] MEDS: Atorvastatin Calcium 80 MG Tablet PO (23:01)
[2021-08-10] MEDS: TICAGRELOR 90 MG TABLET PO (23:01)
[2021-08-10] MEDS: Colchicine 0.6 MG TABLET PO (23:01)
[2021-08-10] MEDS: 0.9% Normal Saline 1,000 ML 100 ML IV (23:02)
[2021-08-10 23:49] LABS: Procalcitonin < 0.04 ng/mL (0.00-0.09)
[2021-08-11] VITALS (12 sets, daily range): BP systolic 107–136; BP diastolic 57–86; PULSE 40–66; RESP 14–18; TEMP 35.5–37; O2SAT 93–99; BMI 24.4
[2021-08-11 07:25] LABS: Absolute Lymphocyte Count 3.43 X10^3/uL (0.83-4.51); Absolute Neutrophil Count 6.3 X10^3/uL (2.0-7.7); Basophil# 0.03 X10^3/uL; Basophil% 0.3 % (0-1); Eosinophil# 0.08 X10^3/uL; Eosinophils% 0.7 % (0-5); Hematocrit 40.6 % (40-54); Lymphocyte # 3.43 X10^3/ul (0.83-4.51); Lymphocyte % 31.2 % (19-41); Mean Corp Hgb Conc 34.5 g/dL (32-36); Mean Corpuscular Hgb 32.5 pg (27.0-32.0); Mean Corpuscular Volume 94.2 fL (80-94); Mean Platelet Vol. 9.9 fl (6.2-12.0); Monocyte# 1.02 X10^3/uL; Monocyte% 9.3 % (0-10); NRBC Flagged by Analyzer 0 % (0-5); Neutrophil % 57.3 % (47-70); POSITIVE MORPHOLOGY YES; Platelet Count 275 K/mm3 (150-450); RBC Distribution Width CV 12.9 % (11.6-14.6); RBC Distribution Width SD 44.5 fl (35.1-43.9); Red Blood Count 4.31 M/mm3 (4.6-6.2)
[2021-08-11 07:31] LABS: Differential Indicated SCAN CRITERIA MET
[2021-08-11 07:41] LABS: Hemoglobin A1c 5.6 % (3.8-5.6)
[2021-08-11 07:55] LABS: ALB/GLOB Ratio 0.7 RATIO (0.9-2.4); AST(SGOT) 25 U/L (15-37); Alanine Aminotransfer ALT/SGPT 53 U/L (16-61); Albumin, Serum 2.4 g/dL (3.2-5.0); Alkaline Phosphatase 56 U/L (45-117); Anion Gap 6 (5-15); BUN 14 mg/dL (7-18); BUN/Creat Ratio 16.7 RATIO (10-20); Chloride 111 mmol/L (98-107); Cholesterol 150 mg/dL (200); Creatinine, Serum 0.84 mg/dL (0.70-1.30); EST Glomerular Filtration Rate 98 mL/min (>60); Est Glom Filt Rate - Afr Amer 119 mL/min (>60); Estimated Creatinine Clearance 90.35 ml/min; Globulin 3.3 g/dL (2.2-4.2); Glucose 78 mg/dL (74-106); High Density Lipoprotein 34 mg/dL; Potassium 3.6 mmol/L (3.5-5.1); Protein, Total 5.7 g/dL (6.4-8.2); Sodium Level 143 mmol/L (136-145); Triglycerides 179 mg/dL; Very Low Density Lipoprotein 36 mg/dL (5-40)
[2021-08-11 08:43] LABS: Differential Comment SCANNED
--- NOTE | 2021-08-11 08:57 | EKG12_ITS ---
Test Reason : Blood Pressure : / mmHG Vent. Rate : 053 BPM Atrial Rate : 053 BPM P-R Int : 156 ms QRS Dur : 088 ms QT Int : 452 ms P-R-T Axes : 044 018 -36 degrees QTc Int : 424 ms Sinus bradycardia Inferior infarct , age undetermined T-wave abnormality, consider inferior ischemia Abnormal ECG Confirmed by NAKUL COLLINS, RENO ([id number]), communications editor ELLIOTT TRACEY ([id number]) on 08/14/2021 9:35:40 AM Referred By: ROSANNA Confirmed By:RENO MOTA MD
[2021-08-11 10:08] LABS: Troponin-I HS 2171 pg/mL (3.0-78.0)
--- NOTE | 2021-08-11 10:53 | PN.HOSP_ITS ---
Subjective Subjective Patient seen and examined. He was admitted with a complaint of weakness and generalized malaise as well as poor oral intake and transient right upper and lower extremity weakness and difficulty with balance. Patient was diagnosed on 07/31/2021 with COVID-19 infection after he presented at that time with a 3 to 4-day history of cough, fever and generalized malaise. He was discharged home then on Decadron and referred for monoclonal antibody treatment. Chest x-ray during this current admission showed multifocal bilateral infiltrates consistent with Covid and CT of the head was negative for any acute findings. Per admitting note, he was admitted to be managed for acute bilateral pneumonia due to acute COVID-19 infection and acute metabolic encephalopathy probably due to Covid as well as right-sided weakness and imbalance with concerns for CVA. Patient seen and examined this morning. He felt well and had no complaints. He was alert but had brief episodes of confusion during my review. He denied any weakness in any extremity, any numbness or tingling or mouth droop. Review of symptoms otherwise negative. I was subsequently informed the patient was complaining of chest pain which she rated at 5 out of 10. EKG done showed mild T wave inversions in the lateral leads. Troponin series ordered. He has otherwise remained hemodynamically stable. Objective Data Objective Data Vital Signs: Vital Signs Temp Pulse Resp BP Pulse Ox 97.8 F 50 L 18 120/70 97 08/11/21 08:41 08/11/21 08:41 08/11/21 08:41 08/11/21 08:41 08/11/21 08:41 Oxygen Delivery Method Room Air Weight: 158 lb 8.198 oz Body Mass Index (BMI) 24.4 Intake & Output: Intake and Output for Last 24 Hours 08/09/21 08/10/21 08/11/21 23:59 23:59 23:59 Intake Total 1000 / 1000 Output Total 200 / 200 Balance 800 / 800 Lab / Micro Data Result Diagrams: 08/11/21 06:59 08/11/21 06:59 Labs: Laboratory Results - last 24 hr 08/10/21 16:50: WBC 17.5 H, RBC 4.78, Hgb 15.3, Hct 45.0, MCV 94.1 H, MCH 32.0, MCHC 34.0, RDW Std Deviation 43.9, RDW Coeff of Julita 12.7, Plt Count 337, MPV 10.3, Immature Gran % (Auto) 1.100 H, Neut % (Auto) 64.8, Lymph % (Auto) 24.2, [place] % (Auto) 9.1, Eos % (Auto) 0.5, Baso % (Auto) 0.3, Absolute Neuts (auto) 11.3 H, Absolute Lymphs (auto) 4.25, Nucleated RBC % 0, Differential Comment 08/10/21 16:50: Sodium 144, Potassium 3.5, Chloride 108 H, Carbon Dioxide 30.0, Anion Gap 6, BUN 15, Creatinine 1.12, Estim Creat Clear Calc 69.37, Est GFR (MDRD) Af Amer 85, Est GFR (MDRD) Non-Af 70, BUN/Creatinine Ratio 13.4, Glucose 96, Calcium 9.5, Total Bilirubin 0.40, AST 30, ALT 67 H, Alkaline Phosphatase 66, Total Protein 6.7, Albumin 2.9 L, Globulin 3.8, Albumin/Globulin Ratio 0.8 L 08/10/21 16:50: D-Dimer Quant (PE/DVT) 0.36 08/10/21 16:50: Magnesium 2.1, Ferritin 576 H, Lactate Dehydrogenase 284 H, C- React Prot Ext Range 5.52 H 08/10/21 16:50: B-Natriuretic Peptide 75.1 08/10/21 17:15: Lactic Acid 1.1 08/10/21 19:10: Urine Color Yellow, Urine Clarity Clear, Urine pH 6.5, Ur Specific [place] 1.015, Urine Protein 15 H, Urine Glucose (UA) Normal, Urine Ketones Negative, Urine Occult Blood Negative, Urine Nitrite Negative, Urine Bilirubin Negative, Urine Urobilinogen 1 H, Ur Leukocyte Esterase Negative, Urine RBC 0 SEEN, Urine WBC 0 SEEN, Ur Squamous Epith Cells 0 SEEN, Urine Bacteria RARE, Urine Mucus 0 SEEN 08/10/21 22:45: Procalcitonin < 0.04 08/11/21 06:59: WBC 11.0, RBC 4.31 L, Hgb 14.0, Hct 40.6, MCV 94.2 H, MCH 32.5 H , MCHC 34.5, RDW Std Deviation 44.5 H, RDW Coeff of Julita 12.9, Plt Count 275, MPV 9.9, Immature Gran % (Auto) 1.200 H, Neut % (Auto) 57.3, Lymph % (Auto) 31.2, [place] % (Auto) 9.3, Eos % (Auto) 0.7, Baso % (Auto) 0.3, Absolute Neuts (auto) 6.3, Absolute Lymphs (auto) 3.43, Nucleated RBC % 0, Differential Comment SCANNED 08/11/21 06:59: Sodium 143, Potassium 3.6, Chloride 111 H, Carbon Dioxide 26.0, Anion Gap 6, BUN 14, Creatinine 0.84, Estim Creat Clear Calc 90.35, Est GFR (MDRD) Af Amer 119, Est GFR (MDRD) Non-Af 98, BUN/Creatinine Ratio 16.7, Glucose 78, Calcium 8.0 L, Total Bilirubin 0.60, AST 25, ALT 53, Alkaline Phosphatase 56, Total Protein 5.7 L, Albumin 2.4 L, Globulin 3.3, Albumin/Globulin Ratio 0.7 L, Triglycerides 179, Cholesterol 150, LDL Cholesterol 80, VLDL Cholesterol 36, HDL Cholesterol 34 L, TSH 1.10 08/11/21 06:59: Hemoglobin A1c 5.6 08/11/21 09:38: Troponin I High Sens 2171 H* Micro: Microbiology 08/10/21 22:48 Mucosa - Nasopharyngeal Respiratory Panel (PCR) - Final 08/10/21 19:10 Urine, Clean Catch Legionella Antigen - Final 08/10/21 19:10 Urine, Clean Catch Streptococcus pneumoniae Antigen (M - Final Radiography Diagnostic Testing: Radiology Impression Brain CT 08/10/21 17:06 IMPRESSION: No acute findings in the head/brain. Electronically Signed: Leonel Dennis MD (Brooks) at 17:39 EDT , Service support , Chest X-Ray 08/10/21 21:21 IMPRESSION: Multifocal infiltrates with features commonly reported with COVID pneumonia. Electronically Signed: Leonel Dennis MD (Brooks) at 22:02 EDT , Service support , Physical Exam Const alert and no apparent distress Exam Limitations: no limitations HEENT head/scalp atraumatic and moist oral mucous membranes Head and Scalp: normocephalic Eyes PERRL and EOMs intact bilaterally Neck no lymphadenopathy Resp normal respiratory effort, no retractions, no use of accessory muscles and clear to auscultation bilaterally Cardio regular rate, regular rhythm, S1 normal heart sound, S2 normal heart sound and no murmurs GI normal to inspection, nondistended, normoactive bowel sounds, soft to palpation, non-tender and non-distended Extremity normal to inspection, full ROM and no clubbing, cyanosis or edema Peripheral Pulses: Yes pulses 2+ throughout Skin no rashes or lesions noted Neuro CN's II-XII intact bilaterally and moves all extremities Sensorium / Orientation: awake and alert Psych affect normal Assessment & Plan Assessment/Plan (1) Acute delirium: (2) Pneumonia due to COVID-19 virus: (3) COVID-19: (4) Encephalopathy acute: (5) Non-STEMI (non-ST elevated myocardial infarction): PLAN: #NOnstemi * Patient complained of chest pain today. EKG done showed no T wave inversions in lateral leads. * Initial troponin done was markedly elevated at 2171. * Patient already on aspirin and Brilinta as well as high intensity statin. Will put on therapeutic Lovenox. * 2D echo ordered and cardiology consulted. * Sublingual nitroglycerin as needed. * #Acute COVID-19 pneumonia with suspected superimposed bacterial pneumonia * Patient currently on room air and not short of breath. * Breathing treatments of bronchodilators. Titrate oxygen to maintain saturation above 90%. * * #Acute metabolic encephalopathy * Patient apparently had transient right-sided upper and lower extremity weakness as well as altered speech and imbalance which was concerning for CVA. * CT of the brain was negative for any acute intracranial pathology. * MRI of the brain as well as MRA head and neck pending. * 2D echo also ordered. * PT OT on board. Fall precautions. Encephalopathy has largely resolved. * #Bradycardia * Heart rate is 50. Has been between 40 and 59 since admission. * On metoprolol. Will hold metoprolol due to bradycardia. #CAD s/p PCI: On aspirin, Brilinta and statin. Metoprolol and lisinopril resumed. #Hyperlipidemia: On statin #GERD: On PPI DVT prophylaxis: Not indicated as patient is currently on therapeutic Lovenox on account of non-STEMI. Charges/Coding Visit Charges Inpatient E&M: 16340 Subs Hosp L3
--- NOTE | 2021-08-11 11:00 | MRI_ITS ---
STUDY: MRI BRAIN WITHOUT CONTRAST REASON FOR EXAM: Male, 66 years old. CVA, confusion, rt sided weakness, COVID TECHNIQUE: Standardized multiplanar fat and water weighted pulse sequences were obtained. COMPARISON: CT 08/10/2021 FINDINGS: There is mild cerebral atrophy with widening of the extra-axial spaces and ventricular dilatation. There are a limited number of small white matter hyperintensities, distributed throughout the deep white matter tracts of the cerebral hemispheres, consistent with mild chronic white matter ischemic changes. Hyperintensity the posterior left parietal lobe demonstrates restricted diffusion consistent with an acute/subacute infarct. There are punctate areas of restricted diffusion along the medial edge of the left middle cerebral artery territory throughout the left parietal lobe and findings may represent a watershed infarct from cardiac arrest. Clinical correlation is recommended. Normal T2* images of the brain without demonstrated susceptibility artifact. There is no demonstrated hemosiderin stain. Normal bilateral basal ganglia. Normal thalami. There is no extra-axial fluid accumulation. Normal flow voids within the major intracranial circulation suggesting patency by spin echo criteria. Normal sella turcica, pituitary gland, infundibular stalk, optic chiasm and hypothalamus. Normal tectal plate and pineal gland. Normal midbrain, pinky and medulla. Normal cerebellum. Normal basal cisterns. Normal bilateral temporal bones. Normal bilateral internal auditory canals. No demonstrated orbital abnormality, within the constraints of a routine brain study. Normal visualized paranasal sinuses. Normal calvarium and skull base. Normal visualized soft tissue structures. Normal visualized upper cervical spine. MRI/Brain without Contrast IMPRESSION: Acute/subacute left parietal lobe infarct which may represent watershed infarcts from hypoperfusion as in cardiac arrest. Clinical correlation is recommended. Electronically Signed: Jayme Hercules MD at 14:47 EDT Tel , Service support ,
--- NOTE | 2021-08-11 11:00 | MRI_ITS ---
STUDY: MRA OF THE HEAD WITHOUT CONTRAST REASON FOR EXAM: Male, 66 years old. CVA confusion and right-sided weakness Covid TECHNIQUE: 3-D [id number] (TOF) imaging was performed with MIPs. The study was performed unenhanced. COMPARISON: None. FINDINGS: Bilateral base of skull carotids, bifurcations, anterior and middle cerebral arteries and proximal branches are patent. Posterior communicating arteries are probably small on the right and not well seen on the left. Posterior cerebral arteries and superior cerebellar arteries and proximal branches are patent. Vertebral arteries, basilar arteries are patent. MRI/MRA Head ONLY without Contrast IMPRESSION: 1. Unremarkable [place] of [place] and proximal branches. Electronically Signed: Macho Chen MD at 14:26 EDT Tel , Service support ,
--- NOTE | 2021-08-11 11:00 | MRI_ITS ---
STUDY: MRA NECK WITHOUT CONTRAST REASON FOR EXAM: Male, 66 years old. CVA, confusion, rt sided weakness, COVID TECHNIQUE: Source images were obtained, MIPs were performed. The study was performed unenhanced. COMPARISON: None. FINDINGS: RIGHT CAROTID ARTERIES: Normal right common carotid artery (CCA). Normal right common carotid bulb. Complete signal loss within the proximal right internal carotid artery worrisome for a critical (99%) stenosis or occlusion. Correlation with conventional angiography is recommended. Normal visualized cervical portion of the right internal carotid artery. Normal origin of the right external carotid artery (ECA). LEFT CAROTID ARTERIES: Normal left common carotid artery (CCA). Normal left common carotid bulb. Normal origin of the left internal carotid (ICA) artery without a hemodynamically significant stenosis. Normal visualized cervical portion of the left internal carotid artery. Normal origin of the left external carotid artery (ECA). VERTEBRAL ARTERIES: Normal antegrade flow within the bilateral vertebral artery without a hemodynamically significant stenosis. MRI/MRA Neck without Contrast IMPRESSION: 1. Critical (99%) stenosis or occlusion of the proximal right internal carotid artery. Correlation with conventional angiography is recommended for confirmation. 2. No left carotid stenosis. 3. Patent vertebral arteries bilaterally. Electronically Signed: Jayme Hercules MD at 14:50 EDT Tel , Service support ,
[2021-08-11] MEDS: Colchicine 0.6 MG TABLET PO (11:08)
[2021-08-11] MEDS: Aspirin E.C. 81 MG Tablet PO (11:08)
[2021-08-11] MEDS: Indomethacin 25 MG Capsule PO (11:08)
[2021-08-11] MEDS: Pantoprazole Sodium 40 MG Tablet PO (11:09)
[2021-08-11] MEDS: TICAGRELOR 90 MG TABLET PO (11:09)
[2021-08-11 12:04] LABS: Troponin-I HS 2181 pg/mL (3.0-78.0)
--- NOTE | 2021-08-11 12:15 | CON.PCM.CA_ITS ---
Assessment & Plan Assessment/Plan (1) Non-STEMI (non-ST elevated myocardial infarction): PLAN: He does have a history of coronary artery disease and now presents with delirium and confusion and is noted to have elevated cardiac enzymes. * The pattern of the above at the moment does not appear to be following a rise and fall pattern and may not be an acute event. Will monitor other troponins * Will obtain limited echocardiogram to assess ventricular function. His previous ejection fraction a year ago was noted to be 50 to 55% * Depending on those findings as well as the findings of the head MRI further recommendations will be made. * Any return to the cardiac catheterization lab would need to be evaluated in the context of possibly giving a GP23A inhibitor which may worsen any strokelike symptoms. * He does not require at this time any further colchicine or indomethacin. * Will hold off on therapeutic dose Lovenox until MRI cleared (2) Stented coronary artery: PLAN: He previously had a right coronary artery stent with mild disease noted in the left anterior descending artery and circumflex coronary artery * He will continue with the risk factor modification with aspirin and Brilinta * Continue high intensity statin * Low-dose beta-bakari as tolerated * MERON inhibitor * * Thank you for allowing me to participate in the care of your patient. Please don't hesitate to call if any issues arise. HPI Consult Data Date of Consult: 08/12/21 HPI Narrative HPI Narrative: ALANA GONGORA, is a 66 M who presented to the emergency room yesterday with a history of generalized weakness as well as mild confusion. He had presented 2 weeks earlier with signs and symptoms of COVID-19 infection after having not received the vaccination. He was being treated with outpatient dexamethasone as well as antibiotics for pneumonia. This morning he had complained of some chest discomfort and was noted to have abnormal EKG with T wave inversions in the inferior leads. He currently is not having any chest pain. He had previously in 2020 sustained an inferior wall myocardial infarction with a totally occluded right coronary artery for which he underwent angioplasty and stenting. Moderate nonobstructive disease was noted in the c ircumflex artery as well as the left anterior descending artery. He had been free of any chest discomfort since. He has had no dizziness or diaphoresis near syncope or syncope. 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 This was supposed to be on a short course and he was supposed to follow-up with cardiology which he never did over a year ago. COUNTS INCLUDE 234 BEDS AT THE [facility] Medical History Arteriosclerosis of coronary artery in patient with history of myocardial infarction Community acquired pneumonia History of stroke Hyperlipidemia STEMI (ST elevation myocardial infarction) Tobacco abuse Home Medications aspirin 81 mg PO DAILY@0800 #30 tab 04/30/20 [Rx Last Taken Unknown] atorvastatin 80 mg PO QHS #30 tab 04/30/20 [Rx Last Taken Unknown] colchicine 0.6 mg PO BID #6 tab 04/30/20 [Rx Last Taken Unknown] indomethacin 25 mg PO TIDCM #21 cap 04/30/20 [Rx Last Taken Unknown] levofloxacin 500 mg PO DAILY #5 tab 04/30/20 [Rx Last Taken Unknown] lisinopril 2.5 mg PO DAILY #30 tab 04/30/20 [Rx Last Taken Unknown] metoprolol tartrate 12.5 mg PO BID #60 tab 04/30/20 [Rx Last Taken Unknown] nitroglycerin 0.4 mg SUBLINGUAL Q5M PRN #30 tab.subl 04/30/20 [Rx Last Taken Unknown] pantoprazole 40 mg PO DAILY #30 tab 04/30/20 [Rx Last Taken Unknown] Brilinta 90 mg tablet 90 mg PO BID #180 tab NS 05/08/20 [Rx Last Taken Unknown] dexamethasone [Decadron] 6 mg PO DAILY #10 tab 07/31/21 [Rx Last Taken Unknown] ondansetron 4 mg PO Q8H PRN #10 tab 07/31/21 [Rx Last Taken Unknown] Allergy/AdvReac Type Severity Reaction Status Date / Time BEES Allergy Anaphylaxis Uncoded 04/28/20 11:38 Family History Mother CVA (cerebral vascular accident) Hypertension Father CVA (cerebral vascular accident) Hypertension Surgical History Stented coronary artery (04/28/20) Social History household members: none housing: apartment pets and animals: No Smoking Status: Current every day smoker tobacco type: cigarettes Smoking packs per day: 1 Smoking cigarettes per day: 20.0 alcohol intake: current alcohol intake frequency: a few times a month substance use type: does not use ROS Constitutional Constitutional: Denies fever(s) or weight loss Eyes Eyes: Reports systems reviewed and no addt'l complaints, except as documented ENT HEENT: Reports systems reviewed and no addt'l complaints, except as documented Cardiovascular Cardiovascular: Reports chest pain at rest; Denies dyspnea at rest, dyspnea on exertion, edema, palpitations or paroxysmal nocturnal dyspnea Respiratory/Chest Respiratory/Chest: Denies dyspnea on exertion, productive cough, shortness of breath at rest or shortness of breath with exertion Gastrointestinal Gastrointestinal: Denies change in bowel habits, nausea, vomiting or weight changes Genitourinary Genitourinary: Denies difficulty urinating Musculoskeletal Musculoskeletal: Denies joint stiffness or muscle weakness Integumentary Integumentary: Denies lesions Neurologic Neurologic: Denies dizziness or syncope Psychiatric Psychiatric: Denies anxiety Endocrine Endocrinology: Denies excessive sweating or fatigue Hematologic/Lymphatic Hematologic/Lymphatic: Denies anemia Allergic/Immunologic Allergic/Immunologic: Denies seasonal rhinorrhea Physical Exam Const alert, oriented x3 and no apparent distress General Appearance: cooperative HEENT hearing grossly normal bilaterally Head and Scalp: atraumatic Eyes EOMs intact bilaterally Neck General: normal visual inspection Chest inspection of chest normal and palpation of chest normal Resp normal respiratory effort Auscultation: clear to auscultation bilaterally Cardio regular rate, regular rhythm, S1 normal heart sound and S2 normal heart sound Jugular Venous Distention: JVD GI normal to inspection, nondistended, normoactive bowel sounds Extremity normal capillary refill and no pedal edema Peripheral Pulses: Yes pulses 2+ throughout and femoral pulses present Skin no rashes or lesions noted Neuro oriented x3 and CN's II-XII intact bilaterally Psych Appearance: grossly normal and appropriate Risk Stratification Risk Stratification Applicable: Yes Age >/= 65: No >/= 3 CAD Risk Factors (HTN, HLD, DM, family hx of CAD, or current smoker): Yes Aspirin Use in the Past 7 Days: Yes Severe Angina (>/= episodes in 24 hours): No EKG ST Changes >/= 0.5mm: Yes Positive Cardiac Marker: Yes MERYL Risk Stratification Score: 4 MERYL % Risk: 20% Risk Objective Data Vital Signs: Vital Signs Temp Pulse Resp BP Pulse Ox 97.8 F 50 L 18 120/70 97 08/11/21 08:41 08/11/21 08:41 08/11/21 08:41 08/11/21 08:41 08/11/21 08:41 Oxygen Delivery Method Room Air Weight: 158 lb 8.198 oz Body Mass Index (BMI) 24.4 Intake & Output: Intake and Output for Last 24 Hours 08/09/21 08/10/21 08/11/21 23:59 23:59 23:59 Intake Total 1000 / 1000 Output Total 200 / 200 Balance 800 / 800 Lab / Micro Data Result Diagrams: 08/12/21 06:44 08/12/21 06:44 Labs: Laboratory Results - last 24 hr 08/10/21 16:50: WBC 17.5 H, RBC 4.78, Hgb 15.3, Hct 45.0, MCV 94.1 H, MCH 32.0, MCHC 34.0, RDW Std Deviation 43.9, RDW Coeff of [place] 12.7, Plt Count 337, MPV 10.3, Immature Gran % (Auto) 1.100 H, Neut % (Auto) 64.8, Lymph % (Auto) 24.2, [place] % (Auto) 9.1, Eos % (Auto) 0.5, Baso % (Auto) 0.3, Absolute Neuts (auto) 11.3 H, Absolute Lymphs (auto) 4.25, Nucleated RBC % 0, Differential Comment 08/10/21 16:50: Sodium 144, Potassium 3.5, Chloride 108 H, Carbon Dioxide 30.0, Anion Gap 6, BUN 15, Creatinine 1.12, Estim Creat Clear Calc 69.37, Est GFR (MDRD) Af Amer 85, Est GFR (MDRD) Non-Af 70, BUN/Creatinine Ratio 13.4, Glucose 96, Calcium 9.5, Total Bilirubin 0.40, AST 30, ALT 67 H, Alkaline Phosphatase 66, Total Protein 6.7, Albumin 2.9 L, Globulin 3.8, Albumin/Globulin Ratio 0.8 L 08/10/21 16:50: D-Dimer Quant (PE/DVT) 0.36 08/10/21 16:50: Magnesium 2.1, Ferritin 576 H, Lactate Dehydrogenase 284 H, C- React Prot Ext Range 5.52 H 08/10/21 16:50: B-Natriuretic Peptide 75.1 08/10/21 17:15: Lactic Acid 1.1 08/10/21 19:10: Urine Color Yellow, Urine Clarity Clear, Urine pH 6.5, Ur Specific [place] 1.015, Urine Protein 15 H, Urine Glucose (UA) Normal, Urine Ketones Negative, Urine Occult Blood Negative, Urine Nitrite Negative, Urine Bilirubin Negative, Urine Urobilinogen 1 H, Ur Leukocyte Esterase Negative, Urine RBC 0 SEEN, Urine WBC 0 SEEN, Ur Squamous Epith Cells 0 SEEN, Urine Bacteria RARE, Urine Mucus 0 SEEN 08/10/21 22:45: Procalcitonin < 0.04 08/11/21 06:59: WBC 11.0, RBC 4.31 L, Hgb 14.0, Hct 40.6, MCV 94.2 H, MCH 32.5 H , MCHC 34.5, RDW Std Deviation 44.5 H, RDW Coeff of [place] 12.9, Plt Count 275, MPV 9.9, Immature Gran % (Auto) 1.200 H, Neut % (Auto) 57.3, Lymph % (Auto) 31.2, [place] % (Auto) 9.3, Eos % (Auto) 0.7, Baso % (Auto) 0.3, Absolute Neuts (auto) 6.3, Absolute Lymphs (auto) 3.43, Nucleated RBC % 0, Differential Comment SCANNED 08/11/21 06:59: Sodium 143, Potassium 3.6, Chloride 111 H, Carbon Dioxide 26.0, Anion Gap 6, BUN 14, Creatinine 0.84, Estim Creat Clear Calc 90.35, Est GFR (MDRD) Af Amer 119, Est GFR (MDRD) Non-Af 98, BUN/Creatinine Ratio 16.7, Glucose 78, Calcium 8.0 L, Total Bilirubin 0.60, AST 25, ALT 53, Alkaline Phosphatase 56, Total Protein 5.7 L, Albumin 2.4 L, Globulin 3.3, Albumin/Globulin Ratio 0.7 L, Triglycerides 179, Cholesterol 150, LDL Cholesterol 80, VLDL Cholesterol 36, HDL Cholesterol 34 L, TSH 1.10 08/11/21 06:59: Hemoglobin A1c 5.6 08/11/21 09:38: Troponin I High Sens 2171 H* 08/11/21 11:30: Troponin I High Sens 2181 H* Micro: Microbiology 08/10/21 22:48 Mucosa - Nasopharyngeal Respiratory Panel (PCR) - Final 08/10/21 19:10 Urine, Clean Catch Legionella Antigen - Final 08/10/21 19:10 Urine, Clean Catch Streptococcus pneumoniae Antigen (M - Final Cardiology Labs/Tests 08/10/21 16:50: WBC 17.5 H, RBC 4.78, Hgb 15.3, Hct 45.0, MCV 94.1 H, MCH 32.0, MCHC 34.0, Plt Count 337, MPV 10.3, Immature Gran % (Auto) 1.100 H, Neut % (Auto) 64.8, Lymph % (Auto) 24.2, [place] % (Auto) 9.1, Eos % (Auto) 0.5, Baso % (Auto) 0.3, Absolute Neuts (auto) 11.3 H, Nucleated RBC % 0 08/10/21 16:50: Sodium 144, Potassium 3.5, Chloride 108 H, Carbon Dioxide 30.0, Anion Gap 6, BUN 15, Creatinine 1.12, Est GFR (MDRD) Af Amer 85, Est GFR (MDRD) Non-Af 70, BUN/Creatinine Ratio 13.4, Glucose 96, Calcium 9.5, Total Bilirubin 0.40 08/10/21 16:50: D-Dimer Quant (PE/DVT) 0.36 08/10/21 16:50: Magnesium 2.1, Ferritin 576 H 08/10/21 16:50: B-Natriuretic Peptide 75.1 08/10/21 17:15: Lactic Acid 1.1 08/10/21 19:10: Urine Color Yellow, Urine Clarity Clear, Urine pH 6.5, Ur Specific [place] 1.015, Urine Protein 15 H, Urine Glucose (UA) Normal, Urine Ketones Negative, Urine Occult Blood Negative, Urine Nitrite Negative, Urine Bilirubin Negative, Urine Urobilinogen 1 H, Ur Leukocyte Esterase Negative, Urine RBC 0 SEEN, Urine WBC 0 SEEN 08/11/21 06:59: WBC 11.0, RBC 4.31 L, Hgb 14.0, Hct 40.6, MCV 94.2 H, MCH 32.5 H , MCHC 34.5, Plt Count 275, MPV 9.9, Immature Gran % (Auto) 1.200 H, Neut % (Auto) 57.3, Lymph % (Auto) 31.2, [place] % (Auto) 9.3, Eos % (Auto) 0.7, Baso % (Auto) 0.3, Absolute Neuts (auto) 6.3, Nucleated RBC % 0 08/11/21 06:59: Sodium 143, Potassium 3.6, Chloride 111 H, Carbon Dioxide 26.0, Anion Gap 6, BUN 14, Creatinine 0.84, Est GFR (MDRD) Af Amer 119, Est GFR (MDRD) Non-Af 98, BUN/Creatinine Ratio 16.7, Glucose 78, Calcium 8.0 L, Total Bilirubin 0.60, Triglycerides 179, Cholesterol 150, LDL Cholesterol 80, VLDL Cholesterol 3 6, HDL Cholesterol 34 L 08/11/21 06:59: Hemoglobin A1c 5.6 Rhythm: EKG: Normal sinus rhythm with T wave inversions noted in the inferior leads which is new from July 31 ECHO: Stress Test: Cardiac Cath: PCI: CT Surgery: Holter monitor: EPS: PPM: CXR: See below Chest CT Scan: Radiography Diagnostic Testing: Radiology Impression Brain CT 08/10/21 17:06 IMPRESSION: No acute findings in the head/brain. Electronically Signed: Leonel Dennis MD ([place]) at 17:39 EDT , Service support , Chest X-Ray 08/10/21 21:21 IMPRESSION: Multifocal infiltrates with features commonly reported with COVID pneumonia. Electronically Signed: Lenoel Dennis MD ([place]) at 22:02 EDT , Service support ,
[2021-08-11] MEDS: Lisinopril 2.5 MG Tablet PO (14:14)
--- NOTE | 2021-08-11 15:40 | TELEMED_ITS ---
[facility] Telemed has confirmed receipt of a request for visit. This document confirms receipt of the order initiating the consult. To find the results of the consultation, please view the patient's reports for the scanned Telemed Consult.
[2021-08-11 15:57] LABS: Troponin-I HS 2233 pg/mL (3.0-78.0)
[2021-08-11] MEDS: Atorvastatin Calcium 80 MG Tablet PO (21:48)
[2021-08-11] MEDS: Clopidogrel Bisulfate 75 MG Tablet PO (21:48)
[2021-08-12] VITALS (11 sets, daily range): BP systolic 99–122; BP diastolic 63–76; PULSE 46–70; RESP 16–18; TEMP 35.6–37; O2SAT 94–98; BMI 24.4
--- NOTE | 2021-08-12 05:00 | EKG12_ITS ---
Test Reason : AM EKG Blood Pressure : / mmHG Vent. Rate : 047 BPM Atrial Rate : 047 BPM P-R Int : 162 ms QRS Dur : 088 ms QT Int : 446 ms P-R-T Axes : 044 010 -54 degrees QTc Int : 394 ms Sinus bradycardia Inferior infarct , age undetermined Abnormal ECG Confirmed by NAKUL COLLINS, RENO ([id number]), digital editor ELLIOTT TRACEY ([id number]) on 08/14/2021 9:32:06 AM Referred By: ENRIQUE Confirmed By:RENO MOTA MD
--- NOTE | 2021-08-12 05:55 | CDU_ITS ---
Reason For Study: Carotid stenosis Rt. Velocities/BP Lt. Velocities/BP Prox CCA 112.5/13.4 cm/sec. Prox CCA 154/13.3 cm/sec. Mid CCA 96.9/16 cm/sec. Mid CCA 117.4/17 cm/sec. Dist CCA 60.4/12.1 cm/sec. Dist CCA 66.7/11.4 cm/sec. Prox ICA 59.1/12.1 cm/sec. Prox ICA 40.9/10.2 cm/sec. Mid ICA 68.4/25.6 cm/sec. Mid ICA 146.7/60.8 cm/sec. Dist ICA 71.8/28.9 cm/sec. Dist ICA 112/31.6 cm/sec. Rt. ICA/CCA = 0.74. Lt. ICA/CCA = 1.25. Prox ECA 82.5/6.9 cm/sec. Prox ECA 81.4/5.3 cm/sec. Rt. Vert. 46.5/12.4 cm/sec. Lt. Vert. 66.3/18.8 cm/sec. Right Extracranial There is homogeneous, smooth atherosclerotic plaque noted in the right common carotid artery. There is homogeneous, smooth atherosclerotic plaque noted in the right internal carotid artery. There is intimal thickening but no significant atherosclerotic plaque noted in the right external carotid artery. Antegrade flow is noted in the right vertebral artery. Left Extracranial There is homogeneous, smooth atherosclerotic plaque noted in the left common carotid artery. There is heterogeneous, irregular atherosclerotic plaque noted in the left internal carotid artery. There is homogeneous, smooth atherosclerotic plaque noted in the left external carotid artery. Antegrade flow is noted in the left vertebral artery. Procedure Carotid Duplex [id number]. This is a Carotid Duplex examination using B-mode, color flow and specral Doppler. Prelim to Becky DAVIES. Exam performed portable in patient room. VL/Carotid Duplex Ultrasound Interpretation Summary Smooth plague at the proximal right internal carotid with <50% stenosis <50% stenosis right external carotid Mild irregular plague at the proximal left internal carotid with 50-69% stenosi s <50% stenosis left external carotid Patent, antegrade vertebrals bilaterally Ordering Physician: Alexia Craft Performed By: Lilly Campoverde RVT
[2021-08-12 07:30] LABS: Bedside Glucose 97 mg/dL (70-110)
[2021-08-12 07:36] LABS: Absolute Lymphocyte Count 2.83 X10^3/uL (0.83-4.51); Absolute Neutrophil Count 5.3 X10^3/uL (2.0-7.7); Basophil# 0.03 X10^3/uL; Basophil% 0.3 % (0-1); Eosinophil# 0.12 X10^3/uL; Eosinophils% 1.3 % (0-5); Hematocrit 42.5 % (40-54); Hemoglobin 14.2 g/dL (13.0-16.5); Lymphocyte # 2.83 X10^3/ul (0.83-4.51); Lymphocyte % 30.4 % (19-41); Mean Corp Hgb Conc 33.4 g/dL (32-36); Mean Corpuscular Hgb 31.7 pg (27.0-32.0); Mean Corpuscular Volume 94.9 fL (80-94); Mean Platelet Vol. 10.2 fl (6.2-12.0); Monocyte# 0.88 X10^3/uL; Monocyte% 9.5 % (0-10); NRBC Flagged by Analyzer 0 % (0-5); Neutrophil # 5.32 X10^3/uL (2.7-7.7); Neutrophil % 57.2 % (47-70); Platelet Count 281 K/mm3 (150-450); RBC Distribution Width CV 12.8 % (11.6-14.6); RBC Distribution Width SD 44.2 fl (35.1-43.9); Red Blood Count 4.48 M/mm3 (4.6-6.2); White Blood Count 9.3 K/mm3 (4.4-11.0)
[2021-08-12 08:08] LABS: Anion Gap 6 (5-15); BUN 17 mg/dL (7-18); BUN/Creat Ratio 20.3 RATIO (10-20); Calcium,Total 8.4 mg/dL (8.5-10.1); Chloride 111 mmol/L (98-107); Creatinine, Serum 0.84 mg/dL (0.70-1.30); EST Glomerular Filtration Rate 98 mL/min (>60); Est Glom Filt Rate - Afr Amer 118 mL/min (>60); Estimated Creatinine Clearance 88.47 ml/min; Glucose 78 mg/dL (74-106); Potassium 3.8 mmol/L (3.5-5.1); Sodium Level 143 mmol/L (136-145)
--- NOTE | 2021-08-12 08:14 | PN.CARD_ITS ---
Subjective Subjective Patient seen and evaluated. Appears to be stable. No chest pain noted. Objective Data Vital Signs: Vital Signs Temp Pulse Resp BP Pulse Ox 97.5 F L 49 L 16 105/63 96 08/12/21 05:06 08/12/21 06:37 08/12/21 05:06 08/12/21 05:06 08/12/21 05:06 Oxygen Delivery Method Room Air Weight: 155 lb 3.287 oz Body Mass Index (BMI) 24.4 Intake & Output: Intake and Output for Last 24 Hours 08/10/21 08/11/21 08/12/21 23:59 23:59 23:59 Intake Total 1000 / 1880 880 / 880 Output Total 200 / 200 Balance 800 / 1680 880 / 880 Lab / Micro Data Result Diagrams: 08/12/21 06:44 08/12/21 06:44 Labs: Laboratory Results - last 24 hr 08/10/21 16:49: POC Glucose 97 08/11/21 06:59: Differential Comment SCANNED 08/11/21 09:38: Troponin I High Sens 2171 H* 08/11/21 11:30: Troponin I High Sens 2181 H* 08/11/21 14:50: COVID-19 (LONG) Not Detected 08/11/21 15:08: Troponin I High Sens 2233 H* 08/12/21 06:44: WBC 9.3, RBC 4.48 L, Hgb 14.2, Hct 42.5, MCV 94.9 H, MCH 31.7, MCHC 33.4, RDW Std Deviation 44.2 H, RDW Coeff of Julita 12.8, Plt Count 281, MPV 10.2, Immature Gran % (Auto) 1.300 H, Neut % (Auto) 57.2, Lymph % (Auto) 30.4, [place] % (Auto) 9.5, Eos % (Auto) 1.3, Baso % (Auto) 0.3, Absolute Neuts (auto) 5.3, Absolute Lymphs (auto) 2.83, Nucleated RBC % 0 08/12/21 06:44: Sodium 143, Potassium 3.8, Chloride 111 H, Carbon Dioxide 26.0, Anion Gap 6, BUN 17, Creatinine 0.84, Estim Creat Clear Calc 88.47, Est GFR (MDRD) Af Amer 118, Est GFR (MDRD) Non-Af 98, BUN/Creatinine Ratio 20.3 H, Glucose 78, Calcium 8.4 L Cardiology Labs/Tests 08/12/21 06:44: WBC 9.3, RBC 4.48 L, Hgb 14.2, Hct 42.5, MCV 94.9 H, MCH 31.7, MCHC 33.4, Plt Count 281, MPV 10.2, Immature Gran % (Auto) 1.300 H, Neut % (Auto) 57.2, Lymph % (Auto) 30.4, [place] % (Auto) 9.5, Eos % (Auto) 1.3, Baso % (Auto) 0.3, Absolute Neuts (auto) 5.3, Nucleated RBC % 0 08/12/21 06:44: Sodium 143, Potassium 3.8, Chloride 111 H, Carbon Dioxide 26.0, Anion Gap 6, BUN 17, Creatinine 0.84, Est GFR (MDRD) Af Amer 118, Est GFR (MDRD) Non-Af 98, BUN/Creatinine Ratio 20.3 H, Glucose 78, Calcium 8.4 L Rhythm: EKG: ECHO: Stress Test: Cardiac Cath: PCI: CT Surgery: Holter monitor: EPS: PPM: CXR: Chest CT Scan: Radiography Diagnostic Testing: Radiology Impression Brain MRI 08/11/21 11:00 IMPRESSION: Acute/subacute left parietal lobe infarct which may represent watershed infarcts from hypoperfusion as in cardiac arrest. Clinical correlation is recommended. Electronically Signed: Jayme Hercules MD at 14:47 EDT Tel , Service support , Head MRA 08/11/21 11:00 IMPRESSION: 1. Unremarkable [place] and proximal branches. Electronically Signed: Macho Chen MD at 14:26 EDT Tel , Service support , Neck MRA 08/11/21 11:00 IMPRESSION: 1. Critical (99%) stenosis or occlusion of the proximal right internal carotid artery. Correlation with conventional angiography is recommended for confirmation. 2. No left carotid stenosis. 3. Patent vertebral arteries bilaterally. Electronically Signed: Jayme Hercules MD at 14:50 EDT Tel , Service support , Physical Exam Const alert, oriented x3 and no apparent distress General Appearance: cooperative HEENT hearing grossly normal bilaterally Head and Scalp: atraumatic Eyes EOMs intact bilaterally Neck General: normal visual inspection Chest inspection of chest normal and palpation of chest normal Resp normal respiratory effort Auscultation: clear to auscultation bilaterally Cardio regular rate, regular rhythm, S1 normal heart sound and S2 normal heart sound Jugular Venous Distention: JVD GI normal to inspection, nondistended, normoactive bowel sounds Extremity normal capillary refill and no pedal edema Peripheral Pulses: Yes pulses 2+ throughout and femoral pulses present Skin no rashes or lesions noted Neuro oriented x3 and CN's II-XII intact bilaterally Psych Appearance: grossly normal and appropriate Assessment & Plan Assessment/Plan (1) Non-STEMI (non-ST elevated myocardial infarction): PLAN: He does have a history of coronary artery disease and now presents with delirium and confusion and is noted to have elevated cardiac enzymes. * The pattern of the above at the moment does not appear to be following a rise and fall pattern and may not be an acute event. Cannot exclude the above due to a cerebrovascular event * Will obtain limited echocardiogram to assess ventricular function. His previous ejection fraction a year ago was noted to be 50 to 55% * It appears from the MRI that patient may have had a subacute infarct and also has carotid stenosis. * Any return to the cardiac catheterization lab would need to be evaluated in the context of possibly giving a GP23A inhibitor which may worsen any strokelike symptoms. * He does not require at this time any further colchicine or indomethacin. * Will hold off on therapeutic dose Lovenox (2) Stented coronary artery: PLAN: He previously had a right coronary artery stent with mild disease noted in the left anterior descending artery and circumflex coronary artery * He will continue with the risk factor modification with aspirin and Plavix, the latter on recommendation of neurology * Continue high intensity statin * Low-dose beta-bakari as tolerated * MERON inhibitor * * Thank you for allowing me to participate in the care of your patient. Please don't hesitate to call if any issues arise.
[2021-08-12] MEDS: Lisinopril 2.5 MG Tablet PO (08:41)
[2021-08-12] MEDS: Clopidogrel Bisulfate 75 MG Tablet PO (08:41)
[2021-08-12] MEDS: Aspirin 325 MG Tablet PO (08:41)
[2021-08-12] MEDS: Pantoprazole Sodium 40 MG Tablet PO (08:41)
--- NOTE | 2021-08-12 13:35 | CASEMGMT ---
RN CM called patient in room for initial transition planning/care coordination assessment. RN KARIAN introduced self and role at [facility]. Patient is alert and oriented. Patient willing to participate in assessment and is able to answer all questions appropriately. Care providers, pharmacy, and demographics verified. Patient wishes to discharge home, denies need for home health at this time. Patient states he has no further needs or concerns at this time. CM to follow for discharge planning needs that may arise. PCP: NO PCP, CM to provide patient with list Specialists: none [facility] Insurance: [employer] Prescription Benefit: yes Living Will/HPOA: none LNOK: brother Living Arrangements: Patient lives with brother in a first floor apartment. Patient states he is independent at home. Transportation: self/brother DME/HHC: Patient states he has raised toilet and grab bars at home. Patient denies previous HHC. No preference for DME. Disposition Plan: Patient to discharge home with family support and follow-up plans in place. Lilly WOODS, RN, CM
--- NOTE | 2021-08-12 14:02 | CASEMGMT ---
SW met w/pt complete PHQ-9. Though pt is showing some signs of depression per the PHQ-9 tool, pt attributes the symptoms to symptoms of the stroke. No resources needed at this time. BIBI [place]
--- NOTE | 2021-08-12 14:54 | PN.HOSP_ITS ---
Subjective Subjective Patient seen and examined. He had no complaints and had an uneventful night. He denies any weakness, numbness or tingling in any extremity. Review of systems otherwise negative. Objective Data Objective Data Vital Signs: Vital Signs Temp Pulse Resp BP Pulse Ox 96.6 F L 70 18 99/66 95 08/12/21 12:39 08/12/21 12:39 08/12/21 12:39 08/12/21 12:39 08/12/21 12:39 Oxygen Delivery Method Room Air Weight: 155 lb 3.287 oz Body Mass Index (BMI) 24.4 Intake & Output: Intake and Output for Last 24 Hours 08/10/21 08/11/21 08/12/21 23:59 23:59 23:59 Intake Total 1000 / 1880 1080 / 1080 Output Total 200 / 200 Balance 800 / 1680 1080 / 1080 Lab / Micro Data Result Diagrams: 08/12/21 06:44 08/12/21 06:44 Labs: Laboratory Results - last 24 hr 08/10/21 16:49: POC Glucose 97 08/11/21 14:50: COVID-19 (LONG) Not Detected 08/11/21 15:08: Troponin I High Sens 2233 H* 08/12/21 06:44: WBC 9.3, RBC 4.48 L, Hgb 14.2, Hct 42.5, MCV 94.9 H, MCH 31.7, MCHC 33.4, RDW Std Deviation 44.2 H, RDW Coeff of Julita 12.8, Plt Count 281, MPV 10.2, Immature Gran % (Auto) 1.300 H, Neut % (Auto) 57.2, Lymph % (Auto) 30.4, [place] % (Auto) 9.5, Eos % (Auto) 1.3, Baso % (Auto) 0.3, Absolute Neuts (auto) 5.3, Absolute Lymphs (auto) 2.83, Nucleated RBC % 0 08/12/21 06:44: Sodium 143, Potassium 3.8, Chloride 111 H, Carbon Dioxide 26.0, Anion Gap 6, BUN 17, Creatinine 0.84, Estim Creat Clear Calc 88.47, Est GFR (MDRD) Af Amer 118, Est GFR (MDRD) Non-Af 98, BUN/Creatinine Ratio 20.3 H, Glucose 78, Calcium 8.4 L Micro: Microbiology 08/10/21 22:48 Mucosa - Nasopharyngeal Respiratory Panel (PCR) - Final 08/10/21 19:10 Urine, Clean Catch Legionella Antigen - Final 08/10/21 19:10 Urine, Clean Catch Streptococcus pneumoniae Antigen (M - Final Radiography Diagnostic Testing: Radiology Impression Echocardiogram 08/10/21 22:16 Interpretation Summary Normal LV size. Left ventricular systolic function is normal. The estimated ejection fraction is 60 %. Structurally normal valves. Ordering Physician: Nicki Erazo Referring Physician: TAMMIE PCP Performed By: Henna Carmichael, FLORENCIO, RVT Physical Exam Const alert, oriented x3 and no apparent distress Exam Limitations: no limitations HEENT head/scalp atraumatic and moist oral mucous membranes Head and Scalp: normocephalic Eyes PERRL and EOMs intact bilaterally Neck no lymphadenopathy Resp normal respiratory effort, no retractions, no use of accessory muscles and clear to auscultation bilaterally Cardio regular rate, regular rhythm, S1 normal heart sound, S2 normal heart sound and no murmurs GI normal to inspection, nondistended, normoactive bowel sounds, soft to palpation, non-tender and non-distended Extremity normal to inspection, full ROM and no clubbing, cyanosis or edema Peripheral Pulses: Yes pulses 2+ throughout Skin no rashes or lesions noted Neuro CN's II-XII intact bilaterally and moves all extremities Sensorium / Orientation: awake and alert Psych affect normal Assessment & Plan Assessment/Plan (1) Acute delirium: (2) Pneumonia due to COVID-19 virus: (3) COVID-19: (4) Encephalopathy acute: (5) Non-STEMI (non-ST elevated myocardial infarction): PLAN: #NOnstemi * Patient complained of chest pain today. EKG done showed no T wave inversions in lateral leads. * Initial troponin done was markedly elevated at 2171. * Patient already on aspirin and Brilinta as well as high intensity statin. * therapeutic lovenox not given due to concerns for stroke * 2D echo: * per cardiology, no plans for a cardiac cath now. * SL nitroglycerin prn * * #Acute COVID-19 infection * patient remains on room air * on decadron * breathing treatment with bronchodilators. * titrate oxygen to maintain sats >90% * #Acute metabolic encephalopathy due to acute CVA * Patient apparently had transient right-sided upper and lower extremity weakness as well as altered speech and imbalance which was concerning for CVA. * CT of the brain was negative for any acute intracranial pathology. * MRI of the brain showed acute versus subacute left parietal lobe infarct which may represent watershed infarct from hypoperfusion. MRA of the head and neck showed critical 99% stenosis of occlusion of the proximal right internal carotid artery. * Carotid ultrasound ordered. * 2D echo: Normal left ventricular size and systolic function with estimated EF of 60% and structurally normal valves. * [facility] neurology was consulted and recommended a hypercoagulable work-up due to concerns that this may have been thromboembolic. Hypercoagulable panel ordered * On aspirin and Plavix. Also on high intensity statin. * PT OT on board. Fall precautions. * #Right carotid artery stenosis * MRA of the head and neck showed 99% stenosis of the proximal right internal carotid artery * carotid USG ordered to confirm this. * WIll need vascular surgery evaluation once this is confirmed. I did speak to Dr Snyder vascular surgery who said patient could follow up with him in 1-2 weeks on outpaitent basis. He advised that in light of his Nonstemi, he would need cardiac clearance before surgery can be scheduled. * #Bradycardia * Resolved. * #CAD s/p PCI: On aspirin, Brilinta and statin. Metoprolol and lisinopril resumed. #Hyperlipidemia: On high intensity statin #GERD: On PPI DVT prophylaxis: SCDs. Charges/Coding Visit Charges Inpatient E&M: 50216 Subs Hosp L3
[2021-08-12] MEDS: Atorvastatin Calcium 80 MG Tablet PO (19:33)
[2021-08-12] MEDS: BENZOCAINE/MENTHOL 1 LOZENGE MUCOUS MEM (19:35)
[2021-08-12] MEDS: guaiFENesin 10 ML UDC (200MG/10ML) 20 ML PO (19:35)
[2021-08-13] VITALS (7 sets, daily range): BP systolic 104–122; BP diastolic 67–82; PULSE 46–61; RESP 16–20; TEMP 36.4–37; O2SAT 95–98
[2021-08-13 07:30] LABS: Absolute Lymphocyte Count 3.76 X10^3/uL (0.83-4.51); Absolute Neutrophil Count 6.6 X10^3/uL (2.0-7.7); Basophil# 0.02 X10^3/uL; Basophil% 0.2 % (0-1); Eosinophil# 0.14 X10^3/uL; Eosinophils% 1.2 % (0-5); Hematocrit 43.3 % (40-54); Hemoglobin 14.9 g/dL (13.0-16.5); Lymphocyte # 3.76 X10^3/ul (0.83-4.51); Lymphocyte % 32.1 % (19-41); Mean Corp Hgb Conc 34.4 g/dL (32-36); Mean Corpuscular Hgb 32.7 pg (27.0-32.0); Mean Corpuscular Volume 95.2 fL (80-94); Mean Platelet Vol. 10.3 fl (6.2-12.0); Monocyte# 1.06 X10^3/uL; Monocyte% 9.1 % (0-10); NRBC Flagged by Analyzer 0 % (0-5); Neutrophil % 56.4 % (47-70); Platelet Count 280 K/mm3 (150-450); RBC Distribution Width CV 13.1 % (11.6-14.6); RBC Distribution Width SD 46.2 fl (35.1-43.9); Red Blood Count 4.55 M/mm3 (4.6-6.2); White Blood Count 11.7 K/mm3 (4.4-11.0)
[2021-08-13 07:58] LABS: Anion Gap 6 (5-15); BUN 19 mg/dL (7-18); BUN/Creat Ratio 18.6 RATIO (10-20); Calcium,Total 8.7 mg/dL (8.5-10.1); Chloride 107 mmol/L (98-107); Creatinine, Serum 1.02 mg/dL (0.70-1.30); EST Glomerular Filtration Rate 78 mL/min (>60); Est Glom Filt Rate - Afr Amer 94 mL/min (>60); Estimated Creatinine Clearance 72.75 ml/min; Glucose 80 mg/dL (74-106); Potassium 4.2 mmol/L (3.5-5.1); Sodium Level 142 mmol/L (136-145)
[2021-08-13] MEDS: Aspirin 325 MG Tablet PO (09:17)
[2021-08-13] MEDS: Clopidogrel Bisulfate 75 MG Tablet PO (09:17)
[2021-08-13] MEDS: Lisinopril 2.5 MG Tablet PO (09:17)
[2021-08-13] MEDS: Pantoprazole Sodium 40 MG Tablet PO (09:17)
--- NOTE | 2021-08-13 12:38 | PCM.DC ---
Discharge Instructions Diet Discharge Diet: No restrictions Activity Discharge Activity: Return to Normal Activity Weight Bearing Status: Full weight bearing Follow Up Care Test Results: Test results from this visit will be discussed in further detail at your follow-up appointment, if applicable. Discharge Plan Admission Admit Date/Time: 08/10/21 21:41 Primary Reason for Your Visit: left side cerebral stroke Attending Provider: Elvis Frazier Primary Care Provider: Care Physician,No Primary Consulting Providers: Michael Simon Instructions Additional Instructions / Restrictions: You will need to follow up with Dr. Snyder-take your medicines as directed Do not smoke See outpatient physical therapy Discharge Orders/Prescriptions Prescriptions: New atorvastatin 80 mg Tablet 80 mg PO QHS Qty: 30 RF: 0 clopidogrel 75 mg Tablet 75 mg PO DAILY Qty: 60 RF: 0 Continued aspirin 81 MG tablet 81 mg PO DAILY@0800 Qty: 30 RF: 1 pantoprazole 40 MG tablet 40 mg PO DAILY Qty: 30 RF: 0 nitroglycerin 0.4 MG tablet, sublingual 0.4 mg sublingual Q5M PRN (Reason: Cardiac/Chest Pain) Qty: 30 RF: 0 lisinopril 2.5 MG tablet 2.5 mg PO DAILY Qty: 30 RF: 1 metoprolol tartrate 25 MG tablet 12.5 mg PO BID Qty: 30 RF: 1 Discontinued indomethacin 25 MG capsule 25 mg PO TIDCM Qty: 21 RF: 0 colchicine 0.6 MG tablet 0.6 mg PO BID Qty: 6 RF: 0 levofloxacin 500 MG tablet 500 mg PO DAILY Qty: 5 RF: 0 dexamethasone [Decadron] 6 mg tablet 6 mg PO DAILY Qty: 10 RF: 0 ondansetron 4 mg tablet,disintegrating 4 mg PO Q8H PRN (Reason: nausea and vomiting) Qty: 10 RF: 0 atorvastatin [Lipitor] 40 mg tablet 10 mg PO DAILY RF: 0 Brilinta 90 mg tablet 90 mg PO BID Qty: 180 RF: 3 Referrals / Follow Up: [facility] [Other] - Within 2 Weeks Juan Snyder MD [STAFF PHYSICIAN] - Within 1 Month (call and make appointment) Michael Simon MD [STAFF PHYSICIAN] - See Referral Note (in 3-4 weeks-call for appointment) Care Physician,No Primary [Primary Care Provider] - Disposition Disposition (needs filled in before D/C Order can be placed): Home, Self Care
--- NOTE | 2021-08-13 13:33 | CASEMGMT ---
Therapy is recommending further therapy and pt is agreeable to OP therapy at [facility]. Pt states no concerns getting transportation. Pt provided script for OP at [facility] and script faxed to [facility]. Pt voices no further questions/concerns/needs. Clarita DAVIES CM
--- NOTE | 2021-08-13 15:18 | NURSING ---
pt out at desk asking whats taking so long on covid vaccine. pharmacy called d/t pt frustration. med not in fridge. was told that was on its way up pt agreeing to stay but stated, my ride is on the way despite rn telling pt to not call until
[2021-08-13] MEDS: COVID-19 VAC,AD26(JANSSEN)/PF 0.5 ML SYRINGE IM (15:25)
--- NOTE | 2021-08-13 15:37 | NURSING ---
pt given covid vac info sheet. shot administered to rt arm. pt screamed and almost pulled away from rn during shot administration. site clear despite pt moving. pt very irritable and angry generally at everything. refusing to wait for shot time as instructed per policy. stated, i waited all damn day and im getting the hell out of here
--- NOTE | 2021-08-13 20:03 | DS.PCM_ITS ---
Providers Date of Admission: 08/10/21 Date of Discharge: 08/13/21 Primary Care Physician: Jesica Primary Care Phys Consultations 08/11/21 10:10 Consult: Cardiology Routine Consulting Provider: Michael Simon Reason for Consult: nonstemi EMERGENT Consult: No MD Notified: Yes Date Notified: 08/11/21 Time Notified: 10:11 Method of Notification: Text Reason For Visit: COVID, POSSIBLE CVA/ENCEPHALOPATHY Diagnosis Discharge Diagnosis (1) Acute delirium: Status: Acute Code(s): R41.0 - Disorientation, unspecified (2) Pneumonia due to COVID-19 virus: Status: Acute Code(s): U07.1 - COVID-19; J12.82 - Pneumonia due to coronavirus disease 2019 (3) COVID-19: Status: Acute Code(s): U07.1 - COVID-19 (4) Encephalopathy acute: Status: Acute Code(s): G93.40 - Encephalopathy, unspecified (5) Non-STEMI (non-ST elevated myocardial infarction): Status: Acute Code(s): I21.4 - Non-ST elevation (NSTEMI) myocardial infarction Plan: 1. Acute left parietal lobe stroke #2 acute encephalopathy secondary to #1 #3 COVID-19 pneumonia-present on admission #4 [id number] II #5 Right and left carotid occlusive disease-mild to moderate No evidence for severe right carotid occlusive disease Medications at Discharge Home Medications aspirin 81 mg PO DAILY@0800 #30 tab 04/30/20 lisinopril 2.5 mg PO DAILY #30 tab 04/30/20 nitroglycerin 0.4 mg SUBLINGUAL Q5M PRN #30 tab.subl 04/30/20 pantoprazole 40 mg PO DAILY #30 tab 04/30/20 atorvastatin 80 mg PO QHS #30 tab 08/13/21 clopidogrel 75 mg PO DAILY #60 tab 08/13/21 metoprolol tartrate 12.5 mg PO BID #30 tab 08/13/21 Hospital Course Operations None Procedures 2-D Echocardiogram and - (Carotid duplex scan) Summary of Care Provided Minutes Spent on Discharge: 32 Hospital Course: This 66-year-old white male was seen in the emergency room at [facility] with complaints of right-sided weakness and confusion. Patient had recently been diagnosed with COVID-19 infection and was seen in the ER and discharged home with Decadron. Work-up in the ER included a brain CT which showed no acute findings, chest x- ray revealed multifocal infiltrates suggestive of COVID-19 pneumonia, labs revealed elevated white blood cell count of 17.5, and chemistry profile was unremarkable. Patient was admitted to PCU, a work-up to rule out a stroke was instituted and the patient was seen by teleneurology and underwent an MRI of the brain along with MRA of the head and neck. The MRA of the neck revealed stenosis of the right carotid artery-this was read out as severe, patient had evidence of an acute left parietal stroke on his MRI of his brain. Patient's troponin elevated to a high of 2233, he was seen in consultation by cardiology who felt that the patient had a non-STEMI, echocardiogram revealed normal LV function however. It was felt that the patient could be treated medically and did not need to undergo a cardiac catheterization. Patient was seen in consultation by PT and OT. Patient underwent a carotid duplex which showed no severe stenosis of the right carotid artery. On 08/13/2021, patient was seen and examined: On examination he appeared in good health and spirits. Vital signs as documented. Skin warm and dry and without overt rashes. Neck without JVD, neck was supple, trachea midline, thyroid was normal. Lungs clear bilaterally, normal air movement was noted. Heart exam notable for regular rhythm, normal sounds and absence of murmurs, rubs or gallops. Abdomen unremarkable and without evidence of organomegaly, masses, or abdominal aortic enlargement. Bowel sounds are present, abdomen is not distended. Extremities nonedematous, no cyanosis was noted, no clubbing was noted. Neuro: Cranial nerves II through XII are grossly intact, no focal motor deficits were noted, sensation to light touch and pinprick intact, motor exam 5/5 throughout. Psych: Patient is alert and oriented x3, he does not appear anxious or depressed, he does not appear agitated. On 08/13/2021, patient was seen and examined and felt to be stable for discharge home. Weight / BMI Weight Weight: 70.3 kg Body Mass Index (BMI) 24.4 ABG / Lab / Microbiology Data Result Diagrams: 08/13/21 06:16 08/13/21 06:16 Laboratory: Laboratory Results - last 24 hr 08/13/21 06:16: WBC 11.7 H, RBC 4.55 L, Hgb 14.9, Hct 43.3, MCV 95.2 H, MCH 32.7 H, MCHC 34.4, RDW Std Deviation 46.2 H, RDW Coeff of Julita 13.1, Plt Count 280, MPV 10.3, Immature Gran % (Auto) 1.000 H, Neut % (Auto) 56.4, Lymph % (Auto) 32.1, [place] % (Auto) 9.1, Eos % (Auto) 1.2, Baso % (Auto) 0.2, Absolute Neuts (auto) 6.6, Absolute Lymphs (auto) 3.76, Nucleated RBC % 0 08/13/21 06:16: Sodium 142, Potassium 4.2, Chloride 107, Carbon Dioxide 29.0, Anion Gap 6, BUN 19 H, Creatinine 1.02, Estim Creat Clear Calc 72.75, Est GFR (MDRD) Af Amer 94, Est GFR (MDRD) Non-Af 78, BUN/Creatinine Ratio 18.6, Glucose 80, Calcium 8.7 Microbiology: Microbiology 08/10/21 19:38 Blood Culture (Wb) - Anticubital Left Blood Culture - Preliminary No growth in 48 hours. 08/10/21 22:48 Mucosa - Nasopharyngeal Respiratory Panel (PCR) - Final 08/10/21 19:10 Urine, Clean Catch Legionella Antigen - Final 08/10/21 19:10 Urine, Clean Catch Streptococcus pneumoniae Antigen (M - Final D/C Instructions Discharge Diet: No restrictions Weight Bearing Status: Full weight bearing Meaningful Use Info Meaningful Use Diagnoses (Choose all that apply): Ischemic CVA CVA Therapy Assessed for PT,OT and/or ST?: Yes Ischemic Stroke Antithrombotic order at d/c?: Yes Dx of Atrial fib/flutter?: No Anticoagulant at discharge?: No Reason anticoagulant not ordered: Treatment not Indicated Statins at discharge?: Yes Primary Dx Acute Ischemic CVA?: Yes IV tPA ordered during stay?: No Reason IV t-PA not ordered: Procedure not Indicated Discharge Plan Admission Admit Date/Time: 08/10/21 21:41 Primary Reason for Your Visit: left side cerebral stroke Attending Provider: Elvis Frazier Primary Care Provider: Care Physician,No Primary Consulting Providers: Alfred,Michael Instructions Additional Instructions / Restrictions: You will need to follow up with Dr. Snyder-take your medicines as directed Do not smoke See outpatient physical therapy Discharge Orders/Prescriptions Prescriptions: New atorvastatin 80 mg Tablet 80 mg PO QHS Qty: 30 RF: 0 clopidogrel 75 mg Tablet 75 mg PO DAILY Qty: 60 RF: 0 Continued aspirin 81 MG tablet 81 mg PO DAILY@0800 Qty: 30 RF: 1 pantoprazole 40 MG tablet 40 mg PO DAILY Qty: 30 RF: 0 nitroglycerin 0.4 MG tablet, sublingual 0.4 mg sublingual Q5M PRN (Reason: Cardiac/Chest Pain) Qty: 30 RF: 0 lisinopril 2.5 MG tablet 2.5 mg PO DAILY Qty: 30 RF: 1 metoprolol tartrate 25 MG tablet 12.5 mg PO BID Qty: 30 RF: 1 Discontinued indomethacin 25 MG capsule 25 mg PO TIDCM Qty: 21 RF: 0 colchicine 0.6 MG tablet 0.6 mg PO BID Qty: 6 RF: 0 levofloxacin 500 MG tablet 500 mg PO DAILY Qty: 5 RF: 0 dexamethasone [Decadron] 6 mg tablet 6 mg PO DAILY Qty: 10 RF: 0 ondansetron 4 mg tablet,disintegrating 4 mg PO Q8H PRN (Reason: nausea and vomiting) Qty: 10 RF: 0 atorvastatin [Lipitor] 40 mg tablet 10 mg PO DAILY RF: 0 Brilinta 90 mg tablet 90 mg PO BID Qty: 180 RF: 3 Referrals / Follow Up: Juan Snyder MD [STAFF PHYSICIAN] - Within 1 Month (Please call and set up an appointment. ) Michael Simon MD [STAFF PHYSICIAN] - See Referral Note (Office will be contacting you to setup an appointment. ) Care Physician,No Primary [Primary Care Provider] - Disposition Disposition (needs filled in before D/C Order can be placed): Home, Self Care Charges/Coding Visit Charges Inpatient E&M: 67704 Disch Hosp
--- NOTE | 2021-08-14 14:43 | CASEMGMT ---
SAMSON CM Discharge Follow-Up Phone Call. Lace: 12 Strata: 3 Discharge Date: 08/13/21 Adm Dx: COVID, Possible CVA/Encephalopathy Attempted discharge f/u phone call. No answer. Non-identifying VM received. Non-descript VM left requesting return call if there are any questions or concerns. Phone number provided. Ashley WOODS RN CM
[2021-08-15 08:43] LABS: Activated Protein C Resistance 2.8 ratio (2.2-3.5)
[2021-08-15 14:39] LABS: Protein C, Functional 146 % (73-180); Protein S, Funtional 73 % (63-140)
== END 2021-08-13 15:31 | disposition home or self-care (01) | DRG 64 ==
LOC: ED 21:06 → PCU 21:16
PROVIDERS: Internal Medicine Cardiovascular Disease; Student in an Organized Health Care Education/Training Program; Admitting Provider Family Medicine; Emergency Provider Emergency Medicine; Visit Provider Internal Medicine
DX: I63.9 Cerebral infarction, unspecified (principal); U07.1 COVID-19; J12.82 Pneumonia due to coronavirus disease 2019; I21.A1 Myocardial infarction type 2; G93.41 Metabolic encephalopathy; G81.91 Hemiplegia, unspecified affecting right dominant side; R47.01 Aphasia; R29.703 NIHSS score 3; I65.23 Occlusion and stenosis of bilateral carotid arteries; I25.10 Atherosclerotic heart disease of native coronary artery without angina pectoris; I10 Essential (primary) hypertension; I25.2 Old myocardial infarction; E78.5 Hyperlipidemia, unspecified; K21.9 Gastro-esophageal reflux disease without esophagitis; F17.210 Nicotine dependence, cigarettes, uncomplicated; Z23 Encounter for immunization; Z95.5 Presence of coronary angioplasty implant and graft; Z79.02 Long term (current) use of antithrombotics/antiplatelets; Z79.82 Long term (current) use of aspirin; Z79.899 Other long term (current) drug therapy; Z86.73 Personal history of transient ischemic attack (TIA), and cerebral infarction without residual deficits
CPT/HCPCS: 0031A; 36415; 70450; 70544; 70547; 70551; 71045; 80048; 80053; 80061; 81001; 81241; 82728; 82962; 83036; 83605; 83615; 83735; 83880; 84145; 84443; 84484; 85025; 85303; 85306; 85307; 85379; 86140; 87040; 87449; 87633; 87635; 91303; 92507; 92610; 93005; 93306; 93880; 94762; 97162; 97165; 97530; 97535; 99285; 99406; G0008; J7030; U0005; 90686; A4216; U0003

== ENCOUNTER 2022-02-26 11:53 | Emergency (ER) | payer MEDICARE, SELFPAY ==
[2022-02-26 11:54] VITALS: BP 175/99; PULSE 50; RESP 24; TEMP 36.3; O2SAT 97; BMI 25.1
[2022-02-26 12:15] VITALS: PULSE 45; RESP 17; O2SAT 97
--- NOTE | 2022-02-26 12:57 | EKG12_ITS ---
Test Reason : CP Blood Pressure : / mmHG Vent. Rate : 048 BPM Atrial Rate : 048 BPM P-R Int : 140 ms QRS Dur : 094 ms QT Int : 434 ms P-R-T Axes : 002 011 -17 degrees QTc Int : 387 ms Sinus bradycardia Otherwise normal ECG Confirmed by ANGELINE COLLINS, JAZ ([id number]), editorial director ELLIOTT TRACEY ([id number]) on 02/28/2022 11:45:10 AM Referred By: KIET Confirmed By:JAZ MARCUS MD
[2022-02-26 13:05] LABS: Absolute Lymphocyte Count 2.59 X10^3/uL (0.83-4.51); Absolute Neutrophil Count 8.9 X10^3/uL (2.0-7.7); Basophil# 0.03 X10^3/uL; Basophil% 0.2 % (0-1); Eosinophil# 0.32 X10^3/uL; Eosinophils% 2.5 % (0-5); Hematocrit 44.7 % (40-54); Hemoglobin 15.5 g/dL (13.0-16.5); Lymphocyte # 2.59 X10^3/ul (0.83-4.51); Lymphocyte % 20.3 % (19-41); Mean Corp Hgb Conc 34.7 g/dL (32-36); Mean Corpuscular Hgb 32.9 pg (27.0-32.0); Mean Corpuscular Volume 94.9 fL (80-94); Mean Platelet Vol. 10.8 fl (6.2-12.0); Monocyte# 0.89 X10^3/uL; NRBC Flagged by Analyzer 0 % (0-5); Neutrophil # 8.85 X10^3/uL (2.7-7.7); Neutrophil % 69.6 % (47-70); Platelet Count 245 K/mm3 (150-450); RBC Distribution Width CV 13.4 % (11.6-14.6); RBC Distribution Width SD 46.8 fl (35.1-43.9); Red Blood Count 4.71 M/mm3 (4.6-6.2); White Blood Count 12.7 K/mm3 (4.4-11.0)
--- NOTE | 2022-02-26 13:07 | EDS_ITS ---
HPI History of Present Illness Chief Complaint: Chest Pain Informant: patient Onset/Context/Timing Onset: Today and Month(s) Activity at onset: sudden Timing: Intermittent Quality: Positive for Pain and Sharp Location: Left Chest Current Severity: Mild Maximum Severity: Mild Worsened By: Nothing Relieved By: Nothing Associated Symptoms: Negative for Nausea, Vomiting, Diaphoresis, Dyspnea, Cough, Fever, Lightheadedness, Acid Reflux and Palpitations Narrative Narrative: 67-year-old male history of a prior UT with a heart cath and stent done here about 2 years ago. Ever since that time 2 years ago he has had intermittent chest pain for the last 2 years. Not associated with exertion. He denies any shortness of breath or nausea. There is no diaphoresis. She does not follow-up with cardiology for this. He has never had a DVT or PE. No leg swelling. Prior Similar Symptoms: Yes Recent Illness/Hospitalization: No CVD Risk Factors: Negative for Diabetes PE Risk Factors: Negative for Recent Travel/Surgery, Recent Immobilization, Prior DVT or PE, Cancer and OCP + Smoking + >/=35 TAD Risk Factors: Negative for Marfan's Syndrome PFSH PFSH Medical History Acute delirium Arteriosclerosis of coronary artery in patient with history of myocardial infarction Community acquired pneumonia COVID-19 COVID-19 virus infection Encephalopathy acute History of stroke History of stroke Hyperlipidemia Pneumonia due to COVID-19 virus STEMI (ST elevation myocardial infarction) Tobacco abuse Home Medications aspirin 81 mg PO DAILY@0800 #30 tab 04/30/20 [Rx Last Taken Unknown] lisinopril 2.5 mg PO DAILY #30 tab 04/30/20 [Rx Last Taken Unknown] nitroglycerin 0.4 mg SUBLINGUAL Q5M PRN #30 tab.subl 04/30/20 [Rx Last Taken Unknown] pantoprazole 40 mg PO DAILY #30 tab 04/30/20 [Rx Last Taken Unknown] atorvastatin 80 mg PO QHS #30 tab 08/13/21 [Rx Last Taken Unknown] clopidogrel 75 mg PO DAILY #60 tab 08/13/21 [Rx Last Taken Unknown] metoprolol tartrate 12.5 mg PO BID #30 tab 08/13/21 [Rx Last Taken Unknown] Allergy/AdvReac Type Severity Reaction Status Date / Time BEES Allergy Anaphylaxis Uncoded 02/26/22 11:54 Family History Mother CVA (cerebral vascular accident) Hypertension Father CVA (cerebral vascular accident) Hypertension Surgical History Stented coronary artery (04/28/20) Social History household members: none housing: apartment pets and animals: No Smoking Status: Current every day smoker tobacco type: cigarettes alcohol intake: current alcohol intake frequency: a few times a month substance use type: does not use ROS ROS ED ROS Narrative Denies recent illness. Review of Systems ROS Unobtainable: Denies due to encephalopathy Constitutional Constitutional ED: Denies fever(s) Eyes Eyes: Denies none ENT ENT ED: Denies ear pain Cardiovascular Cardiovascular: Reports as per HPI and chest pain; Denies palpitations Respiratory/Chest Respiratory/Chest: Denies cough or dyspnea Gastrointestinal Gastrointestinal: Denies abdominal pain, diarrhea, nausea or vomiting Genitourinary Genitourinary ED: Denies dysuria Musculoskeletal Musculoskeletal: Denies myalgias Integumentary Denies rash Neurologic Neurologic: Denies headache(s) Psychiatric Psychiatric: Denies depression Endocrine Endocrinology: Denies polyuria Hematologic/Lymphatic Hematologic/Lymphatic: Denies easy bruising Allergic/Immunologic Allergic/Immunologic ED: Denies urticaria EXAM Physical Exam Narrative Exam Narrative: 67-year-old male no acute distress. Vital signs stable afebrile. Pulse ox 97% room air no signs hypoxia. H EENT exam unremarkable. Lungs clear to auscultation bilaterally. Heart rate is bradycardic at around 50 and regular rhythm no murmur. Chest wall nontender. Abdomen soft nontender. Moving all 4 extremities. Calves nontender no edema no cords. Equal symmetrical radial pulses. Otherwise exam unremarkable. Const Vital Signs: 02/26/22 11:54 02/26/22 12:15 02/26/22 13:05 Temperature 97.3 F L Temperature Source Temporal Pulse Rate 50 L 45 L Respiratory Rate 24 H 17 Respiratory Effort Normal Non-Labored Blood Pressure 175/99 H Blood Pressure Mean 124 Pulse Ox 97 97 Oxygen Delivery Method Room Air Room Air Room Air Positive well nourished and well developed; Negative for obese, cachectic, contractures or unkempt General Appearance ED: well developed and NAD; Negative for unkempt, cachectic, contractures or pallor Nutritional Appearance: Negative for cachectic or obese HEENT Reports moist mucous membranes normocephalic and atraumatic; Negative for trauma or tenderness Eyes PERRL and EOMs intact bilaterally General Eye ED: Negative for pale conjunctiva or scleral icterus Neck no lymphadenopathy, supple and no JVD General: Negative for tenderness Chest Wall inspection of chest normal and palpation of chest normal Chest: Negative for tenderness Resp normal respiratory effort and clear to auscultation bilaterally Effort and Inspection: respiratory distress Auscultation: Negative for rales, rhonchi or wheezes Cardio regular rate, regular rhythm, S1 normal heart sound and S2 normal heart sound GI normal to inspection, nondistended, normoactive bowel sounds, soft to palpation, non-tender, non-distended and no masses; Negative for hepatosplenomegaly Auscultation: Negative for hyperactive bowel sounds Palpation: Negative for splenomegaly Back/Spine no CVA tenderness and no thoracic nor lumbar tenderness General Back: Negative for CVA tenderness Cervical Spine: Negative for cervical spine tenderness Extremity normal to inspection General Extremety ED: Negative for edema, pulses abnormal or tenderness General Extremity: Negative for edema or pulses abnormal Neuro oriented x3 Sensorium / Orientation: awake, alert, oriented to person, oriented to place and oriented to time Motor Exam: strength 5/5 throughout Psych mental status grossly normal Appearance: Negative for unkempt Mood & Affect: Negative for depressed or tearful Skin no rashes or lesions noted and no wounds General Skin Exam: Negative for jaundice or pallor Heart Score History: Slightly/Non-Suspicious ECG: Normal Age: >/= 65 years Risk Factors: >/= 3 Risk Factors or History of CAD Troponin: </= Normal Limit Score: 4 MDM MDM MDM Narrative Medical decision making narrative: 67-year-old male atypical chest pain is gone for about 2 years. Daily nonexertional. Undergo cardiac work-up with its negative he will be referred for outpatient follow-up. Exam is benign. Repeat exam patient doing well at 2:01 PM. To be discharged home with outpatient follow-up with his primary care physician. Lab Data Attestation: I reviewed the patient's lab results. Lab results narrative: CBC shows a white count of 12. H&H 15 and 44. Chemistry is normal anion gap is 6 normal BUN and creatinine. Troponins 8. Given this is been going on for anything 1 to 2 years I do not think he needs a second troponin. Labs: Laboratory Results - last 24 hr 02/26/22 02/26/22 12:10 12:10 WBC 12.7 H RBC 4.71 Hgb 15.5 Hct 44.7 MCV 94.9 H MCH 32.9 H MCHC 34.7 RDW Std Deviation 46.8 H RDW Coeff of Julita 13.4 Plt Count 245 MPV 10.8 Immature Gran % (Auto) 0.400 Neut % (Auto) 69.6 Lymph % (Auto) 20.3 Warrick % (Auto) 7.0 Eos % (Auto) 2.5 Baso % (Auto) 0.2 Absolute Neuts (auto) 8.9 H Absolute Lymphs (auto) 2.59 Nucleated RBC % 0 Sodium 138 Potassium 3.9 Chloride 107 Carbon Dioxide 25.0 Anion Gap 6 BUN 13 Creatinine 1.11 Estim Creat Clear Calc 70.66 Est GFR (MDRD) Af Amer 86 Est GFR (MDRD) Non-Af 71 BUN/Creatinine Ratio 11.7 Glucose 123 H Calcium 9.0 Troponin I High Sens 8 Radiography Chest X-Ray - ED: 1 View, Read by ED Physician, Heart, Lungs, Mediastinum, Bony Structures, No Acute Disease and Chronic Changes Diagnostic Testing: Clinical Impression(s) from Imaging Studies Chest X-Ray 02/26/22 13:15 IMPRESSION: Mild degree of persistent increased markings at the right lung base. Further follow-up recommended. Electronically Signed: Nicolás Delarosa MD at 13:29 EDT , Chest x-ray, portable, single view interpreted myself and radiologist shows some interstitial density right lower lung which has been present has not been seen in the past. Rhythm Strip Rhythm Strip: Sinus bradycardia Rate: 48 Ectopy: None EKG Initial EKG: Attestation: I personally reviewed and interpreted this EKG as follows: Interpretation: Sinus Rhythm and Sinus Bradycardia Comments: Sinus bradycardia rate of 48 no signs of acute UT or ischemia. T wave inversions in lead II and aVF. Discharge Plan Triage Chief Complaint: Chest Pain ED Provider: Logan Eagle Dx/Rx/DC Orders Clinical Impression: Chest pain of uncertain etiology, History of stroke, History of UT (myocardial infarction) Instructions: ED Chest Pain, Uncertain Cause Prescriptions: No Action aspirin 81 MG tablet 81 mg PO DAILY@0800 Qty: 30 RF: 1 pantoprazole 40 MG tablet 40 mg PO DAILY Qty: 30 RF: 0 nitroglycerin 0.4 MG tablet, sublingual 0.4 mg sublingual Q5M PRN (Reason: Cardiac/Chest Pain) Qty: 30 RF: 0 lisinopril 2.5 MG tablet 2.5 mg PO DAILY Qty: 30 RF: 1 atorvastatin 80 mg Tablet 80 mg PO QHS Qty: 30 RF: 0 clopidogrel 75 mg Tablet 75 mg PO DAILY Qty: 60 RF: 0 metoprolol tartrate 25 MG tablet 12.5 mg PO BID Qty: 30 RF: 1 Primary Care Provider: Leona Morelos Referrals: Leona Morelos MD [Primary Care Provider] - As soon as possible Activity Restrictions/Additional Instructions: Follow-up with her primary care provider. Disposition Disposition: Home, Self Care
--- NOTE | 2022-02-26 13:15 | RAD_ITS ---
STUDY: X-RAY CHEST REASON FOR EXAM: Male, 67 years old. Chest pain TECHNIQUE: Single AP portable view of the chest. COMPARISON: Comparison is made with prior study dated 08/10/2021. FINDINGS: EKG electrodes are seen. Persistent mild increased markings at the right lung base although this has improved. There is no demonstrated pleural abnormality. Normal size heart. Normal mediastinum and josh. Normal visualized pulmonary arteries. There is atherosclerotic tortuosity of the aortic arch and descending thoracic aorta. There are diffuse degenerative changes of the visualized thoracic spine. There is degenerative osteoarthritis of the bilateral shoulders. There is no demonstrated abnormality of the visualized soft tissue structures of the upper abdomen. RAD/Chest 1 View (Portable) IMPRESSION: Mild degree of persistent increased markings at the right lung base. Further follow-up recommended. Electronically Signed: Nicolás Delarosa MD at 13:29 EDT ,
[2022-02-26 13:23] LABS: Anion Gap 6 (5-15); BUN 13 mg/dL (7-18); BUN/Creat Ratio 11.7 RATIO (10-20); Chloride 107 mmol/L (98-107); Creatinine, Serum 1.11 mg/dL (0.70-1.30); EST Glomerular Filtration Rate 71 mL/min (>60); Est Glom Filt Rate - Afr Amer 86 mL/min (>60); Estimated Creatinine Clearance 70.66 ml/min; Glucose 123 mg/dL (74-106); Potassium 3.9 mmol/L (3.5-5.1); Sodium Level 138 mmol/L (136-145); Troponin-I HS (w/2H Reflex) 8 pg/mL (3.0-78.0)
[2022-02-26 15:02] LABS: Reflex Troponin-HS? (from REC) Y
== END 2022-02-26 14:12 | disposition home or self-care (01) ==
PROVIDERS: Emergency Provider Emergency Medicine; PCP Internal Medicine; Visit Provider Emergency Medicine
DX: R07.9 Chest pain, unspecified (principal); I25.10 Atherosclerotic heart disease of native coronary artery without angina pectoris; Z86.73 Personal history of transient ischemic attack (TIA), and cerebral infarction without residual deficits; F17.210 Nicotine dependence, cigarettes, uncomplicated; E78.5 Hyperlipidemia, unspecified; I25.2 Old myocardial infarction; Z86.16 Personal history of COVID-19; Z87.01 Personal history of pneumonia (recurrent); Z95.5 Presence of coronary angioplasty implant and graft; Z79.82 Long term (current) use of aspirin; Z79.899 Other long term (current) drug therapy; Z79.02 Long term (current) use of antithrombotics/antiplatelets
CPT/HCPCS: 71045; 80048; 84484; 85025; 93005; 99284; A4216